=== PATIENT | female | born 1940 | race Caucasian/White ===

== ENCOUNTER 2023-10-29 23:08 | Inpatient (IN) | payer MEDICARE, OTHER, SELFPAY ==
[2023-10-29] VITALS (8 sets, daily range): BP systolic 127–162; BP diastolic 53–122; BMI 38.3
[2023-10-29 19:34] LABS: % Basophils 0.4 % (0-2); % Immature Granulocytes 0.6 % (0-0.5); % Monocytes 6.5 % (1.7-9.3); % Neutrophils 83.5 % (42.2-75.2); Absolute Basophils 0.1 10^3/uL (0-0.2); Absolute Eosinophils 0.1 10^3/uL (0-0.7); Absolute Immature Granulocytes 0.1 10^3/uL (0-0.05); Absolute Lymphocytes 1.1 10^3/uL (1.2-3.4); Absolute Monocytes 0.9 10^3/uL (0.1-0.6); Absolute Neutrophils 11.4 10^3/uL (1.4-6.5); Hematocrit 34.7 % (37.0-47.0); Hemoglobin 11.2 g/dL (12.0-16.0); Mean Corp Hgb Conc. 32.3 g/dL (33.0-37.0); Mean Corpuscular Hgb 29.2 pg (27.0-31.0); Mean Corpuscular Volume 90.6 fL (81.0-99.0); Mean Platelet Volume 10.5 fL (7.4-10.4); Nucleated Red Blood Cells % 0 %; Platelet Count 315 10^3/uL (130-400); Red Blood Cell Count 3.83 10^6/uL (4.20-5.40); Red Cell Dist. Width 14.4 % (11.5-14.5); White Blood Cell Count 13.7 10^3/uL (4.8-10.8)
[2023-10-29 19:57] LABS: ALT (SGPT) 23 U/L (0-35); AST (SGOT) 41 U/L (14-36); Albumin 3.6 g/dl (3.5-5.0); Alkaline Phosphatase 74 U/L (38-126); Blood Urea Nitrogen 16 mg/dl (7-17); Calcium 9.4 mg/dl (8.4-10.2); Carbon Dioxide 23 mmol/L (22-30); Chloride 104 mmol/L (98-107); Glucose 206 mg/dl (70-99); Magnesium 1.7 mg/dl (1.6-2.3); Potassium 4.3 mmol/L (3.5-5.1); Sodium 135 mmol/L (135-145); Total Bilirubin 1.5 mg/dl (0.2-1.3); Total Protein 6.9 g/dl (6.3-8.2); eGFR 50.48
--- NOTE | 2023-10-29 20:02 | ED.GENMED ---
History of Present Illness
General
Chief Complaint: Heart Rate Problem
Source: patient and family
Time Seen by Provider: 10/29/23 19:47
Travel History
Have you had any contact with someone who has COVID-19?: No
Do you have any symptoms of coronavirus? Fever > 100 degrees, chills, cough, shortness of breath, sore throat, loss of taste or smell, muscle aches, or headache?: No
History of Present Illness
History of Present Illness:
82-year-old female presents to the emergency room for evaluation of generalized weakness. Patient states she has not been out of bed for the past 2 days because she just feels poorly and has no energy. She denies having any fever. He denies any
sore throat or cough. Patient denies headache. Denies any focal weakness numbness or tingling
Past History
Past History
ED Past Medical History: Arrthythmia, Asthma, CAD, HTN, NIDDM and Other (TIA)
ED Past Surgical History: Cardiac, Cholecystectomy, Gynecological and Orthopedic
Social History
Tobacco: Non-smoker
Alcohol: None
Drug: None
Personal:
Living: with family
Employment: Retired
Family History
Family History: Diabetes
Phy Exam
Physical Exam
Physical Exam:
General: Awake, Alert, Oriented X3. No acute distress.
Vitals: Tachycardic
Head: Atraumatic
Eyes: Pupils equal, EOMI
Throat: Airway intact, no exudates
Neck: Trachea midline
Lungs: Clear and equal b/l
Heart: Tachycardic, irregular rate, no murmurs
Abd: Soft, Nontender, No pulsatile mass
Neuro: Nonfocal
Skin: Warm, dry, no rash
Extremities: pulses equal b/l, no edema
Course
Orders/Labs/Results
Orders:
Orders
10/29/23 19:15
Electrocardiogram (*1) Urgent
Reason for Study: Fatigue / Weakness
EKG- Treatment ONCE
CR Chest - 2 Views Urgent
Comment:
Reason For Exam: fatigue
10/29/23 19:29
Complete Blood Count/With Diff Urgent
Comprehensive Metabolic Panel Urgent
Magnesium Urgent
TSH Reflex To Free T4 Urgent
10/29/23 19:58
Urinalysis Reflex To Culture Urgent
0.9% Sodium Chloride 500 ml [Nss] 500 ml IV BOLUS
10/29/23 20:22
COVID-19 Antigen Urgent
Source: Nasal Swab
10/29/23 20:31
Diltiazem HCl [Cardizem] 15 mg IV NOW STA
10/29/23 20:32
CT Head W/o Iv Contrast Urgent
Comment:
Reason For Exam: altered mental status
10/29/23 22:37
Diltiazem 125 mg/125 ml Nss [Cardizem] 125 mg in 125 ml IV NOW
Initial dose in mg/hr, then titrate:: 5
Titrate to keep:: Heart rate 80-100 bpm
Titrate by mg/hr:: 5 mg/hr
Frequency of titrations (minutes):: 15
Maximum dose in mg/hr:: 15
Diltiazem HCl [Cardizem] 15 mg IV NOW STA
10/29/23 23:08
Admit/Transfer Patient As Directed
Co-Sign Provider:
Level of Care: Inpatient admission
Assign to:: IMU- Intermediate Care
Physician / Group: shanta العراقي
Diagnosis: hemorrghagic stroke
Reason for Hospitalization: hemorrhagic stroke
Expected length of stay greater than two midnights?: Yes
ELOS- Estimated Length of Stay in days: 3
I certify the patient meets the requirements for IP care: Yes
10/29/23 23:09
Code Status As Directed
Resuscitation Status: Do not resuscitate
Reached after discussion with pt or family/Healthcare POA: Yes
10/29/23 23:10
DNR Bracelet Application ONCE
Abnormal Lab Results
10/29/23
19:29
WBC 13.7 H 10^3/uL
(4.8-10.8)
RBC 3.83 L 10^6/uL
(4.20-5.40)
Hgb 11.2 L g/dL
(12.0-16.0)
Hct 34.7 L %
(37.0-47.0)
MCHC 32.3 L g/dL
(33.0-37.0)
MPV 10.5 H fL
(7.4-10.4)
Abs Immat Gran (auto) 0.1 H 10^3/uL
(0-0.05)
Absolute Neuts (auto) 11.4 H 10^3/uL
(1.4-6.5)
Absolute Lymphs (auto) 1.1 L 10^3/uL
(1.2-3.4)
Absolute Monos (auto) 0.9 H 10^3/uL
(0.1-0.6)
Immature Gran % 0.6 H %
(0-0.5)
Neutrophils % 83.5 H %
(42.2-75.2)
Lymphocytes % 8.0 L %
(20.5-51.1)
Creatinine 1.1 H mg/dL
(0.6-1.0)
Glucose 206 H mg/dl
(70-99)
Total Bilirubin 1.5 H mg/dl
(0.2-1.3)
AST 41 H U/L
(14-36)
10/29/23 19:29
10/29/23 19:29
Vital Signs
Initial and Last Documented VS:
Initial Vital Signs
Temp Pulse Resp BP Pulse Ox
98.4 F 117 20 127/64 96
10/29/23 19:12 10/29/23 19:12 10/29/23 19:12 10/29/23 19:12 10/29/23 19:12
Last Documented Vital Signs
Temp Pulse Resp BP Pulse Ox
98.4 F 129 19 154/96 95
10/29/23 19:12 10/29/23 23:22 10/29/23 23:15 10/29/23 23:22 10/29/23 23:15
MDM/Problems Addressed
Differential Diagnosis Includes:
COVID, influenza, UTI, electrode abnormality, CVA
MDM/Problems Addressed:
Patient's labs show mild elevation of her white blood cell count. Remainder of her labs are fairly reassuring. CT of the head was performed and shows a small intraparenchymal hemorrhage in the right thalamus. Patient is prescribed Eliquis however
she states that because she is been in bed for the past 2 days she has not taken any of her medications. This is substantiated by her heart rate which is uncontrolled A-fib. Discussed with Dr. Corona Lebron who is on-call for neurosurgery. He feels
patient can safely be monitored here at [facility]. Very very low chance of any surgical intervention. He recommends repeat CT tomorrow. Patient's atrial fibrillation with rapid ventricular response treated with Cardizem.
*Radiology
Radiology exam reviewed: radiology read reviewed
*Pulse Oximetry
Patient hypoxic: no
*EKG
Interpreted by ED Provider?: Yes
Interpretation: abnormal
Heart Rate: 127
Rate: tachycardiac
Rhythm: a-fib
QRS Pattern: right bundle branch block and other (Left anterior hemifascicular block)
Ischemia: non-specific ST changes
*Critical Care Note
Total Time (30-74mins, 75-104mins- exclusive of procedures): 40 min
comment:
Critical care statement: A total of 40 minutes of critical care time was provided for this patient. This includes management of unstable vital signs, evaluation of the patient at bedside, reviewing the patient's pertinent medical records, discussion
with consultants, review of old EKGs and review of pertinent medical records. This time with separate from time utilized to perform the aforementioned documented procedures
Patient Management
Social determinants of health affecting care: Strong social support
ED Attending Note
-
Portions of this chart may have been created with voice recognition software.� Occasional wrong word or��sound alike� substitutions may have occurred due to the inherent limitations of voice recognition software.
Discharge Plan
Departure
Patient Disposition: Admit
Date of Disposition: 10/29/23
Time of Disposition: 22:46
Admit to: IMU
Presentation/result/management discussed w/ accepting MD/DO: Hospitalist
Condition: Fair
Discharge Problem:
Thalamic hemorrhage with stroke, Atrial fibrillation with rapid ventricular response
Prescriptions:
No Action
duloxetine 30 MG capsule,delayed release(DR/EC)
30 mg PO DAILY
atorvastatin 80 MG tablet
80 mg PO QPM
Eliquis 5 MG tablet
5 mg PO BID
loratadine 10 MG tablet
10 mg PO DAILY
furosemide 40 MG tablet
40 mg PO Q48H
acetaminophen [Tylenol Extra Strength] 500 mg Tablet
1,000 mg PO Q6H PRN (Reason: mild pain)
pantoprazole 40 mg Tablet,Delayed Release (Dr/Ec)
40 mg PO QPM
ferrous sulfate [iron] 325 mg (65 mg iron) Tablet
325 mg PO DAILY
insulin lispro protamin-lispro [Humalog Mix 75-25 KwikPen] 100 unit/mL (75-25) Insulin Pen
30 unit SC DAILY
insulin lispro protamin-lispro [Humalog Mix 75-25 KwikPen] 100 unit/mL (75-25) Insulin Pen
25 unit SC QPM
folic acid 0.8 mg Capsule
0.8 mg PO DAILY
cholecalciferol (vitamin D3) 25 mcg (1,000 unit) Tablet
25 mcg PO BID
cranberry 450 mg Tablet
450 mg PO BID Qty: 0
Vision Shield
2 tab PO DAILY
dofetilide 125 MCG capsule
125 mcg PO Q12
metoprolol tartrate 100 MG tablet
100 mg PO BID
diltiazem HCl 240 mg Capsule,Extended Release 24hr
240 mg PO DAILY Qty: 30 0RF
prednisone 2.5 mg Tablet
2.5 mg PO Q2D Qty: 30 0RF
levalbuterol HCl 0.63 mg/3 mL Solution For Nebulization
0.63 mg inhalation R Q6HPRN PRN (Reason: shortness of breath/wheezing) Qty: 90 0RF
Referrals:
Kulwinder Briseno MD [Family Provider] -
Interventions
Interventions:
*Risk Screen - Suicide Last Done: 10/29/23 19:12
*General Assessment Last Done: 10/29/23 19:12
*Neglect/Abuse Screening Last Done: 10/29/23 19:12
ED- Fall Risk Assessment Last Done: 10/29/23 23:13
*ED COVID-19 Vaccine History Last Done: 10/29/23 23:13
ED- Cardiac Assessment Last Done: 10/29/23 23:13
ED- Pulmonary Assessment Last Done: 10/29/23 23:13
[2023-10-29] MEDS: NSS 500 IV (20:27)
[2023-10-29 20:31] LABS: TSH Reflex To Free T4 1.15 uIU/ml (0.47-4.68)
[2023-10-29 21:15] LABS: COVID-19 Antigen Negative (Negative)
[2023-10-29] MEDS: CARDIZEM 15 MG IV ×2 (21:41→23:22)
--- NOTE | 2023-10-29 22:47 | HPS.HSE ---
Addendum entered and electronically signed by Gaby Mc MD 10/29/23 23:53:
I saw and examined the patient.
The DUST COLLECTOR ATTENDANT's note was reviewed and I agree with the note.
Comment:
Ms. Sherice Delgado is a 82 yo woman with hx atrial fibrillation, CAD, DM presents to the ER for fatigue over past several days with CT Head showing small intraparenchymal hemorrhage in the right thalamus. Presented to the ER today because son
brought her to her PCP who recommended it. She continues to feel fatigued but mildly improved. Triage vitals stable, BP 127/64. Pulse 117. EKG with afib with RVR to 127, RBBB. Labs with WBC 13.7, Hg 11.2, creatinine 1.1 (baseline), glucose 206.
On exam patient is in no acute distress, CV S1, S2 irregular rhythm and tachycardic. She is awake, conversant, lifts all 4 extremities off bed > 5 seconds; no pronator drift. RADHA, EOMI, no facial asymmetry, speech normal.
CT HEAD
IMPRESSION:
Small intraparenchymal hemorrhage in the right thalamus as described above.
Mild atrophy
Critical value: Intracranial hemorrhage.
Patient will be admitted to IMU with plan for repeat head CT tomorrow AM. Neuro checks overnight. Hold Eliquis. Formal neurology consult tomorrow morning.
Regarding Afib, she was started on a diltiazem gtt in the ER. Will resume home metoprolol and Tikosyn this evening and home oral diltiazem tomorrow AM and hopefully wean dilt gtt to off.
Original Note:
Family Physician
-
Family Physician: Kulwinder Briseno
Chief Complaint
-
weakness
History of Present Illness
82-year-old female with PMH for atrial fib, asthma, CAD, Tn, DM, TIA presents to the emergency room for evaluation of generalized weakness.� Patient states she has not been out of bed for the past 3 days because she just feels poorly and has no
energy.�she is too weak to be out of the bed. she slept most of the time. she barely drink and ate anything. denied FAULKNER, dizzy or syncopal episode. denied fever, chills, chest pain, sob. denied abdominal pain, n,v, d. denied dysuria or hematuria.
CT with hemorrhagic stroke. admitting for further management.
Medical History
Past Medical History
Past Medical History: Reports Other
Additional Past Medical History:
TIA
A-fib
asthma
Coronary artery disease
Hypertension
Type 2 diabetes
TIA
Past Surgical History: Reports Other
Additional Past Surgical History:
Cholecystectomy
Left chest wall pacemaker
CABG x 4
Bilateral knee replacements
Social History
Tobacco: Non-smoker
Alcohol: None
Drug: None
Personal: Single
Living: Alone
Family History
Family History: Not pertinent
Allergies / Home Medications
Allergies reflects when Allergies were last updated in [employer].
Home Medications with original date entered in [employer]
Allergy/Medication List:
Allergies
Allergy/AdvReac Type Severity Reaction Status Date / Time
Cephalosporins Allergy SOB from Verified 10/29/23 19:12
?med vs
afib/RVR
doxycycline Allergy Shortness Verified 10/29/23 19:12
of Breath
mold Allergy throat Verified 10/29/23 19:12
swells;difficulty
breathing
Penicillins Allergy hives;difficulty Verified 10/29/23 19:12
breathing;
perfume Allergy SOB/DIFFICULTY Verified 10/29/23 19:12
BREATHING
Home Medications
duloxetine 30 mg capsule,delayed release 30 mg PO DAILY Mental Health 11/17/13
apixaban 5 mg tablet (Eliquis) 5 mg PO BID Blood clot prevention/tx 11/25/19
atorvastatin 80 mg tablet 80 mg PO QPM High cholesterol 11/25/19
loratadine 10 mg tablet 10 mg PO DAILY Allergies 04/20/20
furosemide 40 mg tablet 40 mg PO Q48H Fluid retention/Swelling 06/21/20
Vision Shield 2 tab PO DAILY Supplement 09/24/23
acetaminophen 500 mg tablet (Tylenol Extra Strength) 1,000 mg PO DAILYPRN PRN mild pain 09/24/23
cholecalciferol (vitamin D3) 25 mcg (1,000 unit) tablet 25 mcg PO BID Supplement 09/24/23
cranberry 1 tab PO BID Supplement 09/24/23
dofetilide 125 mcg capsule 125 mcg PO Q12 Arrhythmia 09/24/23
ferrous sulfate 325 mg (65 mg iron) tablet (iron) 325 mg PO DAILY Supplement 09/24/23
folic acid 0.8 mg capsule 0.8 mg PO DAILY Supplement 09/24/23
insulin lispro protamine-lispro 100 unit/mL (75-25) subcutaneous pen (Humalog Mix 75-25 KwikPen) 25 unit SC QPM Diabetes 09/24/23
insulin lispro protamine-lispro 100 unit/mL (75-25) subcutaneous pen (Humalog Mix 75-25 KwikPen) 30 unit SC DAILY Diabetes 09/24/23
metoprolol tartrate 100 mg tablet 100 mg PO BID Blood Pressure 09/24/23
pantoprazole 40 mg tablet,delayed release 40 mg PO QPM Gastrointestinal Issue 09/24/23
diltiazem HCl 240 mg capsule,extended release 24 hr 240 mg PO DAILY #30 caps 10/05/23
levalbuterol HCl 0.63 mg/3 mL solution for nebulization 0.63 mg (3 mL) inhalation R Q6HPRN PRN shortness of breath/wheezing #90 mL 10/05/23
prednisone 2.5 mg tablet 2.5 mg PO Q2D #30 tabs 10/05/23
Review of Systems
-
Constitutional: Reports No Symptoms and Fatigue
EENT: Reports No Symptoms
Respiratory: Reports No Symptoms
Cardiac: Reports No Symptoms
Abdomen/GI: Reports No Symptoms
: Reports No Symptoms
Musculoskeletal: Reports No Symptoms
Skin: Reports No Symptoms
Neurological: Reports Weakness
Endocrine: Reports No Symptoms
Hematologic/Lymphatic: Reports No Symptoms
Psych: Reports No Symptoms
Physical Exam
Vital Signs
Vital Signs
Temp Pulse Resp BP Pulse Ox
98.4 F 114 20 155/57 96
10/29/23 19:12 10/29/23 21:41 10/29/23 19:12 10/29/23 21:41 10/29/23 19:12
Physical Exam
General: Well Developed, Well Nourished and No Apparent Distress
HEENT: NormoCephalic, Moist mucous membranes and Atraumatic
Respiratory: Clear
Cardiac: S1/S2 and Regular Rhythm; No Murmur or Rub
GI: Soft, Non Tender, Non Distended and Normal Bowel Sounds; No Organomegaly
Rectal: Deferred by Provider
Musculoskeletal: No Clubbing, No Cyanosis and No Edema
Skin: No Rash
Neuro: AO x 3 and Nonfocal/grossly intact
Psych: Calm
Laboratory Results
-
10/29/23 19:29
10/29/23 19:29
Laboratory Results
Total Bilirubin 1.5 mg/dl (0.2-1.3) H 10/29/23 19:29
AST 41 U/L (14-36) H 10/29/23 19:29
ALT 23 U/L (0-35) 10/29/23 19:29
Alkaline Phosphatase 74 U/L (38-126) 10/29/23 19:29
Data Reviewed
-
CT Scan: Report Reviewed by me
Lab Data: Labs Reviewed by me
Impression/Plan
-
#lethargic likely from hemorrhagic infarct in the right thalamus
-Head CT with impression of Small intraparenchymal hemorrhage in the right thalamus as described above.Mild atrophy
-repeat CT in am
-neurology, neuro surgeon consulted
-Hold Eliquis
-Atorvastatin continued
-Stroke protocol
-Obtain A1c, lipid profile
-Neurology consult
#atrial fib with RVR
-Cardizem continued
-Tikosyn continued
-Metoprolol continued
# Leukocytosis likely stress reaction/ on steroids
-WBC 13.7
-Obtain UA
-Chest x-ray with impression of No acute disease of the chest.
# Anemia of chronic disease
-Hemoglobin 11.2
-Ferrous sulfate continued
-Continue to monitor
# Chronic kidney disease stage IIIA
-Creatinine 1.1
-Continue to monitor
Inflammatory arthritis
-Continue prednisone
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
# Coronary artery disease status post CABG
-Continue statin
#Essential hypertension
#Type 2 diabetes
-Insulin sliding scale
-CHO diet
-Lispro 30 units daily and 25 units every p.m.
#Hyperlipidemia
-On statin
#Obesity
#Depression
-Continue duloxetine
# DNR
[2023-10-29] MEDS: CARDIZEM 125 IV (23:22)
[2023-10-30] VITALS (25 sets, daily range): BP systolic 89–151; BP diastolic 52–140; PULSE 81; O2SAT 95–96; BMI 35.0
[2023-10-30] MEDS: LOPRESSOR 100 MG PO ×3 (00:28→20:31)
[2023-10-30] MEDS: TIKOSYN 125 MCG PO ×3 (00:58→20:31)
[2023-10-30] MEDS: LASIX 40 MG PO (03:37)
[2023-10-30] MEDS: DELTASONE 2.5 MG PO (03:39)
--- NOTE | 2023-10-30 04:16 | PTCARENOTE ---
Rec'd pt from ED on 15 cardizem gtt. Upon assessment, pt in NSR with prolonged QT and BBB, rate 70s. Gtt titrated to 10 per protocol. This RN noted that medication order status discontinued, but an incomplete order is present for nursing to wean
cardizem gtt to 5 one hour after PO medication this AM. SIDDHARTHA Carter consulted via TT to renew gtt order for this shift, declined to renew gtt order. Dr. Mc consulted regarding status of medication order and incomplete order with gtt
instructions. Dr. Mc ordered this RN to stop the cardizem gtt abruptly without weaning, since pt is in SR. Gtt stopped by this RN.
[2023-10-30 04:26] LABS: Hematocrit 32.8 % (37.0-47.0); Hemoglobin 10.4 g/dL (12.0-16.0); Mean Corp Hgb Conc. 31.7 g/dL (33.0-37.0); Mean Corpuscular Hgb 29.5 pg (27.0-31.0); Mean Corpuscular Volume 92.9 fL (81.0-99.0); Mean Platelet Volume 11.1 fL (7.4-10.4); Platelet Count 284 10^3/uL (130-400); Red Blood Cell Count 3.53 10^6/uL (4.20-5.40); Red Cell Dist. Width 14.5 % (11.5-14.5); White Blood Cell Count 12.8 10^3/uL (4.8-10.8)
--- NOTE | 2023-10-30 04:39 | PTCARENOTE ---
Upon receiving pt from ED, NIH was 0. Pt was AAO, exhibited no weakness, sensory deficit, aphasia. Did present with forgetfulness, but was able to hold oriented conversation with staff w/o difficulty. Very occasionally having trouble finding the
right word. Upon secondary assessment, pt is now disoriented to place, but remains able to state name, , month, and year. Pt demonstrates expressive aphasia, having difficulty finding the words she is looking for during conversation. Pt is still
able to hold oriented conversation, but spends a lot of time searching for the words she is trying to say. Pt states she does not know where she is or how she got here. Pt reoriented to situation. Bed alarm in place for pt safety. Call sykes within
reach.
[2023-10-30 04:49] LABS: Blood Urea Nitrogen 22 mg/dl (7-17); Calcium 9.3 mg/dl (8.4-10.2); Carbon Dioxide 24 mmol/L (22-30); Chloride 104 mmol/L (98-107); Estimated Creatinine Clearance 39 ml/min; Glucose 102 mg/dl (70-99); HDL Cholesterol 35 mg/dl; LDL Cholesterol, Calculated 42 mg/dl; Potassium 4.1 mmol/L (3.5-5.1); Sodium 139 mmol/L (135-145); Total Cholesterol 95 mg/dl (50-199); Triglyceride 90 mg/dl (10-149); Very Low Density Lipoprotein 18 mg/dl (0-30); eGFR 50.48
--- NOTE | 2023-10-30 05:01 | W.PN.UPDATE ---
Update Note
Progress Note Update
At 0445 RN notified SENIOR TECHNICAL ANALYST change in NIH from zero to 1, with expressive aphasia, disorientation to place otherwise Oriented. Will order CT scan early for any changes.
At 05 CT scan report noted, advised RN continue NIH, neurologist consult in place
--- NOTE | 2023-10-30 07:13 | CON.NEURO4 ---
Consultation - Neurology 4
-
CONSULTING PHYSICIAN: Elsa Jerez
REFERRING PHYSICIAN: Hospitalist
DICTATED BY: Elsa Jerez
DATE/TIME OF REQUEST: 10/30/23
DATE/TIME OF CONSULTATION: 10/30/23
Reason for Consultation: Right thalamic ICH
History of Present Illness:
Patient is an 82-year-old woman with a past medical history of atrial fibrillation on anticoagulation presenting the hospital with generalized weakness, fatigue poor energy starting over the past couple of days is approximately 2/5. Patient has
been compliant with apixaban with no recent bleeding issues denies any headache unilateral weakness speech difficulty or vision difficulty. She does reports that she thought she had to have a TIA or stroke years in the past but cannot give further
details and says that she did not have any residual effects from it.
She has had no history of bleeding in the brain to her knowledge has not had a neck trauma or head trauma recently.
CT head noncontrast performed the ER did show right basal ganglia intracranial hemorrhage.
Past Medical History: Atrial fibrillation, TIA, asthma, CAD s/p CABG, pacemaker
Surgical History: Pacemaker, CABG 4x, cholecystectomy
Family History: Non-contributory
Social History: Retired, lives alone, no tobacco or alcohol
Review of Symptoms:
Patient denies any fever, headache, chest pain, shortness of breath, GI or symptoms.
Physical Exam:
Elderly woman no acute distress no signs of head or neck trauma eyes are clear oropharynx is clear neck with no masses, heart rate regular breathing unlabored abdomen soft nontender no lower extremity edema
Neurologic Examination:
The patient is awake, alert and oriented x 3. (He/She) is able to follow commands and answer questions appropriately. There is no aphasia or dysarthria. On cranial nerve assessment, pupils are 3 mm bilateral, round and reactive to light and
accommodation. Visual bush are full. Extraocular movements are intact. Facial sensations are intact and bilaterally symmetrical, there is no facial asymmetry. Hearing is intact bilaterally to normal conversation volume. Tongue palate and uvula
are midline. Sternocleidomastoid strengths are full bilaterally. Motor strengths are 5/5 bilateral upper and lower extremities on medical research Elem scale. There is no drift or involuntary movement noted. Deep tendon reflexes are 2+ bilateral
upper and lower extremities and Babinski is absent bilaterally. Sensations of pain, touch, temperature and vibration are intact and bilaterally symmetrical. There was no extinction noted on double simultaneous stimulation. Coordination is intact by
finger to nose bilaterally.
Neuro Imaging:
Impressions
Right-sided basal ganglia intracranial hemorrhage occurring while on apixaban. Etiology is most likely due to small vessel disease given the location and past medical conditions with vascular disease. Amyloid angiopathy would also be a
consideration with her age although this is more often associated with cortical location of hemorrhage.
Recommendations:
1. NIH stroke scales and neurologic check
2. Hold anticoagulant antiplatelet and to prophylaxis products currently
3. Patient will be acceptable for starting heparin DVT prophylaxis heparin products tomorrow morning if she continues to remain stable with neurologic symptoms
4. Anticipate that she can be started on aspirin 81 mg daily on 11/03.
5. Check brain MRI without contrast which may help to evaluate if she has signs of amyloid angiopathy as this can aid in decisions on whether or not to pursue continued anticoagulation in the long-term for the patient and
6. Recommend systolic blood pressure goal less than 1 6
7. Speech physical Occupational Therapy evaluations
8. Not recommending any seizure prophylaxis medication
9. Minimize sedating medications
Will
Discussed patient care with: Patient, nursing
Allergies
-
Allergies
Allergy/AdvReac Type Severity Reaction Status Date / Time
Cephalosporins Allergy SOB from Verified 10/29/23 19:12
?med vs
afib/RVR
doxycycline Allergy Shortness Verified 10/29/23 19:12
of Breath
mold Allergy throat Verified 10/29/23 19:12
swells;difficulty
breathing
Penicillins Allergy hives;difficulty Verified 10/29/23 19:12
breathing;
perfume Allergy SOB/DIFFICULTY Verified 10/29/23 19:12
BREATHING
NIH Stroke Score
Subsequent NIH Scale
Date of Subsequent NIH Scale: 10/30/23
Time of Subsequent NIH Scale: 12:35
NIH Stroke Score
Level of Consciousness: 0 - Alert
LOC Questions: 1-Answers one correctly
LOC Commands: 0-Performs both correctly
Best Horizontal Gaze: 0-Normal
Visual Bush: 0=Normal, no visual loss
Facial Palsy: 0=Normal, symmetrical
Motor - Right Arm: 0=No drift 10 seconds
Motor - Left Arm: 0=No drift 10 seconds
Motor - Right Le-No drift 5 seconds
Motor - Left Le-No drift 5 seconds
Limb Ataxia: 0-Absent
Sensation: 0-Normal
Best Language: 0-No aphasia
Dysarthria: 0-Normal
Extinction and Inattention: 0-No abnormality
Total Score:: 1
Home Medications
-
Home Medications
duloxetine 30 mg capsule,delayed release 30 mg PO DAILY Mental Health 11/17/13
apixaban 5 mg tablet (Eliquis) 5 mg PO BID Blood clot prevention/tx 11/25/19
atorvastatin 80 mg tablet 80 mg PO QPM High cholesterol 11/25/19
loratadine 10 mg tablet 10 mg PO DAILY Allergies 04/20/20
furosemide 40 mg tablet 40 mg PO Q48H Fluid retention/Swelling 06/21/20
Vision Shield 2 tab PO DAILY Supplement 09/24/23
acetaminophen 500 mg tablet (Tylenol Extra Strength) 1,000 mg PO Q6H PRN mild pain 09/24/23
cholecalciferol (vitamin D3) 25 mcg (1,000 unit) tablet 25 mcg PO BID Supplement 09/24/23
cranberry fruit 450 mg tablet (cranberry) 450 mg PO BID Supplement ##0 09/24/23
dofetilide 125 mcg capsule 125 mcg PO Q12 Arrhythmia 09/24/23
ferrous sulfate 325 mg (65 mg iron) tablet (iron) 325 mg PO DAILY Supplement 09/24/23
folic acid 0.8 mg capsule 0.8 mg PO DAILY Supplement 09/24/23
insulin lispro protamine-lispro 100 unit/mL (75-25) subcutaneous pen (Humalog Mix 75-25 KwikPen) 25 unit SC QPM Diabetes 09/24/23
insulin lispro protamine-lispro 100 unit/mL (75-25) subcutaneous pen (Humalog Mix 75-25 KwikPen) 30 unit SC DAILY Diabetes 09/24/23
metoprolol tartrate 100 mg tablet 100 mg PO BID Blood Pressure 09/24/23
pantoprazole 40 mg tablet,delayed release 40 mg PO QPM Gastrointestinal Issue 09/24/23
diltiazem HCl 240 mg capsule,extended release 24 hr 240 mg PO DAILY #30 caps 10/05/23
levalbuterol HCl 0.63 mg/3 mL solution for nebulization 0.63 mg (3 mL) inhalation R Q6HPRN PRN shortness of breath/wheezing #90 mL 10/05/23
prednisone 2.5 mg tablet 2.5 mg PO Q2D #30 tabs 10/05/23
Vital Signs / Labs
-
Vital Signs and Labs:
Temp Pulse Resp BP Pulse Ox
98.6 F 82 30 100/75 96
10/30/23 03:10 10/30/23 06:38 10/30/23 06:38 10/30/23 06:38 10/30/23 06:38
10/30/23 03:52
10/30/23 03:52
10/29/23 10/30/23
19:29 03:52
WBC 13.7 H 12.8 H
RBC 3.83 L 3.53 L
Hgb 11.2 L 10.4 L
Hct 34.7 L 32.8 L
MCHC 32.3 L 31.7 L
MPV 10.5 H 11.1 H
Abs Immat Gran (auto) 0.1 H
Absolute Neuts (auto) 11.4 H
Absolute Lymphs (auto) 1.1 L
Absolute Monos (auto) 0.9 H
Immature Gran % 0.6 H
Neutrophils % 83.5 H
Lymphocytes % 8.0 L
BUN 22 H
Creatinine 1.1 H 1.1 H
Glucose 206 H 102 H
Total Bilirubin 1.5 H
AST 41 H
[2023-10-30 08:02] LABS: Direct Bilirubin 0.6 mg/dl (0.0-0.4)
[2023-10-30 08:14] LABS: Glucose - Point of Care 120 mg/dl (70-99)
[2023-10-30] MEDS: NOVOLOG FLEXPEN-LOW RESISTANCE SC (08:19)
--- NOTE | 2023-10-30 08:22 | W.PN.HOSP.TC ---
Today's Communication/Plan
-
see A/P
Assessment / Plan
Assessment / Plan
HPI: 82 yo woman with hx atrial fibrillation, CAD, DM presented to the ER for fatigue over past several days with CT Head showing small intraparenchymal hemorrhage in the right thalamus.
Brought in by son per her PCP recommendation.� She continues to feel fatigued but mildly improved.
CT HEAD:
Small intraparenchymal hemorrhage in the right thalamus. Mild atrophy
A/P:
# lethargic likely due to small intraparenchymal hemorrhage in the right thalamus.
# hemorrhagic stroke
repeat CTH with stable small acute right thalamic hemorrhage.
Neurology and neurosurgery to see.
Hold Eliquis
Cont Atorvastatin
Follow A1c
LDL at 42
# Acute hypoxic resp insufficiency
placed on 2L NC , wean as tolerated, pt not on home O2
CXR without acute disease
Pt denies to resp symptoms
# Atrial fib with RVR
Off Cardizem drip
Cont ANIMAL ATTENDANT Cardizem, Lopressor, Tikosyn
Hold ANIMAL ATTENDANT Eliquis
# Mild Leukocytosis likely stress reaction/ on steroids
Follow urine Cx
Chest x-ray without disease of the chest.
# Anemia of chronic disease
Hemoglobin 11.2
Ferrous sulfate continued
Continue to monitor
# Chronic kidney disease stage IIIA
Creatinine 1.1
Continue to monitor
# Inflammatory arthritis
Continue prednisone
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
# Coronary artery disease status post CABG
Continue statin
# Essential hypertension
# Type 2 diabetes
Insulin sliding scale
CHO diet
Cont Insulin 75/25 at decreased dose: 15 units daily (ANIMAL ATTENDANT 30 units), and 12 units HS (ANIMAL ATTENDANT 25 units HS)
# Hyperlipidemia
On statin
# Obesity
# Depression
Continue duloxetine
DVT ppx: SCD
DNR
DW RN
Anticipated Discharge: 24 - 48 hours
Subjective/Interval History
-
Date of Service: October 30, 2023
Objective Data
-
Labs:
Laboratory Results
10/30/23
03:52
WBC 12.8 H
Hgb 10.4 L
Hct 32.8 L
Plt Count 284
Sodium 139
Potassium 4.1
Chloride 104
Carbon Dioxide 24
BUN 22 H
Creatinine 1.1 H
Glucose 102 H
Calcium 9.3
Vital Signs:
Vital Signs
Temp Pulse Resp BP Pulse Ox
36.7 C 82 30 100/75 96
10/30/23 08:07 10/30/23 06:38 10/30/23 06:38 10/30/23 06:38 10/30/23 06:38
I&O
10/29/23 10/30/23 10/31/23
06:59 06:59 06:59
Intake Total 420 / 420
Balance 420 / 420
Review of Systems
-
All other systems: Reviewed and negative
Physical Exam
-
General: Well Developed, Well Nourished, No Apparent Distress, Comfortable and Conversant; Negative Respiratory Distress
HEENT: Normocephalic, Atraumatic, Nose Appears Normal and Ears Appear Normal; Negative Oxygen
Respiratory: Clear to Auscultation and Non Labored Respirations; Negative Accessory Resp Muscle Use
Cardiac: Regular Rhythm and S1/S2
GI: Soft, Nontender, Nondistended and Normal Bowel Sounds
Skin: Warm and Dry
Neuro: Awake, Alert, Oriented, AO x 3, No Motor Deficits and Nonfocal/Grossly Intact; Negative Slurred Speech or Facial Droop
Psych: Calm and Intact Judgement/Insight
Data Reviewed
-
CT Scan: Report Reviewed by me
Labs: Labs Reviewed by me
[2023-10-30] MEDS: CARDIZEM CD 240 MG PO (08:30)
[2023-10-30] MEDS: FEOSOL 325 MG PO (08:31)
[2023-10-30] MEDS: CLARITIN 10 MG PO (08:31)
[2023-10-30] MEDS: CYMBALTA DELAYED RELEASE 30 MG PO (08:31)
[2023-10-30] MEDS: FOLVITE 0.800000000000000044 MG PO (08:31)
[2023-10-30] MEDS: NOVOLOG MIX 70/30 FLEXPEN 15 UNITS SC (08:32)
--- NOTE | 2023-10-30 10:13 | VNURNOTE ---
Patient is current with [facility] since 10/06 w/ SN/PT, will monitor progress and plan at discharge.
--- NOTE | 2023-10-30 11:22 | PTOTSP ---
Dysphagia and Speech/Language Evaluation
Oral stage functional. Suspect pharyngeal stage WFL based on clinical bedside swallowing evaluation. A single delayed throat clear was noted after solids. Dry cough also noted in absence of PO. Patient endorsed chronic cough at baseline and has
a history of asthma. Suspect throat clear unrelated - though cannot fully rule this out at the bedside. Continue Regular, thin liquid diet with swallowing precautions below.
Quick Aphasia Battery Form 1 completed. QAB overall score was 8.49 which is indicative of a mild expressive aphasia. Patient also had WFL-mild dysphonia with reduced volume and minimal hoarse quality. She has baseline cognitive changes after a
stroke in 2016 per chart review.
Recommend:
1. Regular, Thin Liquids
2. Medications as best tolerated
3. Strategies: single sips/bites, slow rate
4. Continued speech/language therapy at the acute care level and after D/C at this time. Further cognitive linguistic screen warranted.
[2023-10-30 12:19] LABS: Glucose - Point of Care 232 mg/dl (70-99)
[2023-10-30] MEDS: NOVOLOG FLEXPEN-LOW RESISTANCE 2 UNITS SC ×2 (12:35→17:42)
--- NOTE | 2023-10-30 12:45 | CM ---
Addendum entered by Lashanda Garrett 10/30/23 15:48:
i met with son jennifer who is leaning towards taking patient home with [facility] through [facility] and hiring additional help for patient in the home.
Original Note:
met with patient who lives alone at [facility] [place] in modular home with 3 steps to enter.it is one story dwelling.she ambulates with a rolling walker and does not drive.she is adm with right thalamus hemorrhage.she is current with
[facility].patient's pcp is dr chris reynolds.she uses [facility] in [place] for her meds.patient was seen by richard who recs acute rehab if she is unable functionally to return home.patient is speaking with her son jennifer kyle to determine whether
she van return home with [facility] and additional help in the son. patient did have some work finding difficulty when i met with her.
Plan:home with help vs acute rehab stay.
--- NOTE | 2023-10-30 16:25 | CON.NS ---
Chief Complaint
-
ICH
History of Present Illness
This is a 82 yo female admitted yesterday for 'not feeling right'. CT head showed small right thalamic ICH, CT repeated and is stable. On eliquis for afib. Has been held, not reversed due to her not taking for atleast 2 days.
Review of Systems
-
10 pt ROS completed and negative except as stated
Medication and Allergies
Home Medications
Home Medications
Medication Instructions Recorded
duloxetine 30 mg capsule,delayed 30 mg PO DAILY Mental Health 11/17/13
release
apixaban 5 mg tablet (Eliquis) 5 mg PO BID Blood clot 11/25/19
prevention/tx
atorvastatin 80 mg tablet 80 mg PO QPM High cholesterol 11/25/19
loratadine 10 mg tablet 10 mg PO DAILY Allergies 04/20/20
furosemide 40 mg tablet 40 mg PO Q48H Fluid 06/21/20
retention/Swelling
Vision Shield 2 tab PO DAILY Supplement 09/24/23
acetaminophen 500 mg tablet 1,000 mg PO Q6H PRN mild pain 09/24/23
(Tylenol Extra Strength)
cholecalciferol (vitamin D3) 25 25 mcg PO BID Supplement 09/24/23
mcg (1,000 unit) tablet
cranberry fruit 450 mg tablet 450 mg PO BID Supplement ##0 09/24/23
(cranberry)
dofetilide 125 mcg capsule 125 mcg PO Q12 Arrhythmia 09/24/23
ferrous sulfate 325 mg (65 mg 325 mg PO DAILY Supplement 09/24/23
iron) tablet (iron)
folic acid 0.8 mg capsule 0.8 mg PO DAILY Supplement 09/24/23
insulin lispro protamine-lispro 25 unit SC QPM Diabetes 09/24/23
100 unit/mL (75-25) subcutaneous
pen (Humalog Mix 75-25 KwikPen)
insulin lispro protamine-lispro 30 unit SC DAILY Diabetes 09/24/23
100 unit/mL (75-25) subcutaneous
pen (Humalog Mix 75-25 KwikPen)
metoprolol tartrate 100 mg tablet 100 mg PO BID Blood Pressure 09/24/23
pantoprazole 40 mg tablet,delayed 40 mg PO QPM Gastrointestinal Issue 09/24/23
release
diltiazem HCl 240 mg 240 mg PO DAILY #30 caps 10/05/23
capsule,extended release 24 hr
levalbuterol HCl 0.63 mg/3 mL 0.63 mg (3 mL) inhalation R Q6HPRN 10/05/23
solution for nebulization PRN shortness of breath/wheezing
#90 mL
prednisone 2.5 mg tablet 2.5 mg PO Q2D #30 tabs 10/05/23
Allergies
Allergies
Allergy/AdvReac Type Severity Reaction Status Date / Time
Cephalosporins Allergy SOB from Verified 10/29/23 19:12
?med vs
afib/RVR
doxycycline Allergy Shortness Verified 10/29/23 19:12
of Breath
mold Allergy throat Verified 10/29/23 19:12
swells;difficulty
breathing
Penicillins Allergy hives;difficulty Verified 10/29/23 19:12
breathing;
perfume Allergy SOB/DIFFICULTY Verified 10/29/23 19:12
BREATHING
Physical Exam
-
Exam:
full UE and LE strength
AAOx3
normal sensation
speech clear and fluent
no dysmetria
some LE spastic movements but no hoffmans or clonus
CT head with small right thalamic ICH stable on repeat
Problems
-
Problem Status Onset Code
Thalamic hemorrhage with stroke I61.9
Atrial fibrillation with rapid ventricular response I48.91
Assessment / Plan
-
ICH
-hold eliequis and restart as per neurology recs
-agree with MRI
-maintain normotension
-no surgical interventions
-ok for DVT prophylaxis tomorrow
-will follow peripherally for MRI result
--- NOTE | 2023-10-30 16:45 | PTCARENOTE ---
Recd pt this AM. OOB x1 assist with walker to bathroom. in Chair most of day. remains NIHSS score 1 for expressive aphasia, mild. forgetful at times, son reports that is not new and has been ongoing for awhile. The aphasia is new. vital signs
stable. pleasant and coopertive.
[2023-10-30 17:13] LABS: Glucose - Point of Care 228 mg/dl (70-99)
[2023-10-30] MEDS: NOVOLOG MIX 70/30 FLEXPEN 12 UNITS SC (17:43)
[2023-10-30] MEDS: PROTONIX 40 MG PO (17:45)
[2023-10-30] MEDS: LIPITOR 80 MG PO (17:45)
[2023-10-30 23:05] LABS: Glucose - Point of Care 202 mg/dl (70-99)
[2023-10-31] VITALS (19 sets, daily range): BP systolic 81–159; BP diastolic 43–115; PULSE 60; O2SAT 98–99; BMI 34.6
--- NOTE | 2023-10-31 03:34 | PTCARENOTE ---
NIHSS remains at 1. Pt is AAOx3 when asked direct questions. Pt at times is confused and forgets where she is thinking she's just doing laundry. Pt easily reoriented. Neuro checks WNL. Pt resting comfortably in bed with call sykes in reach.
[2023-10-31 05:32] LABS: Hematocrit 29.8 % (37.0-47.0); Hemoglobin 9.8 g/dL (12.0-16.0); Mean Corp Hgb Conc. 32.9 g/dL (33.0-37.0); Mean Corpuscular Hgb 29.8 pg (27.0-31.0); Mean Corpuscular Volume 90.6 fL (81.0-99.0); Mean Platelet Volume 10.9 fL (7.4-10.4); Platelet Count 299 10^3/uL (130-400); Red Blood Cell Count 3.29 10^6/uL (4.20-5.40); Red Cell Dist. Width 14.6 % (11.5-14.5); White Blood Cell Count 12.4 10^3/uL (4.8-10.8)
[2023-10-31 05:39] LABS: Blood Urea Nitrogen 47 mg/dl (7-17); Calcium 9.4 mg/dl (8.4-10.2); Carbon Dioxide 22 mmol/L (22-30); Chloride 101 mmol/L (98-107); Estimated Creatinine Clearance 25 ml/min; Glucose 212 mg/dl (70-99); Potassium 3.8 mmol/L (3.5-5.1); Sodium 136 mmol/L (135-145); eGFR 29.94
--- NOTE | 2023-10-31 08:26 | W.PN.NEURO.1 ---
Today's Communication / Plan
-
May restart anticoagulation based on small size of initial lesion and time already passed
Pending brain MRI without contrast
Neuro Assessment/Plan
Assessment
Right-sided basal ganglia intracranial hemorrhage occurring while on apixaban. Etiology is most likely due to small vessel disease given the location and past medical conditions with vascular disease. Amyloid angiopathy would also be a
consideration with her age although this is more often associated with cortical location of hemorrhage.
Plan
Recommendations:
May restart anticoagulation based on small size of initial lesion and time already passed
Pending brain MRI without contrast
Will follow pending results.
Subjective/Objective
Subjective Data
Date of Service: October 31, 2023
Objective Data
Vital Signs
Temp Pulse Resp BP Pulse Ox
36.7 C 65 17 145/58 92
10/31/23 07:30 10/31/23 08:00 10/31/23 08:00 10/31/23 08:00 10/31/23 08:00
Lab Results
10/31/23 04:49
10/31/23 04:49
Sodium 136 mmol/L (135-145) 10/31/23 04:49
Potassium 3.8 mmol/L (3.5-5.1) 10/31/23 04:49
BUN 47 mg/dl (7-17) H 10/31/23 04:49
Glucose 212 mg/dl (70-99) H 10/31/23 04:49
Calcium 9.4 mg/dl (8.4-10.2) 10/31/23 04:49
LDL Cholesterol, Calc 42 mg/dl 10/30/23 03:52
Patient Allergies
Cephalosporins Allergy (Verified 10/29/23 19:12)
SOB from ?med vs afib/RVR
doxycycline Allergy (Verified 10/29/23 19:12)
Shortness of Breath
mold Allergy (Verified 10/29/23 19:12)
throat swells;difficulty breathing
Penicillins Allergy (Verified 10/29/23 19:12)
hives;difficulty breathing;
perfume Allergy (Verified 10/29/23 19:12)
SOB/DIFFICULTY BREATHING
Modified [place]field Score (MRS)
-
MRS Score:
Past History
Past History
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
kidney disease)
ED Past Surgical History: Cardiac (pacemaker), Cholecystectomy, Gynecological and Orthopedic (Bilateral knee replacements)
Social History
Tobacco: Non-smoker
Alcohol: None
Drug: None
Personal:
Living: with family
Employment: Retired
Family History
Family History: Diabetes
Medications
-
Medications:
Generic Name Dose Route Start Last Admin
Trade Name Freq PRN Reason Stop Dose Admin
Acetaminophen 650 mg 10/30/23 02:25
Acetaminophen 650 Mg Rectal Suppository RECTAL 11/27/23 02:24
Q4HPRN PRN
FAULKNER, mild pain, or temp >100.4F
Acetaminophen 650 mg 10/30/23 02:25
Acetaminophen 325 Mg Tablet PO 11/27/23 02:24
Q4HPRN PRN
FAULKNER, mild pain, or temp >100.4F
Atorvastatin Calcium 80 mg 10/30/23 18:00 10/30/23 17:45
Atorvastatin (Lipitor) 80 Mg Tablet PO 11/27/23 17:59 80 mg
QPM MALINDA Administration
Dextrose 12.5 grams 10/30/23 02:25
Dextrose 50% (0.5 Grams/Ml) 50 Ml Syringe IV 11/27/23 02:24
[id number] PRN
hypoglycemia
Protocol
Diltiazem HCl 240 mg 10/30/23 08:00 10/30/23 08:30
Diltiazem 240 Mg Extended Release (24 H) Capsule PO 11/27/23 07:59 240 mg
DAILY MALINDA Administration
Dofetilide 125 mcg 10/30/23 08:00 10/30/23 20:31
Dofetilide 125 Mcg Capsule PO 11/27/23 07:59 125 mcg
Q12 MALINDA Administration
Duloxetine HCl 30 mg 10/30/23 08:00 10/30/23 08:31
Duloxetine Delayed Release 30 Mg Capsule PO 11/27/23 07:59 30 mg
DAILY MALINDA Administration
Ferrous Sulfate 325 mg 10/30/23 08:00 10/30/23 08:31
Ferrous Sulfate 325 Mg Tablet PO 11/27/23 07:59 325 mg
DAILY MALINDA Administration
Folic Acid 0.8 mg 10/30/23 08:00 10/30/23 08:31
Folic Acid 0.4 Mg Tablet PO 11/27/23 07:59 0.8 mg
DAILY MALINDA Administration
Furosemide 40 mg 10/30/23 02:25 10/30/23 03:37
Furosemide 40 Mg Tablet PO 11/27/23 02:24 40 mg
Q48H MALINDA Administration
Glucagon 1 mg 10/30/23 02:25
Glucagon 1 Mg Vial IM 11/27/23 02:24
PRN PRN
hypoglycemia
Protocol
Sodium Chloride 500 mls @ 60 mls/hr 10/31/23 08:00
Nss IV 10/31/23 16:19
.Q8H20M MALINDA
Insulin Aspart 0 units 10/30/23 07:30 10/30/23 17:42
Insulin Aspart Low Resistance 300 Units/3 Ml Pen.Injctr SC 11/27/23 07:29 2 units
AC MALINDA Administration
Protocol
Insulin Aspart Prota 70%/Aspart 30% 15 units 10/30/23 08:00 10/30/23 08:32
Novolog Mix 70/30 (100 Units/Ml) 3 Ml Flexpen SC 11/27/23 07:59 15 units
DAILY MALINDA Administration
Insulin Aspart Prota 70%/Aspart 30% 12 units 10/30/23 18:00 10/30/23 17:43
Novolog Mix 70/30 (100 Units/Ml) 3 Ml Flexpen SC 11/27/23 17:59 12 units
QPM MALINDA Administration
Labetalol HCl 10 mg 10/30/23 09:53
Labetalol Hcl 5 Mg/1 Ml (20 Mg/4 Ml) Injection IV 11/27/23 09:52
Q6HPRN PRN
Mantain SBP less than 160
Levalbuterol HCl 0.63 mg 10/30/23 02:25
Levalbuterol 0.63 Mg/3 Ml Ampul INH 11/27/23 02:24
R Q6HPRN PRN
shortness of breath/wheezing
Protocol
Loratadine 10 mg 10/30/23 08:00 10/30/23 08:31
Loratadine 10 Mg Tablet PO 11/27/23 07:59 10 mg
DAILY MALINDA Administration
Metoprolol Tartrate 100 mg 10/30/23 08:00 10/30/23 20:31
Metoprolol 100 Mg Regular Release Tablet PO 11/27/23 07:59 100 mg
BID MALINDA Administration
Pantoprazole Sodium 40 mg 10/30/23 18:00 10/30/23 17:45
Pantoprazole 40 Mg Delayed Release Tablet PO 11/27/23 17:59 40 mg
QPM MALINDA Administration
Prednisone 2.5 mg 10/30/23 02:25 10/30/23 03:39
Prednisone 2.5 Mg Tablet PO 11/27/23 02:24 2.5 mg
Q2D MALINDA Administration
Sodium Chloride 0 flush 10/30/23 03:00
Sodium Chloride 0.9% (Flush) Syringe IV 11/27/23 02:59
PER PROTOCOL MALINDA
[2023-10-31] MEDS: NSS 500 IV (08:33)
[2023-10-31] MEDS: FLUSH (NSS) 1 FLUSH IV (08:40)
[2023-10-31] MEDS: NOVOLOG FLEXPEN-LOW RESISTANCE 1 UNITS SC (08:42)
[2023-10-31] MEDS: FOLVITE 0.800000000000000044 MG PO (08:43)
[2023-10-31] MEDS: CLARITIN 10 MG PO (08:43)
[2023-10-31] MEDS: CYMBALTA DELAYED RELEASE 30 MG PO (08:43)
[2023-10-31] MEDS: CARDIZEM CD 240 MG PO (08:43)
[2023-10-31] MEDS: LOPRESSOR 100 MG PO ×2 (08:43→20:29)
[2023-10-31] MEDS: TIKOSYN 125 MCG PO ×2 (08:44→20:29)
[2023-10-31] MEDS: NOVOLOG MIX 70/30 FLEXPEN 15 UNITS SC (08:44)
[2023-10-31] MEDS: FEOSOL 325 MG PO (08:44)
[2023-10-31 08:46] LABS: Glucose - Point of Care 183 mg/dl (70-99)
--- NOTE | 2023-10-31 09:19 | W.PN.HOSP.TC ---
Addendum entered and electronically signed by Sindhu Guzman MD 10/31/23 16:45:
Updated son on the phone
Addendum entered and electronically signed by Sindhu Guzman MD 10/31/23 13:39:
# ICH is related to/associated with/exacerbated by Eliquis use.
# Paroxysmal atrial fibrillation
Original Note:
Today's Communication/Plan
-
see A/P
Assessment / Plan
Assessment / Plan
HPI: 82 yo woman with hx atrial fibrillation, CAD, DM presented to the ER for fatigue over past several days with CT Head showing small intraparenchymal hemorrhage in the right thalamus.
Brought in by son per her PCP recommendation.� She continues to feel fatigued but mildly improved.
CT HEAD:
Small intraparenchymal hemorrhage in the right thalamus. Mild atrophy
A/P:
# lethargic likely due to small intraparenchymal hemorrhage in the right thalamus.
# hemorrhagic stroke
repeat CTH with stable small acute right thalamic hemorrhage.
Pending MRI brain
Hold DRAWING TENDER Eliquis, resume when cleared by Neuro
Cont Atorvastatin, LDL at 42
A1c 7.0%
Appreciate Neurology and neurosurgery input.
PT recc acute rehab
# Acute hypoxic resp insufficiency
placed on 2L NC, wean as tolerated, pt not on home O2
CXR without acute disease
Pt denies to resp symptoms
# Atrial fib with RVR
Off Cardizem drip
Cont DRAWING TENDER Cardizem, Lopressor, Tikosyn
Hold DRAWING TENDER Eliquis
# Mild Leukocytosis likely stress reaction/ on steroids
Follow urine Cx
Chest x-ray without disease of the chest.
# Anemia of chronic disease
Hemoglobin 11.2
Ferrous sulfate continued
Continue to monitor
# FANTASMA on Chronic kidney disease stage III
Creatinine 1.1 -> 1.7
gentle IVF with NSS 500 cc
Follow UA/Cx
Continue to monitor SCr
# Inflammatory arthritis
Continue prednisone
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
# Coronary artery disease status post CABG
Continue statin
# Essential hypertension
# Type 2 diabetes
Insulin sliding scale
CHO diet
Cont Insulin 75/25 at decreased dose: 15 units daily (DRAWING TENDER 30 units), and 12 units HS (DRAWING TENDER 25 units HS)
# Hyperlipidemia
On statin
# Obesity
# Depression
Continue duloxetine
DVT ppx: SCD
DNR
Dispo: Acute rehab vs HH
DW RN
Anticipated Discharge: Within 24 hours
Subjective/Interval History
-
Date of Service: October 31, 2023
Objective Data
-
Labs:
Laboratory Results
10/31/23
04:49
WBC 12.4 H
Hgb 9.8 L
Hct 29.8 L
Plt Count 299
Sodium 136
Potassium 3.8
Chloride 101
Carbon Dioxide 22
BUN 47 H
Creatinine 1.7 H
Glucose 212 H
Calcium 9.4
Vital Signs:
Vital Signs
Temp Pulse Resp BP Pulse Ox
36.7 C 65 17 145/58 94
10/31/23 07:30 10/31/23 08:00 10/31/23 08:00 10/31/23 08:00 10/31/23 09:07
I&O
10/30/23 10/31/23 11/01/23
06:59 06:59 06:59
Intake Total 420 / 420 480 / 480
Balance 420 / 420 480 / 480
Review of Systems
-
All other systems: Reviewed and negative
Physical Exam
-
General: Well Developed, Well Nourished, No Apparent Distress, Comfortable and Conversant; Negative Respiratory Distress
HEENT: Normocephalic, Atraumatic, Nose Appears Normal and Ears Appear Normal; Negative Oxygen
Respiratory: Clear to Auscultation and Non Labored Respirations; Negative Accessory Resp Muscle Use
Cardiac: Regular Rhythm and S1/S2
GI: Soft, Nontender, Nondistended and Normal Bowel Sounds
Skin: Warm and Dry
Neuro: Awake, Alert and Nonfocal/Grossly Intact; Negative Slurred Speech or Facial Droop
Psych: Calm and Apparent Dementia
Data Reviewed
-
CT Scan: Report Reviewed by me
Labs: Labs Reviewed by me
[2023-10-31 09:36] LABS: Urine Albumin Trace (Neg - Trace); Urine Bilirubin Negative (Negative); Urine Character Very Cloudy (Clear); Urine Color Yellow; Urine Glucose Negative (Negative); Urine Ketone Negative (Negative); Urine Leukocyte 2+ (Negative); Urine Nitrite Positive (Negative); Urine Occult Blood Trace (Negative); Urine Urobilinogen Negative (Neg - 1+)
--- NOTE | 2023-10-31 10:08 | PN.CDI ---
CDI
- -
CDI:
Physician Documentation Request
Admit Date: 10/29/23 23:08
Dear Doctor Megan,
Clinical Indicators:
Patient admitted with hemorrhagic stroke.
Home medications include: Apixaban 5 mg tablet (Eliquis) 5 mg PO BID
10/29 Neuro consult: 'Right-sided basal ganglia intracranial hemorrhage occurring while on apixaban...'
10/29 PN, 'Hold Eliquis'
Please clarify if there is a relationship between the ICH and Eliquis use:
Yes, ICH is related to/associated with/exacerbated by Eliquis use.
No, ICH is not related to/associated with/exacerbated by Eliquis used but it is due to ___. (Please specify)
Unable to determine
Use of terms such as suspected, likely, concern for, or probable (associated with a specific diagnosis that is being evaluated, monitored, or treated as if it exists) are acceptable and can be coded in the inpatient setting, when documented at the
time of discharge.
Thank you,
MARY Shields RN
CDI Specialist
available via tiger text
Please use your independent medical judgment in providing your response.
--- NOTE | 2023-10-31 10:24 | PN.CDI ---
CDI
- -
CDI:
Physician Documentation Request
Admit Date: 10/29/23 23:08
Dear Doctor Megan,
Clinical Indicators:
Patient admitted with hemorrhagic stroke.
2/8 Normal sinus rhythm documented in vital signs.
2/8 PN, 'Atrial fib with RVR'
If possible, please provide further specificity regarding atrial fibrillation, such as:
Paroxysmal atrial fibrillation - terminates spontaneously or with intervention within 7 days of onset
Other - please specify
Unable to further specify
Use of terms such as suspected, likely, concern for, or probable (associated with a specific diagnosis that is being evaluated, monitored, or treated as if it exists) are acceptable and can be coded in the inpatient setting, when documented at the
time of discharge.
Thank you,
MARY Shields RN
CDI Specialist
available via tiger text
Please use your independent medical judgment in providing your response.
[2023-10-31 10:51] LABS: Urine Amorphous Seen; Urine Mucus Few
[2023-10-31 10:52] LABS: Urine Granular Cast 0-2 /LPF (0); Urine Squamous Cell >30 /LPF (Few)
[2023-10-31 10:53] LABS: Urine Red Blood Cell 0-2 /HPF (0-2)
[2023-10-31 10:56] LABS: Urine Bacteria Many (Negative); Urine White Cell 50-60 /HPF (0-5)
--- NOTE | 2023-10-31 10:58 | CM ---
Addendum entered by Adeline Acevedo RN 10/31/23 16:35:
Spoke with Amelia Pope; they are waiving the need for the PM&R Consult as patient has straight Medicare. She spoke with the patient's son who agreed to [facility]. [facility] can take her 11/03 if BP is stable and anticoagulation has been
restarted. T
Spoke with patient's son Manuel; he agrees with [facility] Friday or whenever medically ready. Son has started the process to secure a caregiver for his mother at home. He will take the lead on the d/c planning to help out his sister.
Plan [facility] 11/03 if medically ready.
Original Note:
Patient with Dx small intraparenchymal hemorrhage right thalamus, hemorrgagic stroke. MRI Brain pending. Room air. PT & OT recommend acute rehab. ST Eval; aphasia, recommends skilled service. Per nurse assessment; both oriented and
confused/forgetful at times. Physiatry Consult pending.
Spoke with Amelia Pope; patient is an appropriate referral for [facility]. She was made aware of Physiatry Consult.
Spoke with patient's daughter Sasha; daughter agrees to considering acute rehab for her mother and will speak with her brother in that regard. She was made aware that the scallop dredger will see her mother.
Plan follow up after Physiatry Eval.
--- NOTE | 2023-10-31 11:44 | PTOTSP ---
Speech/Language Therapy
SLUMS administered to screen cognitive linguistic skills. Patient scored 6/30 which is concerning for a significant cognitive impairment. Suspect her expressive aphasia may have negatively impacted overall score. However, signs concerning for
significant deficits with attention, memory, and executive function were noted during formal and informal tasks.
Continued speech/language therapy warranted at the acute care level to target expressive language, further assess reading comprehension, and cognitive linguistic skills (i.e., attention, memory, executive function). Therapy warranted after D/C from
acute care at this time.
[2023-10-31] MEDS: NOVOLOG FLEXPEN-LOW RESISTANCE 3 UNITS SC (12:54)
[2023-10-31 13:08] LABS: Glucose - Point of Care 281 mg/dl (70-99)
--- NOTE | 2023-10-31 15:09 | PTCARENOTE ---
Patient back from MRI of brain. Patient seems more confused from the morning. She can answer most questions appropriately but she forgets she is in the hospital. At times is hallucinating, seeing people on the roof. Vital signs stable.
Currently OOB to chair with chair alarm on. Will monitor frequently.
[2023-10-31] MEDS: ROCEPHIN 1000 MG IV (16:46)
[2023-10-31] MEDS: STERILE WATER FOR INJECTION 10 ML IV (16:47)
[2023-10-31] MEDS: LIPITOR 80 MG PO (16:50)
[2023-10-31] MEDS: XOPENEX 0.63 MG INHALANT SOLUTION 0.630000000000000004 MG INH (17:05)
[2023-10-31 18:10] LABS: Glucose - Point of Care 225 mg/dl (70-99)
--- NOTE | 2023-10-31 18:30 | PTCARENOTE ---
Patient received antibiotics this afternoon. IV fluids infusing as ordered. Patient confused. Pulling off pulse ox and BP cuff. INC of urine or can use commode with assistance x1. OOB to chair with alarm on. Vital signs continue to be stable.
Patient's son Manuel in room.
[2023-10-31] MEDS: PROTONIX 40 MG PO (18:40)
[2023-10-31] MEDS: NOVOLOG MIX 70/30 FLEXPEN 12 UNITS SC (18:40)
[2023-10-31] MEDS: NOVOLOG FLEXPEN-LOW RESISTANCE 2 UNITS SC (18:41)
[2023-10-31] MEDS: TYLENOL 650 MG PO (20:28)
[2023-10-31 22:20] LABS: Glucose - Point of Care 116 mg/dl (70-99)
[2023-11-01] VITALS (13 sets, daily range): BP systolic 104–173; BP diastolic 51–102; PULSE 61; BMI 35.2
--- NOTE | 2023-11-01 02:07 | PTCARENOTE ---
nih is 1 for aphasia- moves all extremities, follows commands but is confused and agitated at times. sinus bp wnl afebrile. inc of urine- wearing attends.
[2023-11-01] MEDS: DELTASONE 2.5 MG PO (03:19)
--- NOTE | 2023-11-01 03:56 | PTCARENOTE ---
a-paced . pt finally sleeping after long night of anxiety and confusion. bp wnl afebrile
[2023-11-01 05:32] LABS: Hematocrit 28.1 % (37.0-47.0); Hemoglobin 9.3 g/dL (12.0-16.0); Mean Corp Hgb Conc. 33.1 g/dL (33.0-37.0); Mean Corpuscular Hgb 29.3 pg (27.0-31.0); Mean Corpuscular Volume 88.6 fL (81.0-99.0); Mean Platelet Volume 11.3 fL (7.4-10.4); Platelet Count 272 10^3/uL (130-400); Red Blood Cell Count 3.17 10^6/uL (4.20-5.40); Red Cell Dist. Width 14.4 % (11.5-14.5); White Blood Cell Count 9.8 10^3/uL (4.8-10.8)
[2023-11-01 05:51] LABS: Blood Urea Nitrogen 32 mg/dl (7-17); Calcium 9.2 mg/dl (8.4-10.2); Carbon Dioxide 22 mmol/L (22-30); Chloride 110 mmol/L (98-107); Estimated Creatinine Clearance 39 ml/min; Glucose 135 mg/dl (70-99); Potassium 4.2 mmol/L (3.5-5.1); Sodium 137 mmol/L (135-145); eGFR 50.48
--- NOTE | 2023-11-01 08:25 | W.PN.HOSP.TC ---
Today's Communication/Plan
-
see A/P
Assessment / Plan
Assessment / Plan
HPI: 82 yo woman with hx atrial fibrillation, CAD, DM presented to the ER for fatigue over past several days with CT Head showing small intraparenchymal hemorrhage in the right thalamus.
Brought in by son per her PCP recommendation.� She continues to feel fatigued but mildly improved.
CT HEAD:
Small intraparenchymal hemorrhage in the right thalamus. Mild atrophy
A/P:
# lethargic likely due to small intraparenchymal hemorrhage in the right thalamus.
# hemorrhagic stroke
repeat CTH with stable small acute right thalamic hemorrhage.
MRI brain with corresponding signal abnormality in the right thalamus as seen on CT head
Ok to restart CARRIAGE RIDER Eliquis per neuro
Cont Atorvastatin, LDL at 42
A1c 7.0%
Appreciate Neurology and neurosurgery input.
PT recc acute rehab
# Acute hypoxic resp insufficiency, resolved
weaned to RA
Pt denies to resp symptoms
CXR without acute disease
# Atrial fib with RVR
Off Cardizem drip
Cont CARRIAGE RIDER Cardizem, Lopressor, Tikosyn
resume CARRIAGE RIDER Eliquis
# Mild Leukocytosis likely stress reaction/ on steroids, resolved
Chest x-ray without disease of the chest.
Follow urine Cx
Started empiric ceftriaxone
# Anemia of chronic disease
Hemoglobin 11.2
Ferrous sulfate continued
Continue to monitor
# FANTASMA on Chronic kidney disease stage III
Creatinine 1.7 -> 1.1
Follow urine Cx
Started empiric ceftriaxone
# Inflammatory arthritis
Continue prednisone
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
# Coronary artery disease status post CABG
Continue statin
# Essential hypertension
# Type 2 diabetes
Insulin sliding scale
CHO diet
Cont Insulin 75/25 at decreased dose: 15 units daily (CARRIAGE RIDER 30 units), and 12 units HS (CARRIAGE RIDER 25 units HS)
# Hyperlipidemia
On statin
# Obesity
# Depression
Continue duloxetine
DVT ppx: resume CARRIAGE RIDER Eliquis
DNR
Dispo: Acute rehab
DW RN
Anticipated Discharge: 24 - 48 hours
Subjective/Interval History
-
Date of Service: November 01, 2023
Objective Data
-
Labs:
Laboratory Results
11/01/23
04:22
WBC 9.8
Hgb 9.3 L
Hct 28.1 L
Plt Count 272
Sodium 137
Potassium 4.2
Chloride 110 H
Carbon Dioxide 22
BUN 32 H
Creatinine 1.1 H
Glucose 135 H
Calcium 9.2
Vital Signs:
Vital Signs
Temp Pulse Resp BP Pulse Ox
36.6 C 70 23 129/87 99
11/01/23 07:21 11/01/23 06:00 11/01/23 06:00 11/01/23 06:00 10/31/23 21:35
I&O
10/31/23 11/01/23 11/02/23
06:59 06:59 06:59
Intake Total 480 / 480 2200 / 2200
Output Total 360 / 360
Balance 480 / 480 1840 / 1840
Review of Systems
-
Unable to obtain full review of systems at this time due to: Acuity
Physical Exam
-
General: Well Developed, Well Nourished, No Apparent Distress, Comfortable and Conversant; Negative Respiratory Distress
HEENT: Normocephalic, Atraumatic, Nose Appears Normal and Ears Appear Normal; Negative Oxygen
Respiratory: Clear to Auscultation and Non Labored Respirations; Negative Accessory Resp Muscle Use
Cardiac: Regular Rhythm and S1/S2
GI: Soft, Nontender, Nondistended and Normal Bowel Sounds
Skin: Warm and Dry
Neuro: Awake, Alert and Nonfocal/Grossly Intact; Negative Slurred Speech or Facial Droop
Psych: Calm and Apparent Dementia
Data Reviewed
-
CT Scan: Report Reviewed by me
MRI: Report Reviewed by me
Labs: Labs Reviewed by me
[2023-11-01 08:37] LABS: Glucose - Point of Care 152 mg/dl (70-99)
[2023-11-01] MEDS: NOVOLOG FLEXPEN-LOW RESISTANCE 1 UNITS SC ×2 (09:46→13:00)
[2023-11-01] MEDS: TIKOSYN 125 MCG PO (09:49)
[2023-11-01] MEDS: FEOSOL 325 MG PO (09:49)
[2023-11-01] MEDS: LOPRESSOR 100 MG PO (09:49)
[2023-11-01] MEDS: CYMBALTA DELAYED RELEASE 30 MG PO (09:49)
[2023-11-01] MEDS: CARDIZEM CD 240 MG PO (09:49)
[2023-11-01] MEDS: FOLVITE 0.800000000000000044 MG PO (09:49)
[2023-11-01] MEDS: CLARITIN 10 MG PO (09:49)
[2023-11-01] MEDS: NOVOLOG MIX 70/30 FLEXPEN 15 UNITS SC (09:50)
--- NOTE | 2023-11-01 12:52 | PTCARENOTE ---
Received from nightshift RN. It was reported to me that pt was hallucinating all night. Pt initially confused and drowsy but able to awaken and answer questions/ follow commands without issue. Starting closer to noon, pt became more restless and
paranoid. NIHSS: 1 for aphasia. NSR on tele with BBB, long QT, also has a A paced spikes. 94% on RA, exp wheeze at times. Incontinent of urine. Poor appetite but was able to take pills crushed in applesauce. Skin is intact.
[2023-11-01 13:01] LABS: Glucose - Point of Care 179 mg/dl (70-99)
[2023-11-01] MEDS: XOPENEX 0.63 MG INHALANT SOLUTION 0.630000000000000004 MG INH (14:31)
--- NOTE | 2023-11-01 15:04 | PTCARENOTE ---
right hand +2 edema post med administration for infiltrate to piv on 10/31. attempted to place midline without ability to access vein. pt with piv in right arm. pt resting, primary RN aware
[2023-11-01] MEDS: STERILE WATER FOR INJECTION 10 ML IV (15:55)
[2023-11-01] MEDS: ROCEPHIN 1000 MG IV (15:55)
[2023-11-01 16:57] LABS: Glucose - Point of Care 137 mg/dl (70-99)
[2023-11-01] MEDS: NOVOLOG FLEXPEN-LOW RESISTANCE SC (17:01)
[2023-11-01] MEDS: LIPITOR 80 MG PO (17:38)
[2023-11-01] MEDS: PROTONIX 40 MG PO (17:38)
--- NOTE | 2023-11-01 19:52 | PTCARENOTE ---
Patient easily arousable, falls asleep frequently, then becomes agitated when woken. Able to follow commands for short periods of time, refusing dinner and fluids at this time. Able to turn herself in bed, HOB elevated, patient refused mouth care.
[2023-11-01] MEDS: LOPRESSOR PO (21:12)
[2023-11-01] MEDS: TIKOSYN PO (21:12)
[2023-11-01] MEDS: ELIQUIS PO (21:12)
--- NOTE | 2023-11-01 21:19 | PTCARENOTE ---
Patient with increased agitation/confusion violent, aggressive/agitated trying to bit and hit staff when given incontinence care. Provider notified change in mental status.
[2023-11-01 21:46] LABS: Glucose - Point of Care 152 mg/dl (70-99)
[2023-11-02] VITALS (12 sets, daily range): BP systolic 96–154; BP diastolic 47–99; PULSE 61; BMI 35.3
[2023-11-02] MEDS: NOVOLOG MIX 70/30 FLEXPEN SC
[2023-11-02] MEDS: ELIQUIS 5 MG PO ×3 (00:51→19:41)
--- NOTE | 2023-11-02 00:57 | PTCARENOTE ---
Patient is awake and alert, compliant with mouth care and pericare and took a sip of juice.
[2023-11-02 03:41] LABS: Hematocrit 32.1 % (37.0-47.0); Mean Corp Hgb Conc. 31.2 g/dL (33.0-37.0); Mean Platelet Volume 11.1 fL (7.4-10.4); Platelet Count 278 10^3/uL (130-400); Red Blood Cell Count 3.45 10^6/uL (4.20-5.40); Red Cell Dist. Width 14.4 % (11.5-14.5)
[2023-11-02 04:07] LABS: Blood Urea Nitrogen 21 mg/dl (7-17); Calcium 9.6 mg/dl (8.4-10.2); Carbon Dioxide 25 mmol/L (22-30); Chloride 110 mmol/L (98-107); Estimated Creatinine Clearance 48 ml/min; Glucose 172 mg/dl (70-99); Potassium 4.4 mmol/L (3.5-5.1); Sodium 139 mmol/L (135-145); eGFR > 60.00
[2023-11-02] MEDS: LOPRESSOR 100 MG PO ×2 (08:33→19:40)
[2023-11-02] MEDS: FOLVITE 0.800000000000000044 MG PO (08:33)
[2023-11-02] MEDS: FEOSOL 325 MG PO (08:33)
[2023-11-02] MEDS: CARDIZEM CD 240 MG PO (08:33)
[2023-11-02] MEDS: CYMBALTA DELAYED RELEASE 30 MG PO (08:33)
[2023-11-02] MEDS: CLARITIN 10 MG PO (08:33)
[2023-11-02] MEDS: TIKOSYN 125 MCG PO ×2 (08:33→19:41)
--- NOTE | 2023-11-02 08:57 | W.PN.HOSP.TC ---
Today's Communication/Plan
-
see A/P
Assessment / Plan
Assessment / Plan
HPI: 82 yo woman with hx atrial fibrillation, CAD, DM presented to the ER for fatigue over past several days with CT Head showing small intraparenchymal hemorrhage in the right thalamus.
Brought in by son per her PCP recommendation.� She continues to feel fatigued but mildly improved.
CT HEAD:
Small intraparenchymal hemorrhage in the right thalamus. Mild atrophy
A/P:
# lethargy likely due to small intraparenchymal hemorrhage in the right thalamus.
# hemorrhagic stroke
repeat CTH with stable small acute right thalamic hemorrhage.
MRI brain with corresponding signal abnormality in the right thalamus as seen on CT head
Ok to restart COLOR CHECKER ROVING OR YARN Eliquis per neuro
Cont Atorvastatin, LDL at 42
A1c 7.0%
Appreciate Neurology and neurosurgery input.
PT recc acute rehab
# Acute metabolic encephalopathy, due to acute stroke vs UTI
Monitor MS
urine Cx with E coli and Klebsiella
Will change ceftriaxone to Levaquin
# Acute hypoxic resp insufficiency
weaned to RA
Pt denies to resp symptoms
CXR without acute disease
Noted wheezing on exam, start prednisone 40 mg daily x5 days
# Atrial fib with RVR
Off Cardizem drip
Cont COLOR CHECKER ROVING OR YARN Cardizem, Lopressor, Tikosyn
resume COLOR CHECKER ROVING OR YARN Eliquis
# Anemia of chronic disease
Hemoglobin 11.2
Ferrous sulfate continued
Continue to monitor
# FANTASMA , resolved
Creatinine 1.7 -> ... 0.9
# Inflammatory arthritis
Continue prednisone
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
# Coronary artery disease status post CABG
Continue statin
# Essential hypertension
# Type 2 diabetes
Insulin sliding scale
CHO diet
Cont Insulin 75/25 at decreased dose: 15 units daily (COLOR CHECKER ROVING OR YARN 30 units), and 12 units HS (COLOR CHECKER ROVING OR YARN 25 units HS)
# Hyperlipidemia
On statin
# Obesity
# Depression
Continue duloxetine
DVT ppx: resume COLOR CHECKER ROVING OR YARN Eliquis
DNR
Dispo: Acute rehab
DW RN
DW son on the phone
Anticipated Discharge: Within 24 hours
Subjective/Interval History
-
Date of Service: November 02, 2023
Objective Data
-
Labs:
Laboratory Results
11/02/23
02:58
WBC 10.0
Hgb 10.0 L
Hct 32.1 L
Plt Count 278
Sodium 139
Potassium 4.4
Chloride 110 H
Carbon Dioxide 25
BUN 21 H
Creatinine 0.9
Glucose 172 H
Calcium 9.6
Vital Signs:
Vital Signs
Temp Pulse Resp BP Pulse Ox
37.1 C 67 21 154/68 100
11/02/23 03:05 11/02/23 08:33 11/02/23 06:29 11/02/23 08:33 11/02/23 06:29
I&O
11/01/23 11/02/23 11/03/23
06:59 06:59 06:59
Intake Total 2200 / 2200
Output Total 360 / 360
Balance 1840 / 1840
Review of Systems
-
All other systems: Reviewed and negative
Physical Exam
-
General: Well Developed, Well Nourished, No Apparent Distress, Comfortable and Conversant; Negative Respiratory Distress
HEENT: Normocephalic, Atraumatic, Nose Appears Normal and Ears Appear Normal; Negative Oxygen
Respiratory: Clear to Auscultation, Wheezes and Non Labored Respirations; Negative Accessory Resp Muscle Use
Cardiac: Regular Rhythm and S1/S2
GI: Soft, Nontender, Nondistended and Normal Bowel Sounds
Skin: Warm and Dry
Neuro: Awake, Alert and Nonfocal/Grossly Intact; Negative Slurred Speech or Facial Droop
Psych: Calm and Apparent Dementia
Data Reviewed
-
CT Scan: Report Reviewed by me
MRI: Report Reviewed by me
Labs: Labs Reviewed by me
[2023-11-02] MEDS: XOPENEX 0.63 MG INHALANT SOLUTION 0.630000000000000004 MG INH ×2 (09:17→16:01)
[2023-11-02 09:44] LABS: Glucose - Point of Care 150 mg/dl (70-99)
[2023-11-02] MEDS: NOVOLOG FLEXPEN-LOW RESISTANCE 1 UNITS SC (10:22)
[2023-11-02] MEDS: LEVAQUIN 150 IV (10:22)
[2023-11-02] MEDS: NOVOLOG MIX 70/30 FLEXPEN 15 UNITS SC (10:23)
[2023-11-02] MEDS: DELTASONE 40 MG PO (10:28)
--- NOTE | 2023-11-02 10:51 | PTCARENOTE ---
Pt much more awake this morning. Responding appropriately, Ox3 with some confusion and forgetfulness. NIHSS: 1. Pt complains of some shortness of breath, also has an audible exp wheeze. Xopenex tx given, started on PO steroids. Much better
appetite today, pt ate 80% of her breakfast. IV site intact, Levaquin now infusing. Call sykes within reach, pt makes needs known.
[2023-11-02] MEDS: NOVOLOG FLEXPEN-LOW RESISTANCE 2 UNITS SC (12:56)
[2023-11-02 13:06] LABS: Glucose - Point of Care 238 mg/dl (70-99)
[2023-11-02] MEDS: NOVOLOG FLEXPEN-LOW RESISTANCE 5 UNITS SC (17:28)
[2023-11-02] MEDS: LIPITOR 80 MG PO (17:28)
[2023-11-02] MEDS: PROTONIX 40 MG PO (17:28)
[2023-11-02] MEDS: NOVOLOG MIX 70/30 FLEXPEN 12 UNITS SC (17:29)
[2023-11-02 17:38] LABS: Glucose - Point of Care 369 mg/dl (70-99)
[2023-11-02 22:54] LABS: Glucose - Point of Care 306 mg/dl (70-99)
[2023-11-03] VITALS (14 sets, daily range): BP systolic 100–156; BP diastolic 45–138; PULSE 60; O2SAT 98
--- NOTE | 2023-11-03 00:13 | PTCARENOTE ---
Patient alert and cooperative, unable to stay asleep. Assist to bathroom, patient was able to perform ADLS with standby assist.
[2023-11-03 05:13] LABS: Hematocrit 30.9 % (37.0-47.0); Hemoglobin 9.7 g/dL (12.0-16.0); Mean Corp Hgb Conc. 31.4 g/dL (33.0-37.0); Mean Corpuscular Hgb 28.7 pg (27.0-31.0); Mean Corpuscular Volume 91.4 fL (81.0-99.0); Platelet Count 321 10^3/uL (130-400); Red Blood Cell Count 3.38 10^6/uL (4.20-5.40); Red Cell Dist. Width 14.3 % (11.5-14.5); White Blood Cell Count 13.1 10^3/uL (4.8-10.8)
[2023-11-03 05:34] LABS: Blood Urea Nitrogen 30 mg/dl (7-17); Carbon Dioxide 19 mmol/L (22-30); Chloride 105 mmol/L (98-107); Estimated Creatinine Clearance 44 ml/min; Glucose 283 mg/dl (70-99); Potassium 4.4 mmol/L (3.5-5.1); Sodium 137 mmol/L (135-145)
--- NOTE | 2023-11-03 08:22 | W.PN.HOSP.TC ---
Today's Communication/Plan
-
Anticipated discharge after better blood pressure control
Maintain SBP less than 140 mmHg
Assessment / Plan
Assessment / Plan
Physical Exam
General: Well Developed, Well Nourished, No Apparent Distress, Comfortable and Conversant; Negative Respiratory Distress
HEENT: Normocephalic, Atraumatic, Nose Appears Normal and Ears Appear Normal; Negative Oxygen
Respiratory: Clear to Auscultation, Wheezes and Non Labored Respirations; Negative Accessory Resp Muscle Use
Cardiac: Regular Rhythm and S1/S2
GI: Soft, Nontender, Nondistended and Normal Bowel Sounds
Skin: Warm and Dry
Neuro: Awake, Alert and Nonfocal/Grossly Intact; Negative Slurred Speech or Facial Droop
Psych: Calm and Apparent Dementia
Assessment/Plan
HPI: 82 yo woman with hx atrial fibrillation, CAD, DM presented to the ER for fatigue over past several days with CT Head showing small intraparenchymal hemorrhage in the right thalamus.
Brought in by son per her PCP recommendation.� She continues to feel fatigued but mildly improved.
CT HEAD:
Small intraparenchymal hemorrhage in the right thalamus. Mild atrophy
A/P:
# lethargy likely due to small intraparenchymal hemorrhage in the right thalamus.
# hemorrhagic stroke with small bleed in the right thalamus
# Concern for mild dementia
repeat CTH with stable small acute right thalamic hemorrhage.
MRI brain with corresponding signal abnormality in the right thalamus as seen on CT head
Okay to continue FRETTED INSTRUMENT MAKER HAND Eliquis per neuro
Cont Atorvastatin, LDL at 42
A1c 7.0%
Appreciate Neurology and neurosurgery input.
Maintain SBP less than 140 mmHg: added Losartan 25 mg daily on 11/03/23 to existing antihypertensive regimen
PT recc acute rehab
# Acute metabolic encephalopathy, due to acute stroke vs UTI
# Concern for Mild Dementia
Monitor MS
urine Cx with E coli and Klebsiella
Status post Ceftriaxone
Status post Levaquin
Consulted ID, recommendations appreciated, due to resistance pattern of organisms above as well as for best option given patient is on Tikosyn: Macrobid 100 mg BID x 7 days started as per ID
# Acute hypoxic resp insufficiency
weaned to RA
Pt denies to resp symptoms
CXR without acute disease
Noted wheezing on exam, start prednisone 40 mg daily x5 days (11/02/23 was Day 1)
# Atrial fib with RVR
Off Cardizem drip
Cont FRETTED INSTRUMENT MAKER HAND Cardizem, Lopressor, Tikosyn
ContinuePTA Eliquis
# Anemia of chronic disease
Ferrous sulfate continued
Continue to monitor
# FANTASMA , resolved
Creatinine 1.7 -> ... 0.9--->1.0
# Inflammatory arthritis
Continue prednisone
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
# Coronary artery disease status post CABG
Continue statin
# Essential hypertension
# Type 2 diabetes
# Hyperglycemia
Insulin sliding scale
CHO diet
Insulin 75/25 at 15 units daily (FRETTED INSTRUMENT MAKER HAND 30 units), and 12 units HS (FRETTED INSTRUMENT MAKER HAND 25 units HS)
Consulted Diabetes RESERVATIONS AND TICKETING AGENT, recommendations appreciated: Insulin titrated up
# Hyperlipidemia
On statin
# Obesity
# Depression
Continue duloxetine
DVT ppx: resume FRETTED INSTRUMENT MAKER HAND Eliquis
DNR
Dispo: Acute rehab
Anticipated Discharge: Within 24 hours
Subjective/Interval History
-
Date of Service: November 03, 2023
Patient was seen and examined. She reported doing okay, denied any new complaints. Patient's nurse reported that patient displayed some hallucinations and still has some degree of confusion.
Objective Data
-
Labs:
Laboratory Results
11/03/23
04:54
WBC 13.1 H
Hgb 9.7 L
Hct 30.9 L
Plt Count 321
Sodium 137
Potassium 4.4
Chloride 105
Carbon Dioxide 19 L
BUN 30 H
Creatinine 1.0
Glucose 283 H
Calcium 10.0
Vital Signs:
Vital Signs
Temp Pulse Resp BP Pulse Ox
99.2 F 62 15 120/54 99
11/03/23 03:45 11/03/23 06:00 11/03/23 06:00 11/03/23 06:00 11/03/23 04:49
I&O
11/02/23 11/03/23 11/04/23
06:59 06:59 06:59
Intake Total 960 / 960
Balance 960 / 960
[2023-11-03 08:39] LABS: Glucose - Point of Care 237 mg/dl (70-99)
--- NOTE | 2023-11-03 08:56 | PN.DE.MGMTRT ---
Insulin Management
- -
11/03/2023: Diabetes Management Consult
82 year old female admitted on 10/30/23 for a small intraparenchymal hemorrhage in the right thalamus.
PMH includes: HTN, A-Fib, CAD and T2DM, current A1C 7.0%, improved from 7.9% on .
Pt was taking Humalog 75/25 mix, 30units in AM and 25 units in PM.
Pt developed acute hypoxic Resp insufficiency on 11/02 and was started on oral steroids- Pred 40mg daily-->Hyperglycemia.
Current Insulin regimen includes: 70/30 BID, 15 units in AM and 12 units in PM.
Glucose has remained elevated, FBG 283 this AM, Premeal 150-369, requiring 1-5 units of additional corrective insulin.
Pt has received 15 units of her AM dose, will give additional 10 units NOW and increase AM dose to 25 units.
Increase PM dose to 20 units. Will closely follow and adjust insulin regimen as necessary
Diabetes History
- -
Type of Diabetes: 2
Pre-Admission Diabetes Regimen
11/03/23
04:54
Creatinine 1.0
Lab Results
Hemoglobin A1c 7.0 % (4.0-5.6) H 10/30/23 03:52
Insulin Pump Settings
IP Diabetes Regimen
11/02/23 11/02/23 11/02/23
09:33 12:55 17:27
Glucose
POC Glucose 150 H 238 H 369 H
11/02/23 11/03/23 11/03/23
22:43 04:54 08:28
Glucose 283 H
POC Glucose 306 H 237 H
Meal type: Dinner
Meal type: Breakfast
Amount consumed: 100%
Amount consumed: 80%
Patient Education
[2023-11-03] MEDS: NOVOLOG FLEXPEN-LOW RESISTANCE 2 UNITS SC (09:12)
[2023-11-03] MEDS: ELIQUIS 5 MG PO ×2 (09:14→20:23)
[2023-11-03] MEDS: FOLVITE 0.800000000000000044 MG PO (09:15)
[2023-11-03] MEDS: DELTASONE 40 MG PO (09:15)
[2023-11-03] MEDS: FEOSOL 325 MG PO (09:16)
[2023-11-03] MEDS: CLARITIN 10 MG PO (09:16)
[2023-11-03] MEDS: CYMBALTA DELAYED RELEASE 30 MG PO (09:17)
[2023-11-03] MEDS: TIKOSYN 125 MCG PO ×2 (09:17→20:21)
[2023-11-03] MEDS: LOPRESSOR 100 MG PO ×2 (09:17→20:22)
[2023-11-03] MEDS: NOVOLOG MIX 70/30 FLEXPEN 15 UNITS SC (09:18)
[2023-11-03] MEDS: CARDIZEM CD 240 MG PO (09:29)
[2023-11-03] MEDS: NOVOLOG MIX 70/30 FLEXPEN 10 UNITS SC (10:46)
[2023-11-03] MEDS: NOVOLOG FLEXPEN-LOW RESISTANCE 4 UNITS SC (12:46)
[2023-11-03] MEDS: COZAAR 25 MG PO (12:48)
[2023-11-03 12:57] LABS: Glucose - Point of Care 314 mg/dl (70-99)
--- NOTE | 2023-11-03 15:38 | PTCARENOTE ---
Patient has some mild expressive aphagia. She is alert and oriented with some intermittent confusion/hallucinations. This morning she had oriented conversation with the RN and then said that her hospital room got repainted this AM. Patient
ambulated to BR with walker and assistance x1. She had a BM and urinated. She also is INC of urine with pull ups from home. Vital signs stable. Appetite good.
--- NOTE | 2023-11-03 16:22 | CON.ID ---
Consultation
-
Date/Time Consultation Requested: 11/03/2023 1151
Date/Time Consultation Performed: 11/03/2023 1552
Requesting Provider: Dr. Anna
Performing Provider: Dr. Nguyễn
Reason for Consultation: Complicated urinary tract infection
Chief Complaint / Past History
History of Present Illness
Sherice Fontaine is an 82-year-old female being evaluated at the request of Dr. Anna regarding a complicated urinary tract infection. History is obtained from chart review, along with patient interview. The patient has a significant past
medical history of atrial fibrillation, CAD and DM and presented to [facility] on 10/29 secondary to generalized weakness. At that point in time she had reported that she was not out of bed for the prior 2 days secondary to fatigue and
generalized weakness. She denies any dysuria. She denied any pharyngitis or cough. No reported dysuria.
Workup in the ER included CT imaging of the brain which revealed a small intraparenchymal hemorrhage in the right thalamus along with mild atrophy. She was admitted to the IMU with neurochecks.
At present, she reports that she continues to feel tired, although it is somewhat improved. She denies any recent fevers or chills. She does report some dysuria at present, although no blood. She denies any flank or back pain.
She is currently on day #3 of antibiotics (ceftriaxone, then levofloxacin). Current cultures revealed growth of Klebsiella aerogenes and E. coli.
Past History
Additional Past Medical History:
HTN
CAD
Chronic vertigo
Hx CVA
Asthma
CHF
Dyslipidemia
Hx UTIs
DM
CKD
Additional Past Surgical History:
CABG (four-vessel)
Bilateral knee replacement
Hysterectomy
Right shoulder surgery
PPM placement
Allergy History:
Cephalosporins Allergy (Verified 10/29/23 19:12)
SOB from ?med vs afib/RVR. Tolerated rocephin 11/01/2023
doxycycline Allergy (Verified 10/29/23 19:12)
Shortness of Breath
mold Allergy (Verified 10/29/23 19:12)
throat swells;difficulty breathing
Penicillins Allergy (Verified 10/29/23 19:12)
hives;difficulty breathing;
perfume Allergy (Verified 10/29/23 19:12)
SOB/DIFFICULTY BREATHING
Medications Reviewed: Yes
Current Antibiotics:
None
Levaquin 211 x1
Rocephin 10/31 - 11/01
Social History
Tobacco: Non-Smoker
Alcohol: None
Drug: None
Living: With Family
Family History
Family History: Not Pertinent
Review of Systems
Vital Signs
Temp Pulse Resp BP Pulse Ox
99.2 F 60 16 156/79 95
11/03/23 03:45 11/03/23 12:00 11/03/23 12:00 11/03/23 12:00 11/03/23 12:16
Physical Exam
Physical Exam
Constitutional: No Acute Distress, Comfortable, Chronically Ill and Non-toxic
Eyes: Pupils Equal, Pupils Round, No Conjunctival Hemorrhage and Sclera Anicteric
Oral: No Thrush and No Ulcers
Cardiovascular: Regular Rate and S1/S2; Negative S3/S4
Pulmonary: Clear and Non Labored; Negative Wheezes, Rales or Rhonchi
Gastrointestinal: Soft, Non Tender, Non Distended, Normal Bowel Sounds, No Rebound and No Guarding
Genito-Urinary: Negative Valenzuela
Extremities: Negative Edema, Cyanosis, Erythema, Splinter Hemorrhage or Janeway Lesions
Musculoskeletal: Negative Joint Swelling or Joint Effusion
Skin: Warm and Dry; Negative Rash or Jaundice
Neurological: Awake and Alert
Psychological: Calm
Lab / Diagnostic Study Results
11/03/23 04:54
11/03/23 04:54
Abs Immat Gran (auto) 0.1 10^3/uL (0-0.05) H 10/29/23 19:29
Absolute Neuts (auto) 11.4 10^3/uL (1.4-6.5) H 10/29/23 19:29
Absolute Lymphs (auto) 1.1 10^3/uL (1.2-3.4) L 10/29/23 19:29
Absolute Monos (auto) 0.9 10^3/uL (0.1-0.6) H 10/29/23 19:
Absolute Basos (auto) 0.1 10^3/uL (0-0.2) 10/29/23 19:
Immature Gran % 0.6 % (0-0.5) H 10/29/23 19:29
Neutrophils % 83.5 % (42.2-75.2) H 10/29/23 19:
Lymphocytes % 8.0 % (20.5-51.1) L 10/29/23 19:29
Monocytes % 6.5 % (1.7-9.3) 10/29/23 19:
Eosinophils % 1.0 % (0-6) 10/29/23:
Basophils % 0.4 % (0-2) 10/29/23 19:
Ur Squamous Epith Cells >30 /LPF (Few) 10/31/23 09:17
Microbiology Results
Micro:
10/31/23 09:17 Urine Culture - Final
Urine Escherichia coli
Klebsiella aerogenes
Imaging:
10/31/2023 MRI brain: Small focus of signal abnormality with susceptibility blooming within the right thalamus compatible with a small acute hemorrhage involving the right thalamus. Moderate diffuse atrophy noted. Mild periventricular leukomalacia
Assessment / Plan
Complicated urinary tract infection
- Cultures with E. coli and Klebsiella aerogenes
Leukocytosis
- Suspect steroid effect
HTN
CAD
Chronic vertigo
Hx CVA
Asthma
CHF
Dyslipidemia
Hx UTIs
DM
CKD
Recommendations:
Therapy somewhat complicated secondary to patient's allergy list which includes PCN, doxycycline and cephalosporins (although patient did tolerate 2 doses of ceftriaxone this admission which calls into question that particular allergy)
Additionally fluoroquinolones may interact with Tikosyn causing QTc prolongation. Current QTc = 506 ms
Will begin Macrobid 100 mg p.o. twice daily for 7 days.
Patient should have follow-up urinalysis and urine culture approximately 2 weeks following the completion of her antibiotic therapy.
--- NOTE | 2023-11-03 17:14 | PTCARENOTE ---
Stroke packet given to patient.
--- NOTE | 2023-11-03 17:19 | CM ---
Patient with Dx small intraparenchymal hemorrhage right thalamus, hemorrhagic stroke, Concern for mild dementia, NATHALY, rapid Afib, UTI. Room air. PT & OT recommend acute rehab. Per nurse notes; A/O with some intermittent confusion/hallucinations.
Message from Dr Anna; not ready for d/c to [facility] as patient's BP is still too high and she needs to have antibiotics adjusted.
Spoke with [facility]; not ready for d/c to [facility] today. The for report [phone], fax [phone].
Plan [facility] when medically ready.
[2023-11-03] MEDS: NOVOLOG FLEXPEN-LOW RESISTANCE 5 UNITS SC (17:21)
[2023-11-03] MEDS: PROTONIX 40 MG PO (17:23)
[2023-11-03] MEDS: NOVOLOG MIX 70/30 FLEXPEN 20 UNITS SC (17:23)
[2023-11-03] MEDS: LIPITOR 80 MG PO (17:23)
[2023-11-03 17:38] LABS: Glucose - Point of Care 381 mg/dl (70-99)
[2023-11-03] MEDS: MACROBID 100 MG PO (20:21)
[2023-11-03 22:13] LABS: Glucose - Point of Care 389 mg/dl (70-99)
[2023-11-03] MEDS: NOVOLOG FLEXPEN 10 UNITS SC (23:35)
[2023-11-04] VITALS (9 sets, daily range): BP systolic 108–168; BP diastolic 53–101; PULSE 68; BMI 35.7
[2023-11-04 03:00] LABS: Glucose - Point of Care 254 mg/dl (70-99)
[2023-11-04 05:09] LABS: % Basophils 0.1 % (0-2); % Eosinophils 0.1 % (0-6); % Immature Granulocytes 1.5 % (0-0.5); % Lymphocytes 8.4 % (20.5-51.1); % Monocytes 5.7 % (1.7-9.3); % Neutrophils 84.2 % (42.2-75.2); Absolute Immature Granulocytes 0.2 10^3/uL (0-0.05); Absolute Lymphocytes 1.1 10^3/uL (1.2-3.4); Absolute Monocytes 0.7 10^3/uL (0.1-0.6); Hematocrit 30.5 % (37.0-47.0); Hemoglobin 9.8 g/dL (12.0-16.0); Mean Corp Hgb Conc. 32.1 g/dL (33.0-37.0); Mean Corpuscular Hgb 29.3 pg (27.0-31.0); Mean Platelet Volume 11.1 fL (7.4-10.4); Nucleated Red Blood Cells % 0 %; Platelet Count 263 10^3/uL (130-400); Red Blood Cell Count 3.35 10^6/uL (4.20-5.40); Red Cell Dist. Width 14.4 % (11.5-14.5)
[2023-11-04 05:41] LABS: ALT (SGPT) 28 U/L (0-35); AST (SGOT) 36 U/L (14-36); Albumin 3.2 g/dl (3.5-5.0); Alkaline Phosphatase 67 U/L (38-126); Blood Urea Nitrogen 40 mg/dl (7-17); Calcium 9.7 mg/dl (8.4-10.2); Carbon Dioxide 21 mmol/L (22-30); Chloride 110 mmol/L (98-107); Estimated Creatinine Clearance 37 ml/min; Glucose 239 mg/dl (70-99); Potassium 4.5 mmol/L (3.5-5.1); Sodium 136 mmol/L (135-145); Total Bilirubin 0.5 mg/dl (0.2-1.3); Total Protein 6.3 g/dl (6.3-8.2); eGFR 45.48
--- NOTE | 2023-11-04 06:03 | PTCARENOTE ---
Pt having a restless night, uncooperative and agitated at times, redirected with verbal emotional support. Setting off bed alarm multiple times. Pt slept broken 2 hours total. She is alert and oriented with some intermittent confusion/hallucinations.
--- NOTE | 2023-11-04 07:45 | CON.MD ---
Consultation - Medical
-
Referring Provider: Dr. Sindhu Guzman
Chief Complaint: Stroke
History of Present Illness: 82-year-old R handed female with PMH (as below) presented to [facility] on 10/29/2023 with generalized weakness, inability to get out of bed, barely able to eat or drink. CT of the head noting a small
intraparenchymal hemorrhage in the right thalamus. Monitored with repeat imaging. Restarted on Eliquis per neuro with goal blood pressure less than 140. Also with FANTASMA on CKD. With acute metabolic encephalopathy with urine culture showing E. coli
and Klebsiella. Started on antibiotics. Seen by infectious disease and started on Macrobid 100 mg twice a day for 7 days with plan for repeat urinalysis and culture 2 weeks following completion of antibiotic therapy.
Past Medical History: CVA, A-fib with RVR, asthma, CAD, HTN, HLD, obesity, depression, DM II, CKD 3A, inflammatory arthritis, anemia of chronic disease, UTIs, chronic vertigo
Procedure History: Cholecystectomy, left chest wall pacemaker, CABG x 4, bilateral knee replacements, bilateral cataract replacement
Family History: None pertinent
Social History:
Functional Level Premorbidly: Independent with all activities
Functional Level Currently:�� Supervision for bed mobility, supervision for transfers. Ambulating 80 feet min assist with rolling walker.
Tobacco: Denies
Alcohol: Denies
Drug use: Denies
Lives with: Alone
24-hour assistance available: No
Number of floors: 1
# steps to enter: 3
Driving: No because of cataracts
Occupation: Retired
�
Allergies:
Allergy/AdvReac Type Severity Reaction Status Date / Time
Cephalosporins Allergy SOB from Verified 10/29/23 19:12
?med vs
afib/RVR
doxycycline Allergy Shortness Verified 10/29/23 19:12
of Breath
mold Allergy throat Verified 10/29/23 19:12
swells;difficulty
breathing
Penicillins Allergy hives;difficulty Verified 10/29/23 19:12
breathing;
perfume Allergy SOB/DIFFICULTY Verified 10/29/23 19:12
BREATHING
Review of Systems:
Constitutional: (x) abNormal _fatigue
Eye: (x) Normal _
Ear/Nose/Throat: (x) Normal _
Respiratory: (x) Normal _
Cardiovascular: (x) Normal _
Gastrointestinal: (x) Normal _
Genitourinary: (x) abNormal _UTI
Musculoskeletal: (x) Normal _
Integumentary: (x) Normal _
Neurologic: (x) abNormal _stroke with difficulty walking
Psychiatric: (x) Normal _
Endocrine: (x) Normal _
Hematologic/Lymphatic: (x) Normal _
Allergic/Immunologic: (x) Normal _
Medications:
Active Current Visit Medication List
Category Date Time Status
Acetaminophen [Tylenol/Feverall] Med 10/30/23 02:25 Active
650 mg RECTAL Q4HPRN PRN
Acetaminophen [Tylenol] Med 10/30/23 02:25 Active
650 mg PO Q4HPRN PRN
Apixaban [Eliquis] Med 11/01/23 20:00 Active
5 mg PO BID
Atorvastatin [Lipitor] Med 10/30/23 18:00 Active
80 mg PO QPM
Dextrose 50%-Water [Dextrose 50% Syringe] Med 10/30/23 02:25 Active
12.5 grams IV [id number] PRN
Diltiazem Extended Release [Cardizem Cd] Med 10/30/23 08:00 Active
240 mg PO DAILY
Dofetilide [Tikosyn] Med 10/30/23 08:00 Active
125 mcg PO Q12
Duloxetine Delayed Release [Cymbalta Delayed Release] Med 10/30/23 08:00 Active
30 mg PO DAILY
FOLic ACID [Folvite] Med 10/30/23 08:00 Active
0.8 mg PO DAILY
Ferrous Sulfate [Feosol] Med 10/30/23 08:00 Active
325 mg PO DAILY
Flush (0.9% Sodium Chloride) [Flush (Nss)] Med 10/30/23 03:00 Active
See Dose Instructions IV PER PROTOCOL
Furosemide [Lasix] Med 10/30/23 02:25 Hold
40 mg PO Q48H
Glucagon [GlucaGen] Med 10/30/23 02:25 Active
1 mg IM PRN PRN
Insulin Aspart Corrective Low [Novolog Flexpen-Low Med 10/30/23 07:30 Active
Resistance]
See Protocol SC AC
Insulin Aspart/Asp Protamine [Novolog Mix 70/30 Flexpen Med 11/04/23 16:30 Ordered
]
26 units SC QPM
Insulin Aspart/Asp Protamine [Novolog Mix 70/30 Flexpen Med 11/04/23 08:53 Ordered
]
30 units SC DAILY@0800
Labetalol HCl [Trandate] Med 10/30/23 09:53 Active
10 mg IV Q6HPRN PRN
Levalbuterol [Xopenex 0.63 mg Inhalant Solution] Med 10/30/23 02:25 Active
0.63 mg INH R Q6HPRN PRN
Loratadine [Claritin] Med 10/30/23 08:00 Active
10 mg PO DAILY
Losartan [Cozaar] Med 11/03/23 12:00 Active
25 mg PO DAILY
Metoprolol [Lopressor] Med 10/30/23 08:00 Active
100 mg PO BID
Nitrofurantoin Monohydrate [Macrobid] Med 11/03/23 20:00 Active
100 mg PO BID
Pantoprazole [Protonix] Med 10/30/23 18:00 Active
40 mg PO QPM
Prednisone [Deltasone] Med 11/02/23 10:00 Active
40 mg PO DAILY
Vitals:
Temp Pulse Resp BP Pulse Ox
97.5 F 65 17 146/84 96
11/04/23 07:46 11/04/23 08:54 11/04/23 08:00 11/04/23 08:54 11/04/23 07:46
Height 5 ft 1 in
Actual Weight 85.7 kg
Body Mass Index (BMI) 35.7
Physical Exam:
General Appearance/Observation: Well-developed, well-nourished female in no apparent distress.
Pain/Comfort Assessment: Denies
Mood/Affect: Appropriate
Integumentary/Operative Site:
�� Pressure Ulcer Evaluation: absent over heels.
Eyes: Conjunctiva/Lids: normal ��� Pupils: pupils equal round and reactive to light and Accommodation
Ears/Nose/Throat: oral mucosa moist,� throat clear.������������ Lips/Teeth/Gums: normal
Cardiovascular: Heart: regular, no murmur
Pulses: dorsalis pedis 2+ bilaterally
Respiratory: Respiratory Effort/Chest Expansion: normal ������ Auscultation: Clear to auscultation bilaterally
Gastrointestinal: abdomen not tender, no distension, normal abdominal bowel sounds
Genitourinary: No Valenzuela
Extremities: Edema: None Cyanosis: None Trophic changes: None
Neurology Exam:
Orientation: Alert, Oriented to self, Time, month and year. Not day of the week or date.
Memory: Intact for recent medical concerns
Repetition: Intact
Comprehension: Intact
Two step command: Impaired
Naming: Intact
Cranial Nerves:
�� CNII: Pupillary light reflex: Intact��� Visual Field: Intact
�� CN III, IV, : Extraocular muscles: Intact
�� CN V: Facial Sensation at Forehead: Intact, Maxilla: Intact, Mandible: Intact
�� CN VII: Facial movement: Symmetric
�� CN VIII: Hearing: Normal
�� CN IX/X: Speech & swallow: Normal, Position of Uvula: Midline
�� CN XI: Shoulder shrug: Symmetric
�� CN XII: Tongue protrusion: Midline
Sensory:
�� Light touch: Intact in bilateral upper and lower extremities
Reflexes:
�� Biceps: 2+ bilaterally
�� Brachioradialis: 2+ bilaterally
�� Triceps: 2+ bilaterally
�� Patellar: 2+ bilaterally
�� Achilles: 2+ bilaterally
�� Babinski: Down going bilaterally
�� Clonus: None
�� Stephanie: Negative bilaterally
Cerebellar: Dysmetria/Ataxia: None
Musculoskeletal: Motor: (Manual muscle scale 0-5)
Muscle SA EF WE EE FF FA HF KE DF EHL PF
Right� 4 5 5 5 5 5 4 5 5 5 5
Left 4 5 5 5 5 5 4 5 5 5 5
Tone: Normal in all extremities
Range of Motion: Passively within normal limits in all extremities
Lab Results
Laboratory Data
11/04/23 04:56
11/04/23 04:56
Total Bilirubin 0.5 mg/dl (0.2-1.3) 11/04/23 04:56
Direct Bilirubin 0.6 mg/dl (0.0-0.4) H 10/29/23 19:29
AST 36 U/L (14-36) 11/04/23 04:56
ALT 28 U/L (0-35) 11/04/23 04:56
Alkaline Phosphatase 67 U/L (38-126) 11/04/23 04:56
Total Protein 6.3 g/dl (6.3-8.2) 11/04/23 04:56
Albumin 3.2 g/dl (3.5-5.0) L 11/04/23 04:56
�
Diagnostic Results: as per HPI
Assessment
82-year-old right-handed F with PMH (CVA, A-fib with RVR, asthma, CAD, HTN, HLD, obesity, depression, DM II, CKD 3A, inflammatory arthritis, anemia of chronic disease, UTIs, chronic vertigo) with 10/29/2023 with generalized weakness from small
intraparenchymal hemorrhage in the right thalamus, UTI, and FANTASMA on CKD with ADL and ambulatory dysfunction.
Plan
PM&R PT/OT to increase independence with ADLs, improve balance, coordination, endurance, strength, mobility, community reintegration, decreased burden of care on others and family education.
CVA history now with intraparenchymal hemorrhage: Secondary prophylaxis with apixaban, statin, and blood pressure control (SBP less than 140 and diastolic less than 90 to participate with therapy for hemorrhagic stroke). Continue to monitor
neurologic status.
HTN: Diltiazem, losartan, metoprolol, monitor closely
HLD: Statin
Coronary artery disease: Eliquis, statin, beta-josé
Atrial fibrillation:�Eliquis anticoagulation and rate control with diltiazem and metoprolol������������������������������������������
DM II: Accu-Cheks, insulin sliding scale, aspart 70/30.
FANTASMA on CKD: Adjust medications as necessary. FANTASMA, improved, now Trending back up at BUN 40/creatinine 1.2.
Anemia: Has CKD, on iron continue to monitor.
Leukocytosis: Has been in the 12-13 range then back to normal, stable at 13. On steroids for inflammatory arthritis. Also with UTI. Monitor.
UTI: On Macrobid per ID. Will need repeat UA and culture 2 weeks after completing antibiotics per ID.
FEN: Carb controlled diet as discussed
Psych: Psychology consult.� Monitor mood, adjust Cymbalta as needed.
Pain: acetaminophen as needed.
Bowel: Colace and Senna, PRN bisacodyl.
Bladder: Time void, PVRs, PRN straight cath.
GI Prophylaxis: Pantoprazole
DVT Prophylaxis: Mechanical and Eliquis
Pulmonary: Incentive spirometry
Morbid obesity: Continue to adoption counselor patient about diet adjustments to control obesity. Body habitus and increased force to move body and extremities causes further difficulty with functional tasks.
Safety: Continue to reinforce assistance with all transfers.
Code Status:�DNR as discussed.
Dispo (date/plan/equipment needs): Home with family care.
Functional and Medical Goals: Modified Independent with ADL�s, ambulation, transfers
Discharge Destination: Acute inpatient rehabilitation
Summary of recommendations:
- Discharge Destination: Acute inpatient rehabilitation
CVA history now with intraparenchymal hemorrhage: Secondary prophylaxis with apixaban, statin, and blood pressure control (SBP less than 140 and diastolic less than 90 to participate with therapy for hemorrhagic stroke). Continue to monitor
neurologic status.
Anemia: Has CKD, on iron continue to monitor.
Leukocytosis: Has been in the 12-13 range then back to normal, stable at 13. On steroids for inflammatory arthritis. Also with UTI. Monitor.
Thank you for allowing me to care for your patient. Please contact me with any questions or concerns.
[2023-11-04 08:50] LABS: Glucose - Point of Care 236 mg/dl (70-99)
--- NOTE | 2023-11-04 08:53 | PN.DE.MGMTRT ---
Insulin Management
- -
11/03/2023: Diabetes Management Consult
82 year old female admitted on 10/30/23 for a small intraparenchymal hemorrhage in the right thalamus.
PMH includes: HTN, A-Fib, CAD and T2DM, current A1C 7.0%, improved from 7.9% on .
Pt was taking Humalog 75/25 mix, 30units in AM and 25 units in PM.
Pt developed acute hypoxic Resp insufficiency on 11/02 and was started on oral steroids- Pred 40mg daily-->Hyperglycemia.
Current Insulin regimen includes: 70/30 BID, 15 units in AM and 12 units in PM.
Glucose has remained elevated, FBG 283 this AM, Premeal 150-369, requiring 1-5 units of additional corrective insulin.
Pt has received 15 units of her AM dose, will give additional 10 units NOW and increase AM dose to 25 units.
Increase PM dose to 20 units. Will closely follow and adjust insulin regimen as necessary
11/04/2023 Diabetes Management Follow up
Patient now on prednisone 40 mg daily. Home dose of 75/25 recorded in chart as 30 units in AM and 25 units with dinner. 70/30 insulin increased yesterday, glucose remained > 300. Will increase AM 70/30 dose to 30 units and dinner dose to 26
units. Will follow for further needed adjustments
Diabetes History
- -
Type of Diabetes: 2 requiring insulin
Pre-Admission Diabetes Regimen
11/04/23
04:56
Creatinine 1.2 H
Lab Results
Hemoglobin A1c 7.0 % (4.0-5.6) H 10/30/23 03:52
Insulin Pump Settings
IP Diabetes Regimen
11/03/23 11/03/23 11/03/23
12:45 17:20 22:01
Glucose
POC Glucose 314 H 381 H 389 H
11/04/23 11/04/23 11/04/23
02:47 04:56 08:39
Glucose 239 H
POC Glucose 254 H 236 H
Meal type: Lunch
Meal type: Breakfast
Amount consumed: 100%
Amount consumed: 100%
Patient Education
[2023-11-04] MEDS: COZAAR 25 MG PO ×2 (08:54→16:50)
[2023-11-04] MEDS: CARDIZEM CD 240 MG PO (08:54)
[2023-11-04] MEDS: CLARITIN 10 MG PO (08:54)
[2023-11-04] MEDS: LOPRESSOR 100 MG PO ×2 (08:54→21:16)
[2023-11-04] MEDS: FEOSOL 325 MG PO (08:54)
[2023-11-04] MEDS: CYMBALTA DELAYED RELEASE 30 MG PO (08:54)
[2023-11-04] MEDS: TIKOSYN 125 MCG PO ×2 (08:54→21:15)
[2023-11-04] MEDS: DELTASONE 40 MG PO (08:55)
[2023-11-04] MEDS: ELIQUIS 5 MG PO ×2 (08:55→21:15)
[2023-11-04] MEDS: MACROBID 100 MG PO ×2 (08:55→21:15)
[2023-11-04] MEDS: NOVOLOG FLEXPEN-LOW RESISTANCE 3 UNITS SC (08:55)
[2023-11-04] MEDS: FOLVITE 0.800000000000000044 MG PO (08:55)
[2023-11-04] MEDS: NOVOLOG MIX 70/30 FLEXPEN 25 UNITS SC (08:56)
--- NOTE | 2023-11-04 09:38 | PTCARENOTE ---
Report given to Mary Jane DUNCAN. Patient transferred to rm [id number] in bed. All belongings with the patient.
--- NOTE | 2023-11-04 09:48 | W.PN.HOSP.TC ---
Today's Communication/Plan
-
Anticipated discharge tomorrow
Assessment / Plan
Assessment / Plan
Physical Exam
General: Well Developed, Well Nourished, No Apparent Distress, Comfortable and Conversant; Negative Respiratory Distress
HEENT: Normocephalic, Atraumatic, Nose Appears Normal and Ears Appear Normal; Negative Oxygen
Respiratory: Clear to Auscultation, Wheezes and Non Labored Respirations; Negative Accessory Resp Muscle Use
Cardiac: Regular Rhythm and S1/S2
GI: Soft, Nontender, Nondistended and Normal Bowel Sounds
Skin: Warm and Dry
Neuro: Awake, Alert and Nonfocal/Grossly Intact; Negative Slurred Speech or Facial Droop
Psych: Calm and Apparent Dementia
Assessment/Plan
HPI: 82 yo woman with hx atrial fibrillation, CAD, DM presented to the ER for fatigue over past several days with CT Head showing small intraparenchymal hemorrhage in the right thalamus.
Brought in by son per her PCP recommendation.� She continues to feel fatigued but mildly improved.
CT HEAD:
Small intraparenchymal hemorrhage in the right thalamus. Mild atrophy
A/P:
# lethargy likely due to small intraparenchymal hemorrhage in the right thalamus.
# hemorrhagic stroke with small bleed in the right thalamus
# Concern for mild dementia
repeat CTH with stable small acute right thalamic hemorrhage.
MRI brain with corresponding signal abnormality in the right thalamus as seen on CT head
Okay to continue ROUTER TENDER Eliquis per neuro
Cont Atorvastatin, LDL at 42
A1c 7.0%
Appreciate Neurology and neurosurgery input.
Maintain SBP less than 140 mmHg: added Losartan 25 mg daily on 11/03/23 to existing antihypertensive regimen --> change to Losartan 25 mg BID
PT recc acute rehab
# Acute metabolic encephalopathy, due to acute stroke vs UTI
# Concern for Mild Dementia
Monitor MS
urine Cx with E coli and Klebsiella
Status post Ceftriaxone
Status post Levaquin
Consulted ID, recommendations appreciated, due to resistance pattern of organisms above as well as for best option given patient is on Tikosyn: Macrobid 100 mg BID x 7 days started as per ID
# Acute hypoxic resp insufficiency
weaned to RA
Pt denies to resp symptoms
CXR without acute disease
Noted wheezing on exam, start prednisone 40 mg daily x5 days (11/02/23 was Day 1)
# Atrial fib with RVR
Off Cardizem drip
Cont ROUTER TENDER Cardizem, Lopressor, Tikosyn 125 mcg twice daily
Consulted cardiology about Tikosyn and QTc prolongation with QTc of 513: per cardiology, with patient's baseline abnormalities of right, bundle branch block, left anterior fascicular block and pacemaker, QT can go up to 550
ContinuePTA Eliquis
# Anemia of chronic disease
Ferrous sulfate continued
Continue to monitor
# FANTASMA , resolved
Creatinine 1.7 -> ... 0.9--->1.0-->1.2
# Inflammatory arthritis
Continue prednisone
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
# Coronary artery disease status post CABG
Continue statin
# Essential hypertension
# Type 2 diabetes
# Hyperglycemia
Insulin sliding scale
CHO diet
Insulin 75/25 at 15 units daily (ROUTER TENDER 30 units), and 12 units HS (ROUTER TENDER 25 units HS)
Consulted [facility], recommendations appreciated: Insulin titrated up
# Hyperlipidemia
On statin
# Obesity
# Depression
Continue duloxetine
DVT ppx: resume ROUTER TENDER Eliquis
DNR
Dispo: Acute rehab
Anticipated Discharge: Within 24 hours
Subjective/Interval History
-
Date of Service: November 04, 2023
Patient was seen and examined. She reported no new complaints or symptoms.
Objective Data
-
Labs:
Laboratory Results
11/04/23
04:56
WBC 13.0 H
Hgb 9.8 L
Hct 30.5 L
Plt Count 263
Sodium 136
Potassium 4.5
Chloride 110 H
Carbon Dioxide 21 L
BUN 40 H
Creatinine 1.2 H
Glucose 239 H
Calcium 9.7
Total Bilirubin 0.5
AST 36
ALT 28
Alkaline Phosphatase 67
Vital Signs:
Vital Signs
Temp Pulse Resp BP Pulse Ox
97.5 F 65 17 146/84 96
11/04/23 07:46 11/04/23 08:54 11/04/23 08:00 11/04/23 08:54 11/04/23 07:46
I&O
11/03/23 11/04/23 11/05/23
06:59 06:59 06:59
Intake Total 960 / 960 1245 / 1245
Balance 960 / 960 1245 / 1245
--- NOTE | 2023-11-04 12:21 | CON.CAR ---
Addendum entered and electronically signed by Blue Gleason MD 11/04/23 15:48:
82-year-old female (known to Dr. Harris, her primary eyeglass fitter), with paroxysmal atrial fibrillation (on dofetilide and apixaban), chronic HFpEF, CAD s/p CABG, hypertension, dyslipidemia, type 2 diabetes mellitus, SSS s/p PPM, and obesity who
presented to the emergency department the chief complaint of weakness She was found to have CVA and UTI. We are asked to comment on ongoing use on Tikosyne as QTc ?500. She is an unreliable historian. Only complaint is being stuck in bed. She has
a bed alarm. I encouraged her to call for help to get out. She had rrr, no mrg, lungs cta, no edema. She has a RBBB, LAFB and pacer present. she has a QTc <550m/s. Continue current dose of Tikosyn. Avoid meds that may prolong QT. (Levaquin has
already been discontinued and now on Macrobid).
Call back if QTc >550 as medication changes would be needed.
Original Note:
Consultation
Consultation Request
Date/Time Consultation Requested: 11/04/23 09:45
Date/Time Consultation Performed: 11/04/23 12:20
Requesting Provider: Dr. Roe
Performing Provider: SIDDHARTHA Corral for Dr. Gleason
Reason for Consultation: Prolonged QTc on dofetilide
Medical History
-
Chief Complaint: Weakness
History of Present Illness:
Sherice Delgado is an 82-year-old female (known to Dr. Harris, her primary eyeglass fitter), with paroxysmal atrial fibrillation (on dofetilide and apixaban), chronic HFpEF, CAD s/p CABG, hypertension, dyslipidemia, type 2 diabetes mellitus, SSS s/p
PPM, and obesity who presented to the emergency department the chief complaint of weakness. She was found to have a small intraparenchymal hemorrhage of the right thalamus. She was evaluated by neurology and neurosurgery. They recommended
continuation of her apixaban. She developed brief atrial fibrillation with rapid ventricular response which was managed with intravenous diltiazem. She also developed acute toxic metabolic encephalopathy due to her stroke versus a UTI. She was
given ceftriaxone and then Levaquin. Infectious disease was consulted and recommended Macrobid given dofetilide and Levaquin interaction. Cardiology has been consulted for prolonged QTc with dofetilide use.
Past Medical History
Past Medical History: Arrhythmias (paroxysmal atrial fibrillation (on dofetilide and apixaban)), CAD, CHF, CVA, HTN, Hypercholesterolemia and NIDDM
Past Surgical History: Cardiac and Orthopedic
Social History
Tobacco: Non-Smoker
Alcohol: None
Drug: None
Personal: Single
Employment: Retired
Family History
Family History: Reviewed & Not Pertinent
Allergies / Home Medications
Allergy/AdvReac Type Severity Reaction Status Date / Time
Cephalosporins Allergy SOB from Verified 10/29/23 19:12
?med vs
afib/RVR
doxycycline Allergy Shortness Verified 10/29/23 19:12
of Breath
mold Allergy throat Verified 10/29/23 19:12
swells;difficulty
breathing
Penicillins Allergy hives;difficulty Verified 10/29/23 19:12
breathing;
perfume Allergy SOB/DIFFICULTY Verified 10/29/23 19:12
BREATHING
Medication Instructions Recorded Confirmed Type
duloxetine 30 mg capsule,delayed 30 mg PO DAILY Mental Health 11/17/13 10/29/23 History
release
apixaban 5 mg tablet (Eliquis) 5 mg PO BID Blood clot 11/25/19 10/29/23 History
prevention/tx
atorvastatin 80 mg tablet 80 mg PO QPM High cholesterol 11/25/19 10/29/23 History
loratadine 10 mg tablet 10 mg PO DAILY Allergies 04/20/20 10/29/23 History
furosemide 40 mg tablet 40 mg PO Q48H Fluid 06/21/20 10/29/23 History
retention/Swelling
Vision Shield 2 tab PO DAILY Supplement 09/24/23 10/29/23 History
acetaminophen 500 mg tablet 1,000 mg PO Q6H PRN mild pain 09/24/23 10/29/23 History
(Tylenol Extra Strength)
cholecalciferol (vitamin D3) 25 25 mcg PO BID Supplement 09/24/23 10/29/23 History
mcg (1,000 unit) tablet
cranberry fruit 450 mg tablet 450 mg PO BID Supplement ##0 09/24/23 10/29/23 History
(cranberry)
dofetilide 125 mcg capsule 125 mcg PO Q12 Arrhythmia 09/24/23 10/29/23 History
ferrous sulfate 325 mg (65 mg 325 mg PO DAILY Supplement 09/24/23 10/29/23 History
iron) tablet (iron)
folic acid 0.8 mg capsule 0.8 mg PO DAILY Supplement 09/24/23 10/29/23 History
insulin lispro protamine-lispro 25 unit SC QPM Diabetes 09/24/23 10/29/23 History
100 unit/mL (75-25) subcutaneous
pen (Humalog Mix 75-25 KwikPen)
insulin lispro protamine-lispro 30 unit SC DAILY Diabetes 09/24/23 10/29/23 History
100 unit/mL (75-25) subcutaneous
pen (Humalog Mix 75-25 KwikPen)
metoprolol tartrate 100 mg tablet 100 mg PO BID Blood Pressure 09/24/23 10/29/23 History
pantoprazole 40 mg tablet,delayed 40 mg PO QPM Gastrointestinal Issue 09/24/23 10/29/23 History
release
diltiazem HCl 240 mg 240 mg PO DAILY #30 caps 10/05/23 10/29/23 Rx
capsule,extended release 24 hr
levalbuterol HCl 0.63 mg/3 mL 0.63 mg (3 mL) inhalation R Q6HPRN 10/05/23 10/29/23 Rx
solution for nebulization PRN shortness of breath/wheezing
#90 mL
prednisone 2.5 mg tablet 2.5 mg PO Q2D #30 tabs 10/05/23 10/29/23 Rx
Physical Exam
Vital Signs
Temp Pulse Resp BP Pulse Ox
97.9 F 61 18 153/72 97
11/04/23 10:07 11/04/23 10:07 11/04/23 10:07 11/04/23 10:07 11/04/23 10:07
Lab Results
11/04/23 04:56
11/04/23 04:56
Physical Exam
General: Well Developed, Well Nourished, No Apparent Distress and Comfortable
HEENT: Normocephalic, Anicteric and Moist Mucous Membranes
Respiratory: Clear and Non Labored Respirations
Cardiac: S1/S2 and Regular Rhythm
Breast: Deferred by me
GI: Soft, Non Tender, Non Distended and Normal Bowel Sounds
Rectal: Deferred by Provider
Genito-urinary: No Costovertebral Tender
Musculoskeletal: No Clubbing, No Cyanosis and No Edema
Skin: Warm and Dry
Neuro: AO x 3
Hematologic/Lymphatic: No Lymphadenopathy
Psych: Confused
Impression / Plan
-
CVA, small intraparenchymal hemorrhage of the right thalamus, per neurology and neurosurgery
Prolonged QTc
-She is on dofetilide 125 mcg twice daily, continue
-She received a dose of Levaquin intravenously 09/01/2024, which can cause a prolonged QT
-EKG in am
Atrial fibrillation with rapid ventricular response, resolved
-In sinus
-Oral Anticoagulation: Eliquis 5mg BID
-[id number]: Score 9 (CHF, HTN, age 75 or more, Diabetes Mellitus, prior Stroke/TIA, Vascular disease, female gender)
FANTASMA, resolved
Prior CVA (2015)
CAD s/p CABG, stable without chest pain
Hypertension, stable
Dyslipidemia, stable on atorvastatin
Type 2 diabetes mellitus
Data Reviewed
-
EKG: Report Reviewed by me (Atrial paced rhythm, bifascicular block, LVH, rate 60)
MRI: Report Reviewed by me (Brain: small acute hemorrhage involving the right thalamus.)
Labs: Labs Reviewed by me
Old Records: Reviewed
[2023-11-04 13:10] LABS: Glucose - Point of Care 244 mg/dl (70-99)
[2023-11-04] MEDS: NOVOLOG FLEXPEN-LOW RESISTANCE 2 UNITS SC ×2 (13:51→17:36)
--- NOTE | 2023-11-04 15:51 | W.PN.ID1 ---
Date of Service
Date of Service: November 04, 2023
Today's Communication
continue macrobid.
Assessment / Plan
Complicated urinary tract infection
- Cultures with E. coli and Klebsiella aerogenes
Leukocytosis
- Suspect steroid effect
HTN
CAD
Chronic vertigo
Hx CVA
Asthma
CHF
Dyslipidemia
Hx UTIs
DM
CKD
Recommendations:
Therapy somewhat complicated secondary to patient's allergy list which includes PCN, doxycycline and cephalosporins (although patient did tolerate 2 doses of ceftriaxone this admission which calls into question that particular allergy)
Additionally fluoroquinolones may interact with Tikosyn causing QTc prolongation. Current QTc = 506 ms
Continue Macrobid 100 mg p.o. twice daily for 7 days.
Patient should have follow-up urinalysis and urine culture approximately 2 weeks following the completion of her antibiotic therapy.
Chief Complaint
-: UTI
Subjective / Review of Systems
Review of Systems: No Fever and No Chills
Vital Signs / Physical Exam
Vital Signs
Vital Signs
Temp Pulse Resp BP Pulse Ox
97.9 F 61 18 153/72 97
11/04/23 10:07 11/04/23 10:07 11/04/23 10:07 11/04/23 10:07 11/04/23 10:07
Physical Exam
Constitutional: No Acute Distress, Comfortable and Non-toxic
Cardiovascular: S1/S2; Negative S3/S4
Pulmonary: Non Labored
Gastrointestinal: Soft and Non Tender
Neurological: Awake and Alert
Psychological: Calm
Objective Data
Lab Data
Lab Results
11/04/23 04:56
11/04/23 04:56
Estimated Creat Clear 37 ml/min 11/04/23 04:56
Total Bilirubin 0.5 mg/dl (0.2-1.3) 11/04/23 04:56
AST 36 U/L (14-36) 11/04/23 04:56
ALT 28 U/L (0-35) 11/04/23 04:56
Alkaline Phosphatase 67 U/L (38-126) 11/04/23 04:56
Most recent labs reviewed.
Micro Results:
10/31/23 09:17 Urine Culture - Final
Urine Escherichia coli
Klebsiella aerogenes
Imaging:
10/31/2023 MRI brain: Small focus of signal abnormality with susceptibility blooming within the right thalamus compatible with a small acute hemorrhage involving the right thalamus. Moderate diffuse atrophy noted. Mild periventricular leukomalacia
[2023-11-04 17:35] LABS: Glucose - Point of Care 228 mg/dl (70-99)
[2023-11-04] MEDS: LIPITOR 80 MG PO (17:37)
[2023-11-04] MEDS: PROTONIX 40 MG PO (17:37)
[2023-11-04] MEDS: NOVOLOG MIX 70/30 FLEXPEN 26 UNITS SC (18:33)
[2023-11-04] MEDS: NOVOLOG MIX 70/30 FLEXPEN SC (18:34)
--- NOTE | 2023-11-04 22:00 | PTCARENOTE ---
Pt out of bed and threatening to 'call the rivet passer' and making attempts to leave her room. Pt is AAOx2 to person and time. Code purple called and pt escorted into Anuradha chair by security. Pt is able to make needs known but remains confused. House PRESCRIPTION CLERK LENSES
Emma Glass notified, order for soft limb restraints and IM Zyprexa ordered stat. Pt is now calm and does not require IM Zyprexa order at this time. Will continue to monitor.
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
--- NOTE | 2023-11-04 23:37 | PTCARENOTE ---
Pt refusing accucheck tonight. House UTILITIES MANAGER Emma Glass notified, no new orders at this time. Will continue to monitor.
[2023-11-05] VITALS (9 sets, daily range): BP systolic 131–168; BP diastolic 57–71; PULSE 61; BMI 35.4
--- NOTE | 2023-11-05 02:16 | PTCARENOTE ---
Pt's restraint order changed from soft limbs with four siderails to Anuradha chair with four side rails by BASEBALL GLOVE STUFFER Emma Glass. Will continue to monitor.
[2023-11-05] MEDS: COZAAR 25 MG PO (03:45)
[2023-11-05 08:21] LABS: % Basophils 0.2 % (0-2); % Eosinophils 0.1 % (0-6); % Lymphocytes 16.1 % (20.5-51.1); % Monocytes 6.5 % (1.7-9.3); % Neutrophils 75.1 % (42.2-75.2); Absolute Immature Granulocytes 0.3 10^3/uL (0-0.05); Absolute Lymphocytes 2.1 10^3/uL (1.2-3.4); Absolute Monocytes 0.9 10^3/uL (0.1-0.6); Absolute Neutrophils 9.9 10^3/uL (1.4-6.5); Hematocrit 30.9 % (37.0-47.0); Hemoglobin 9.6 g/dL (12.0-16.0); Mean Corp Hgb Conc. 31.1 g/dL (33.0-37.0); Mean Corpuscular Hgb 28.2 pg (27.0-31.0); Mean Corpuscular Volume 90.6 fL (81.0-99.0); Nucleated Red Blood Cells % 0 %; Platelet Count 299 10^3/uL (130-400); Red Blood Cell Count 3.41 10^6/uL (4.20-5.40); Red Cell Dist. Width 14.6 % (11.5-14.5); White Blood Cell Count 13.1 10^3/uL (4.8-10.8)
[2023-11-05] MEDS: NOVOLOG FLEXPEN-LOW RESISTANCE 2 UNITS SC ×2 (08:27→16:37)
[2023-11-05] MEDS: MACROBID 100 MG PO ×2 (08:28→21:47)
[2023-11-05] MEDS: ELIQUIS 5 MG PO ×2 (08:28→21:46)
[2023-11-05] MEDS: TIKOSYN 125 MCG PO ×2 (08:28→21:45)
[2023-11-05] MEDS: CARDIZEM CD 240 MG PO (08:28)
[2023-11-05] MEDS: FEOSOL 325 MG PO (08:28)
[2023-11-05] MEDS: LOPRESSOR 100 MG PO ×2 (08:28→21:46)
[2023-11-05] MEDS: CLARITIN 10 MG PO (08:28)
[2023-11-05] MEDS: DELTASONE 40 MG PO (08:28)
[2023-11-05] MEDS: CYMBALTA DELAYED RELEASE 30 MG PO (08:29)
[2023-11-05] MEDS: FOLVITE 0.800000000000000044 MG PO (08:29)
[2023-11-05] MEDS: NOVOLOG MIX 70/30 FLEXPEN 30 UNITS SC (08:30)
[2023-11-05 08:44] LABS: ALT (SGPT) 24 U/L (0-35); AST (SGOT) 32 U/L (14-36); Albumin 3.1 g/dl (3.5-5.0); Alkaline Phosphatase 56 U/L (38-126); Blood Urea Nitrogen 43 mg/dl (7-17); Calcium 10.1 mg/dl (8.4-10.2); Carbon Dioxide 24 mmol/L (22-30); Chloride 107 mmol/L (98-107); Estimated Creatinine Clearance 37 ml/min; Glucose 106 mg/dl (70-99); Sodium 140 mmol/L (135-145); Total Bilirubin 0.6 mg/dl (0.2-1.3); Total Protein 6.1 g/dl (6.3-8.2); eGFR 45.48
--- NOTE | 2023-11-05 09:55 | PN.DE.MGMTRT ---
Insulin Management
- -
11/03/2023: Diabetes Management Consult
82 year old female admitted on 10/30/23 for a small intraparenchymal hemorrhage in the right thalamus.
PMH includes: HTN, A-Fib, CAD and T2DM, current A1C 7.0%, improved from 7.9% on .
Pt was taking Humalog 75/25 mix, 30units in AM and 25 units in PM.
Pt developed acute hypoxic Resp insufficiency on 11/02 and was started on oral steroids- Pred 40mg daily-->Hyperglycemia.
Current Insulin regimen includes: 70/30 BID, 15 units in AM and 12 units in PM.
Glucose has remained elevated, FBG 283 this AM, Premeal 150-369, requiring 1-5 units of additional corrective insulin.
Pt has received 15 units of her AM dose, will give additional 10 units NOW and increase AM dose to 25 units.
Increase PM dose to 20 units. Will closely follow and adjust insulin regimen as necessary
11/04/2023 Diabetes Management Follow up
Patient now on prednisone 40 mg daily. Home dose of 75/25 recorded in chart as 30 units in AM and 25 units with dinner. 70/30 insulin increased yesterday, glucose remained > 300. Will increase AM 70/30 dose to 30 units and dinner dose to 26
units. Will follow for further needed adjustments
11/05/2023 Diabetes Management Follow up
70/30 doses increased yesterday, first dose of 30 units given this AM. Pre dinner 70/30 increased to 26 units, no HS glucose obtained. Fasting glucose this AM 106, 30 units 70/30 administered. Will make no further changes to insulin today. Will
follow.
Diabetes History
- -
Type of Diabetes: 2 requiring insulin
Pre-Admission Diabetes Regimen
11/05/23
07:47
Creatinine 1.2 H
Lab Results
Hemoglobin A1c 7.0 % (4.0-5.6) H 10/30/23 03:52
Insulin Pump Settings
IP Diabetes Regimen
11/04/23 11/04/23 11/05/23
13:08 17:33 07:47
Glucose 106 H
POC Glucose 244 H 228 H
Meal type: Breakfast
Amount consumed: 100%
Patient Education
--- NOTE | 2023-11-05 11:04 | W.PN.HOSP.TC ---
Today's Communication/Plan
-
Lasix restarted with hopefully better control of blood pressure
Watch creatinine/renal function, if continues to get worse will need to consult nephrology
Assessment / Plan
Assessment / Plan
Physical Exam
General: Well Developed, Well Nourished, No Apparent Distress, Comfortable and Conversant
HEENT: Normocephalic, Atraumatic, Nose Appears Normal and Ears Appear Normal
Respiratory: Clear to Auscultation, Wheezes and Non Labored Respirations
Cardiac: Regular Rhythm and S1/S2
GI: Soft, Nontender, Nondistended and Normal Bowel Sounds
Skin: Warm and Dry
Neuro: Awake, Alert and Nonfocal/Grossly Intact
Psych: Calm and Apparent Dementia
Assessment/Plan
HPI: 82 yo woman with hx atrial fibrillation, CAD, DM presented to the ER for fatigue over past several days with CT Head showing small intraparenchymal hemorrhage in the right thalamus.
Brought in by son per her PCP recommendation.� She continues to feel fatigued but mildly improved.
CT HEAD:
Small intraparenchymal hemorrhage in the right thalamus. Mild atrophy
# Lethargy likely due to small intraparenchymal hemorrhage in the right thalamus.
# Hemorrhagic stroke with small bleed in the right thalamus
# Concern for mild dementia
repeat CT Head with stable small acute right thalamic hemorrhage.
MRI brain with corresponding signal abnormality in the right thalamus as seen on CT head
Okay to continue ASSISTANT DIRECTOR OF SECURITY Eliquis per neurology
Cont Atorvastatin, LDL at 42
A1c 7.0%
Appreciate Neurology and neurosurgery input.
Maintain SBP less than 140 mmHg: added Losartan on 11/03/23 to existing antihypertensive regimen
PT recommended acute rehab
-Delirium precautions
-Avoid cerebral hypoperfusion, FRAMING MACHINE TENDER suppressants and anticholinergic medications.
-Check TSH, free T4, vit B12
-Outpatient neuropsychological evaluation
#Prolonged QTc
-Avoid additional QTc-prolonging medications
# Acute metabolic encephalopathy, due to acute stroke vs UTI
# Concern for Mild Dementia
Monitor mental status
Urine culture with E coli and Klebsiella
Status post Ceftriaxone
Status post Levaquin
Patient should have follow-up urinalysis and urine culture approximately 2 weeks following the completion of her antibiotic therapy.
Consulted ID, recommendations appreciated, due to resistance pattern of organisms above as well as for best option given patient is on Tikosyn: Macrobid 100 mg BID x 7 days started as per ID
# Acute hypoxic resp insufficiency
Weaned to RA
Pt denies to resp symptoms
CXR without acute disease
Noted wheezing on exam, continue prednisone 40 mg daily x5 days (11/02/23 was Day 1)
# Atrial fib with rapid ventricular response
Off Cardizem drip
Continue ASSISTANT DIRECTOR OF SECURITY Cardizem, Lopressor, Tikosyn 125 mcg twice daily
Consulted cardiology about Tikosyn and QTc prolongation with QTc of 513: per cardiology, with patient's baseline abnormalities of right, bundle branch block, left anterior fascicular block and pacemaker, QT can go up to 550
Continue ASSISTANT DIRECTOR OF SECURITY Eliquis
# Anemia of chronic disease
Ferrous sulfate continued
Continue to monitor
# FANTASMA , resolved
Creatinine 1.7 -> ... 0.9--->1.0-->1.2-->1.2
# Inflammatory arthritis
Continue prednisone
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
# Coronary artery disease status post CABG
Continue statin
# Essential hypertension
# Type 2 diabetes
# Hyperglycemia
Insulin sliding scale
CHO diet
Consulted Diabetes EVIDENCE SPECIALIST, recommendations appreciated: Insulin titrated up
# Hyperlipidemia
On statin
# Obesity
# Depression
Continue duloxetine
DVT ppx: resume ASSISTANT DIRECTOR OF SECURITY Eliquis
DNR
Dispo: Acute rehab
Anticipated Discharge: 24 - 48 hours
Subjective/Interval History
-
Date of Service: November 05, 2023
Patient was seen and examined. She reported no new symptoms but was agitated last night and more confused this morning.
Objective Data
-
Labs:
Laboratory Results
11/05/23
07:47
WBC 13.1 H
Hgb 9.6 L
Hct 30.9 L
Plt Count 299
Sodium 140
Potassium 4.0
Chloride 107
Carbon Dioxide 24
BUN 43 H
Creatinine 1.2 H
Glucose 106 H
Calcium 10.1
Total Bilirubin 0.6
AST 32
ALT 24
Alkaline Phosphatase 56
Vital Signs:
Vital Signs
Temp Pulse Resp BP Pulse Ox
97.6 F 60 20 168/64 95
11/05/23 07:00 11/05/23 07:00 11/05/23 07:00 11/05/23 08:28 11/05/23 07:00
I&O
11/04/23 11/05/23 11/06/23
06:59 06:59 06:59
Intake Total 1245 / 1245 120 / 120
Balance 1245 / 1245 120 / 120
--- NOTE | 2023-11-05 11:51 | W.PN.CD ---
Addendum entered and electronically signed by Blue Gleason MD 11/05/23 15:06:
I saw and examined the patient.
The INDIRECT SALES EXEC's note was reviewed and I agree with the note.
Comment: She is without complaint, no sob or cp. RRR s1 s2 are normal. Lungs are CTA b/l, no edema. elevated bp noted, agree with adding back lasix. ECG with stal QTC continue to Tikosyn.
Original Note:
Today's Communication / Plan
-
resume Lasix and monitor BP.
Impression / Plan
-
CVA - small intraparenchymal hemorrhage of the right thalamus.
- per neurology and neurosurgery.
Prolonged QTc - stable.
- continue on dofetilide 125 mcg twice daily.
- avoiding meds that prolong the QT interval. received one dose of Levaquin this admit.
- EKG today stable.
HTN - elevated readings here.
- Lasix was held, resume and monitor.
Atrial fibrillation - paroxysmal.
- In sinus.
- Oral Anticoagulation: Eliquis 5mg BID.
- [id number]: Score 9 (CHF, HTN, age 75 or more, Diabetes Mellitus, prior Stroke/TIA, Vascular disease, female gender).
CKD/FANTASMA - resolved.
Prior CVA (2015) - stable.
CAD s/p CABG, stable without chest pain
Dyslipidemia, stable on atorvastatin
Type 2 diabetes mellitus - per hospitalist
Physical Exam
Vital Signs/Labs
Vital Signs
Temp Pulse Resp BP Pulse Ox
97.6 F 60 20 168/64 95
11/05/23 07:00 11/05/23 07:00 11/05/23 07:00 11/05/23 08:28 11/05/23 07:00
11/04/23 11/05/23 11/06/23
06:59 06:59 06:59
Actual Weight 85.7 kg
11/05/23 07:47
11/05/23 07:47
Magnesium 1.7 mg/dl (1.6-2.3) 10/29/23 19:29
Triglycerides 90 mg/dl (10-149) 10/30/23 03:52
LDL Cholesterol, Calc 42 mg/dl 10/30/23 03:52
VLDL Cholesterol, Calc 18 mg/dl (0-30) 10/30/23 03:52
HDL Cholesterol 35 mg/dl 10/30/23 03:52
Physical Exam
Constitutional: No acute distress
EENT: Anicteric and Moist mucous membranes
Cardiovascular: Rhythm & rate is regular
Respiratory: Respiratory effort normal and Lungs clear to auscul.
GI: Soft, Non tender and Normal bowel sounds
Neuro/Psych: AO x 3
Other: Skin (warm, dry)
Data Reviewed
-
Date of Service: November 05, 2023
EKG: Tracing Personally Visualized and interpreted
Labs: Labs Reviewed by me
Old Records: Reviewed
[2023-11-05 12:32] LABS: Glucose - Point of Care 189 mg/dl (70-99)
[2023-11-05] MEDS: NOVOLOG FLEXPEN-LOW RESISTANCE 1 UNITS SC (12:33)
--- NOTE | 2023-11-05 16:27 | W.PN.ID1 ---
Date of Service
Date of Service: November 05, 2023
Today's Communication
Continue macrodantin
Assessment / Plan
Complicated urinary tract infection
- Cultures with E. coli and Klebsiella aerogenes
Leukocytosis
- Suspect steroid effect
HTN
CAD
Chronic vertigo
Hx CVA
Asthma
CHF
Dyslipidemia
Hx UTIs
DM
CKD
Recommendations:
Continue Macrobid 100 mg p.o. twice daily (d#3) to complete 7 days.
Patient should have follow-up urinalysis and urine culture approximately 2 weeks following the completion of her antibiotic therapy.
Chief Complaint
-: UTI
Subjective / Review of Systems
Review of Systems: No Fever
Vital Signs / Physical Exam
Vital Signs
Vital Signs
Temp Pulse Resp BP Pulse Ox
97.6 F 60 16 149/69 95
11/05/23 11:00 11/05/23 11:00 11/05/23 11:00 11/05/23 11:00 11/05/23 11:00
Physical Exam
Physical Exam:
Constitutional: No Acute Distress, Comfortable and Non-toxic
Cardiovascular: S1/S2; Negative S3/S4
Pulmonary: Non Labored
Gastrointestinal: Soft and Non Tender
Neurological: Awake and Alert
Objective Data
Lab Data
Lab Results
11/05/23 07:47
11/05/23 07:47
Estimated Creat Clear 37 ml/min 11/05/23 07:47
Total Bilirubin 0.6 mg/dl (0.2-1.3) 11/05/23 07:47
AST 32 U/L (14-36) 11/05/23 07:47
ALT 24 U/L (0-35) 11/05/23 07:47
Alkaline Phosphatase 56 U/L (38-126) 11/05/23 07:47
Most recent labs reviewed.
Micro Results:
10/31/23 09:17 Urine Culture - Final
Urine Escherichia coli
Klebsiella aerogenes
Imaging:
10/31/2023 MRI brain: Small focus of signal abnormality with susceptibility blooming within the right thalamus compatible with a small acute hemorrhage involving the right thalamus. Moderate diffuse atrophy noted. Mild periventricular leukomalacia
[2023-11-05 16:38] LABS: Glucose - Point of Care 242 mg/dl (70-99)
--- NOTE | 2023-11-05 16:44 | W.PN.NEURO.1 ---
Today's Communication / Plan
-
.
Neuro Assessment/Plan
Assessment
Right-sided basal ganglia intracranial hemorrhage occurring while on apixaban. Etiology is most likely due to small vessel disease given the location and past medical conditions with vascular disease. Amyloid angiopathy would also be a
consideration with her age although this is more often associated with cortical location of hemorrhage.
Plan
Recommendations:
May restart anticoagulation based on small size of initial lesion and time already passed
Pending brain MRI without contrast
Will follow pending results.
Subjective/Objective
Subjective Data
Date of Service: November 05, 2023
CC: none
HPI: This is an 82-year-old woman who presented to [facility] on 10/29/2023 with malaise and was found to have right thalamic ICH
Neurology service was reconsulted for worsening of confusion. MS. Fontaine reports no complaints. According to EMR she was agitated yesterday in the evening.
Labs: WBCs�13.9, glucose�106, creatinine�1.2.
MAR: prednisone
Brain MRI wo tre(10/31/2023)-Small focus of signal abnormality with susceptibility blooming within the right thalamus, corresponding to small focus of increased density on recent CT examinations. This is compatible with a small acute hemorrhage
involving the right thalamus. Several foci of susceptibility blooming on T2 gradient echo sequence, as described, and most suggestive of foci of old microhemorrhage, which are most likely from hypertensive microangiopathy. Amyloid angiopathy is the
main differential consideration, but usually has a cortical and peripheral hemispheric distribution. Moderate diffuse atrophy.
CT head wo contrast(11/05/2023)-slight increase in conspicuity of the focus of increased density in the right thalamus suggesting minimal recurrent hemorrhage. No significant adjacent edema or mass effect.�
PDMP: none
PMH: A-fib, CAD, HTN, DLP, DM CHF, SSS, asthma, fibromyalgia
PSH: PPM, bilateral cataract surgery, CABG, cholecystectomy, Gynecological and Orthopedic
SH: Lives alone, retired nursing high school foreign language tutor, does not drive
All: Penicillins, doxycycline
ROS:Constitutional: Negative. Negative for chills, fever and unexpected weight change.
HENT: Negative for ear pain, hearing loss, tinnitus and trouble swallowing.
Eyes: Negative. Negative for photophobia, pain and visual disturbance.
Respiratory: Negative for cough, choking and shortness of breath.
Cardiovascular: Negative for chest pain, palpitations and leg swelling.
Gastrointestinal: Negative for abdominal pain and vomiting.
Endocrine: Negative. Negative for cold intolerance.
Genitourinary: Positive for dysuria, urinary urgency
Musculoskeletal: Negative for back pain, gait problem, neck pain and neck stiffness.
Skin: Negative for rash.
Allergic/Immunologic: Negative. Negative for immunocompromised state.
Neurological: Positive for confusion, negative for headache
General: Well developed. In no acute distress.
Cardio: Regular rate and rhythm without murmur. Extremities are without cyanosis or edema.
Neuro:
Mental Status: Alert, oriented to person, place, month, not to date. Mild expressive aphasia. Follows simple requests. Poor attention.
Cranial Nerves: Pupils are equally round, surgical. EOMs full. Visual may full to confrontation. No ptosis. No nystagmus. V1-V3 intact to light touch and pinprick bilaterally, symmetric. Face symmetric. Normal hearing AU. The palate
elevated well. SCMs and traps 5/5. Tongue midline. No dysarthria.
Sensory: Normal LT
Coordination: Symmetric action hand tremor. No dysmetria.
Gait: deferred
Assessment and Plan:
I. Multifactorial encephalopathy (vascular, metabolic, infectious) with likely untreated delirium
II. Acute-subacute R thalamic ICH
III. 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
IV. UTI
V. PA A-Fib
-Delirium precautions
-Avoid cerebral hypoperfusion, BLACKTOP SPREADER suppressants and anticholinergic medications.
-please check TSH, free T4, vit B12
-Continue Eliquis
-Outpatient neuropsychological evaluation
-Please recall neurology service with any questions or concerns
I personally reviewed all radiology and labs along with past medical records pertinent to current medical problems.
Thank you for allowing us to participate in the care of this patient. Please do not hesitate to contact us with any questions or concerns.
Objective Data
Vital Signs
Temp Pulse Resp BP Pulse Ox
36.4 C 60 16 149/69 95
11/05/23 11:00 11/05/23 11:00 11/05/23 11:00 11/05/23 11:00 11/05/23 11:00
Lab Results
11/05/23 07:47
11/05/23 07:47
Sodium 140 mmol/L (135-145) 11/05/23 07:47
Potassium 4.0 mmol/L (3.5-5.1) 11/05/23 07:47
BUN 43 mg/dl (7-17) H 11/05/23 07:47
Glucose 106 mg/dl (70-99) H 11/05/23 07:47
Calcium 10.1 mg/dl (8.4-10.2) 11/05/23 07:47
LDL Cholesterol, Calc 42 mg/dl 10/30/23 03:52
Patient Allergies
Cephalosporins Allergy (Verified 10/29/23 19:12)
SOB from ?med vs afib/RVR
doxycycline Allergy (Verified 10/29/23 19:12)
Shortness of Breath
mold Allergy (Verified 10/29/23 19:12)
throat swells;difficulty breathing
Penicillins Allergy (Verified 10/29/23 19:12)
hives;difficulty breathing;
perfume Allergy (Verified 10/29/23 19:12)
SOB/DIFFICULTY BREATHING
[2023-11-05] MEDS: LIPITOR 80 MG PO (17:18)
[2023-11-05] MEDS: PROTONIX 40 MG PO (17:18)
[2023-11-05] MEDS: NOVOLOG MIX 70/30 FLEXPEN 26 UNITS SC (17:18)
[2023-11-05] MEDS: LASIX 40 MG PO (17:58)
[2023-11-05] MEDS: COZAAR 50 MG PO (21:45)
[2023-11-06] VITALS (7 sets, daily range): BP systolic 137–164; BP diastolic 58–86; BMI 34.8
[2023-11-06 00:53] LABS: Glucose - Point of Care 266 mg/dl (70-99)
[2023-11-06 07:55] LABS: Glucose - Point of Care 246 mg/dl (70-99)
[2023-11-06 08:19] LABS: % Basophils 0.2 % (0-2); % Eosinophils 0.1 % (0-6); % Immature Granulocytes 2.8 % (0-0.5); % Lymphocytes 15.3 % (20.5-51.1); % Monocytes 7.7 % (1.7-9.3); % Neutrophils 73.9 % (42.2-75.2); Absolute Immature Granulocytes 0.4 10^3/uL (0-0.05); Absolute Neutrophils 9.6 10^3/uL (1.4-6.5); Hematocrit 33.3 % (37.0-47.0); Hemoglobin 10.6 g/dL (12.0-16.0); Mean Corp Hgb Conc. 31.8 g/dL (33.0-37.0); Mean Corpuscular Hgb 28.1 pg (27.0-31.0); Mean Corpuscular Volume 88.3 fL (81.0-99.0); Mean Platelet Volume 10.7 fL (7.4-10.4); Nucleated Red Blood Cells % 0.2 %; Platelet Count 286 10^3/uL (130-400); Red Blood Cell Count 3.77 10^6/uL (4.20-5.40); Red Cell Dist. Width 14.6 % (11.5-14.5)
[2023-11-06 08:32] LABS: ALT (SGPT) 26 U/L (0-35); AST (SGOT) 31 U/L (14-36); Albumin 3.4 g/dl (3.5-5.0); Alkaline Phosphatase 68 U/L (38-126); Blood Urea Nitrogen 38 mg/dl (7-17); Calcium 9.6 mg/dl (8.4-10.2); Carbon Dioxide 26 mmol/L (22-30); Chloride 106 mmol/L (98-107); Estimated Creatinine Clearance 36 ml/min; Glucose 260 mg/dl (70-99); Potassium 3.9 mmol/L (3.5-5.1); Sodium 138 mmol/L (135-145); Total Bilirubin 0.6 mg/dl (0.2-1.3); Total Protein 6.5 g/dl (6.3-8.2); eGFR 45.48
[2023-11-06] MEDS: FOLVITE 0.800000000000000044 MG PO (08:35)
[2023-11-06] MEDS: DELTASONE 40 MG PO (08:35)
[2023-11-06] MEDS: CYMBALTA DELAYED RELEASE 30 MG PO (08:35)
[2023-11-06] MEDS: COZAAR 50 MG PO ×2 (08:35→20:09)
[2023-11-06] MEDS: CLARITIN 10 MG PO (08:36)
[2023-11-06] MEDS: LOPRESSOR 100 MG PO ×2 (08:36→20:09)
[2023-11-06] MEDS: FEOSOL 325 MG PO (08:36)
[2023-11-06] MEDS: TIKOSYN 125 MCG PO ×2 (08:36→20:08)
[2023-11-06] MEDS: MACROBID 100 MG PO ×2 (08:36→20:08)
[2023-11-06] MEDS: CARDIZEM CD 240 MG PO (08:36)
[2023-11-06] MEDS: ELIQUIS 5 MG PO ×2 (08:36→20:09)
[2023-11-06] MEDS: NOVOLOG MIX 70/30 FLEXPEN 30 UNITS SC ×2 (08:36→17:54)
[2023-11-06] MEDS: NOVOLOG FLEXPEN-LOW RESISTANCE 2 UNITS SC (08:37)
--- NOTE | 2023-11-06 08:47 | W.PN.CD ---
Addendum entered and electronically signed by Margarito Jimenez MD 11/06/23 13:12:
-Upon more thorough review of the patient's blood pressure, she has labile hypertension.
-Must be careful not to be too aggressive, especially in the setting of a brain bleed.
-Blood pressure is actually fairly controlled overall, although not perfect.
-Recommend continuing current medications.
Original Note:
Today's Communication / Plan
-
- Atrial paced on telemetry; stable.
- Will update echocardiogram today for medical optimization.
Impression / Plan
-
CVA - small intraparenchymal hemorrhage of the right thalamus.
- per neurology and neurosurgery.
Prolonged QTc - stable.
- continue on dofetilide 125 mcg twice daily.
- avoiding meds that prolong the QT interval. received one dose of Levaquin this admit.
- Atrial paced on telemetry; stable.
HTN - elevated readings here.
- Lasix was held, resume and monitor.
Atrial fibrillation - paroxysmal.
- In sinus.
- Oral Anticoagulation: Eliquis 5mg BID.
- [id number]: Score 9 (CHF, HTN, age 75 or more, Diabetes Mellitus, prior Stroke/TIA, Vascular disease, female gender).
CAD s/p CABG, stable without chest pain:
- Will update echocardiogram today for medical optimization.
CKD/FANTASMA - resolved.
Prior CVA (2016) - stable.
Dyslipidemia, stable on atorvastatin
Type 2 diabetes mellitus - per hospitalist
Physical Exam
Vital Signs/Labs
Vital Signs
Temp Pulse Resp BP Pulse Ox
98 F 61 16 148/68 95
11/06/23 03:00 11/06/23 03:00 11/06/23 03:00 11/06/23 03:00 11/06/23 03:00
11/05/23 11/06/23 11/07/23
06:59 06:59 06:59
Actual Weight 83.461 kg
11/06/23 08:01
11/06/23 08:01
Magnesium 1.7 mg/dl (1.6-2.3) 10/29/23 19:29
Triglycerides 90 mg/dl (10-149) 10/30/23 03:52
LDL Cholesterol, Calc 42 mg/dl 10/30/23 03:52
VLDL Cholesterol, Calc 18 mg/dl (0-30) 10/30/23 03:52
HDL Cholesterol 35 mg/dl 10/30/23 03:52
Physical Exam
Constitutional: No acute distress and Comfortable
EENT: Anicteric
Cardiovascular: Rhythm & rate is regular, Pedal edema is absent, Systolic murmur absent and S1S2 is normal
Respiratory: Respiratory effort normal and Lungs clear to auscul.
GI: Soft
Neuro/Psych: AO x 3
Other: Skin (Warm, dry, intact)
Data Reviewed
-
Date of Service: November 06, 2023
EKG: Tracing Personally Visualized and interpreted (Telemetry: Atrial paced)
Labs: Labs Reviewed by me
--- NOTE | 2023-11-06 08:49 | PN.DE.MGMTRT ---
Insulin Management
- -
11/03/2023: Diabetes Management Consult
82 year old female admitted on 10/30/23 for a small intraparenchymal hemorrhage in the right thalamus.
PMH includes: HTN, A-Fib, CAD and T2DM, current A1C 7.0%, improved from 7.9% on .
Pt was taking Humalog 75/25 mix, 30units in AM and 25 units in PM.
Pt developed acute hypoxic Resp insufficiency on 11/02 and was started on oral steroids- Pred 40mg daily-->Hyperglycemia.
Current Insulin regimen includes: 70/30 BID, 15 units in AM and 12 units in PM.
Glucose has remained elevated, FBG 283 this AM, Premeal 150-369, requiring 1-5 units of additional corrective insulin.
Pt has received 15 units of her AM dose, will give additional 10 units NOW and increase AM dose to 25 units.
Increase PM dose to 20 units. Will closely follow and adjust insulin regimen as necessary
11/04/2023 Diabetes Management Follow up
Patient now on prednisone 40 mg daily. Home dose of 75/25 recorded in chart as 30 units in AM and 25 units with dinner. 70/30 insulin increased yesterday, glucose remained > 300. Will increase AM 70/30 dose to 30 units and dinner dose to 26
units. Will follow for further needed adjustments
11/05/2023 Diabetes Management Follow up
70/30 doses increased yesterday, first dose of 30 units given this AM. Pre dinner 70/30 increased to 26 units, no HS glucose obtained. Fasting glucose this AM 106, 30 units 70/30 administered. Will make no further changes to insulin today. Will
follow.
11/06/2023 Diabetes Management Follow up
Glucose @ HS 266, fasting this AM 246. Will increase pre dinner 70/30 to 30 units, continue AM dose 30 units. Will continue to follow for further needed adjustments.
Diabetes History
- -
Type of Diabetes: 2 requiring insulin
Pre-Admission Diabetes Regimen
11/06/23
08:01
Creatinine 1.2 H
Lab Results
Hemoglobin A1c 7.0 % (4.0-5.6) H 10/30/23 03:52
Insulin Pump Settings
IP Diabetes Regimen
11/05/23 11/05/23 11/06/23
12:31 16:36 00:52
Glucose
POC Glucose 189 H 242 H 266 H
11/06/23 11/06/23
07:53 08:01
Glucose 260 H
POC Glucose 246 H
Meal type: Dinner
Meal type: Lunch
Amount consumed: 100%
Amount consumed: 100%
Patient Education
--- NOTE | 2023-11-06 12:57 | CM ---
CM spoke with Niko from [facility], would like to see patients blood pressure come down, concerned about rebleed from Head CT scan, plan to accept patient tomorrow, TT sent to Hospitalist to provide update. CM met with patient, discussed plan for [facility] tomorrow. CM will continue to follow for discharge planning needs.
Plan; [facility], d/c tomorrow.
[2023-11-06 13:02] LABS: Glucose - Point of Care 349 mg/dl (70-99)
[2023-11-06] MEDS: NOVOLOG FLEXPEN-LOW RESISTANCE 4 UNITS SC (13:32)
--- NOTE | 2023-11-06 13:41 | W.PN.ID1 ---
Date of Service
Date of Service: November 06, 2023
Today's Communication
Continue antibiotics
Assessment / Plan
Complicated urinary tract infection
- Cultures with E. coli and Klebsiella aerogenes
Leukocytosis
- Suspect steroid effect
HTN
CAD
Chronic vertigo
Hx CVA
Asthma
CHF
Dyslipidemia
Hx UTIs
DM
CKD
Recommendations:
Continue Macrobid 100 mg p.o. twice daily (d#4) to complete 7 days.
Patient should have follow-up urinalysis and urine culture approximately 2 weeks following the completion of her antibiotic therapy.
Chief Complaint
-: UTI
Subjective / Review of Systems
Review of Systems: No Fever, No Chills and No Dysuria
Vital Signs / Physical Exam
Vital Signs
Vital Signs
Temp Pulse Resp BP Pulse Ox
97.8 F 61 16 137/74 96
11/06/23 11:40 11/06/23 11:40 11/06/23 11:40 11/06/23 11:40 11/06/23 11:40
Physical Exam
Physical Exam:
Constitutional: No Acute Distress, Comfortable and Non-toxic
Cardiovascular: S1/S2; Negative S3/S4
Pulmonary: Non Labored
Gastrointestinal: Soft and Non Tender
Neurological: Awake and Alert
Objective Data
Lab Data
Lab Results
11/06/23 08:01
11/06/23 08:01
Estimated Creat Clear 36 ml/min 11/06/23 08:01
Total Bilirubin 0.6 mg/dl (0.2-1.3) 11/06/23 08:01
AST 31 U/L (14-36) 11/06/23 08:01
ALT 26 U/L (0-35) 11/06/23 08:01
Alkaline Phosphatase 68 U/L (38-126) 11/06/23 08:01
Most recent labs reviewed.
Micro Results:
10/31/23 09:17 Urine Culture - Final
Urine Escherichia coli
Klebsiella aerogenes
Imaging:
10/31/2023 MRI brain: Small focus of signal abnormality with susceptibility blooming within the right thalamus compatible with a small acute hemorrhage involving the right thalamus. Moderate diffuse atrophy noted. Mild periventricular leukomalacia
--- NOTE | 2023-11-06 15:21 | W.PN.HOSP.TC ---
Today's Communication/Plan
-
The earliest [facility] will accept patient is tomorrow
Assessment / Plan
Assessment / Plan
Physical Exam
General: Well Developed, Well Nourished, No Apparent Distress, Comfortable and Conversant
HEENT: Normocephalic, Atraumatic, Nose Appears Normal and Ears Appear Normal
Respiratory: Clear to Auscultation, Wheezes and Non Labored Respirations
Cardiac: Regular Rhythm and S1/S2
GI: Soft, Nontender, Nondistended and Normal Bowel Sounds
Skin: Warm and Dry
Neuro: Awake, Alert and Nonfocal/Grossly Intact
Psych: Calm and Apparent Dementia
Assessment/Plan
HPI: 82 yo woman with hx atrial fibrillation, CAD, DM presented to the ER for fatigue over past several days with CT Head showing small intraparenchymal hemorrhage in the right thalamus.
Brought in by son per her PCP recommendation.� She continues to feel fatigued but mildly improved.
CT HEAD:
Small intraparenchymal hemorrhage in the right thalamus. Mild atrophy
# Lethargy likely due to small intraparenchymal hemorrhage in the right thalamus.
# Hemorrhagic stroke with small bleed in the right thalamus
# Concern for mild dementia
repeat CT Head with stable small acute right thalamic hemorrhage.
MRI brain with corresponding signal abnormality in the right thalamus as seen on CT head
Okay to continue CHEMISTRY ACCOUNT MANAGER Eliquis per neurology
Cont Atorvastatin, LDL at 42
A1c 7.0%
Appreciate Neurology and neurosurgery input.
Maintain SBP less than 140 mmHg: added Losartan on 11/03/23 to existing antihypertensive regimen
But patient has labile hypertension: so as per cardiology, must be careful not to be too aggressive, especially in the setting of a brain bleed; blood pressure is actually fairly controlled overall, although not perfect.
Cardiology recommended continuing current medications.
PT recommended acute rehab
-Delirium precautions
-Avoid cerebral hypoperfusion, [employer] SERVICE SPECIALIST suppressants and anticholinergic medications.
-Follow-up TSH, free T4, vit B12
-Outpatient neuropsychological evaluation
#Prolonged QTc
-Avoid additional QTc-prolonging medications
# Acute metabolic encephalopathy, due to acute stroke vs UTI
# Concern for Mild Dementia
Monitor mental status
Urine culture with E coli and Klebsiella
Status post Ceftriaxone
Status post Levaquin
Patient should have follow-up urinalysis and urine culture approximately 2 weeks following the completion of her antibiotic therapy.
Consulted ID, recommendations appreciated, due to resistance pattern of organisms above as well as for best option given patient is on Tikosyn: Macrobid 100 mg BID x 7 days started as per ID
# Acute hypoxic resp insufficiency
Weaned to RA
Pt denies to resp symptoms
CXR without acute disease
Noted wheezing on exam, continue prednisone 40 mg daily x5 days (11/02/23 was Day 1)
Resume patient's home prednisone
# Atrial fib with rapid ventricular response
Off Cardizem drip
Continue CHEMISTRY ACCOUNT MANAGER Cardizem, Lopressor, Tikosyn 125 mcg twice daily
Consulted cardiology about Tikosyn and QTc prolongation with QTc of 513: per cardiology, with patient's baseline abnormalities of right, bundle branch block, left anterior fascicular block and pacemaker, QT can go up to 550
Continue CHEMISTRY ACCOUNT MANAGER Eliquis
# Anemia of chronic disease
Ferrous sulfate continued
Continue to monitor
# FANTASMA , resolved
Creatinine 1.7 -> ... 0.9--->1.0-->1.2-->....-->1.2
Patient's creatinine is at baseline as per nephrology [place] Text conversation on 11/06/23
# Inflammatory arthritis
Continue home prednisone
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
# Coronary artery disease status post CABG
Continue statin
# Essential hypertension
# Type 2 diabetes
# Hyperglycemia
Insulin sliding scale
CHO diet
Consulted Diabetes MEDICINE ASSISTANT, recommendations appreciated: Insulin titrated up
Need to be careful and watch for hypoglycemia as patient's higher dose prednisone is now stopped
# Hyperlipidemia
On statin
# Obesity
# Depression
Continue duloxetine
DVT ppx: resume CHEMISTRY ACCOUNT MANAGER Eliquis
DNR
Dispo: Acute rehab
Anticipated Discharge: 24 - 48 hours
Subjective/Interval History
-
Date of Service: November 06, 2023
Patient was seen and examined. She reported no new symptoms or complaints.
Objective Data
-
Labs:
Laboratory Results
11/06/23
08:01
WBC 13.0 H
Hgb 10.6 L
Hct 33.3 L
Plt Count 286
Sodium 138
Potassium 3.9
Chloride 106
Carbon Dioxide 26
BUN 38 H
Creatinine 1.2 H
Glucose 260 H
Calcium 9.6
Total Bilirubin 0.6
AST 31
ALT 26
Alkaline Phosphatase 68
Vital Signs:
Vital Signs
Temp Pulse Resp BP Pulse Ox
97.8 F 61 16 137/74 96
11/06/23 11:40 11/06/23 11:40 11/06/23 11:40 11/06/23 11:40 11/06/23 11:40
I&O
11/05/23 11/06/23 11/07/23
06:59 06:59 06:59
Intake Total 1320 / 1320
Balance 1320 / 1320
[2023-11-06 17:18] LABS: Glucose - Point of Care 452 mg/dl (70-99)
[2023-11-06 17:52] LABS: Glucose 447 mg/dl (70-99)
[2023-11-06] MEDS: LIPITOR 80 MG PO (17:54)
[2023-11-06] MEDS: PROTONIX 40 MG PO (17:54)
[2023-11-06] MEDS: NOVOLOG FLEXPEN-LOW RESISTANCE 6 UNITS SC (17:54)
[2023-11-06 19:16] LABS: Glucose - Point of Care 471 mg/dl (70-99)
[2023-11-06 19:55] LABS: Glucose 445 mg/dl (70-99)
[2023-11-06] MEDS: NOVOLOG FLEXPEN 15 UNITS SC (20:44)
[2023-11-06 23:00] LABS: Glucose - Point of Care 210 mg/dl (70-99)
[2023-11-07] VITALS (7 sets, daily range): BP systolic 125–171; BP diastolic 54–86; PULSE 63; O2SAT 98; BMI 34.5
[2023-11-07 07:49] LABS: Glucose - Point of Care 138 mg/dl (70-99)
[2023-11-07] MEDS: NOVOLOG FLEXPEN-LOW RESISTANCE SC (07:50)
[2023-11-07] MEDS: FOLVITE 0.800000000000000044 MG PO (07:54)
[2023-11-07] MEDS: FEOSOL 325 MG PO (07:54)
[2023-11-07] MEDS: ELIQUIS 5 MG PO ×2 (07:54→20:59)
[2023-11-07] MEDS: CYMBALTA DELAYED RELEASE 30 MG PO (07:54)
[2023-11-07] MEDS: CLARITIN 10 MG PO (07:54)
[2023-11-07] MEDS: TIKOSYN 125 MCG PO ×2 (07:54→21:01)
[2023-11-07] MEDS: MACROBID 100 MG PO ×2 (07:54→21:01)
[2023-11-07] MEDS: NOVOLOG MIX 70/30 FLEXPEN SC (07:55)
[2023-11-07] MEDS: LOPRESSOR 100 MG PO (07:55)
[2023-11-07] MEDS: CARDIZEM CD 240 MG PO (07:56)
[2023-11-07] MEDS: COZAAR 50 MG PO ×2 (07:56→20:59)
[2023-11-07] MEDS: DELTASONE 2.5 MG PO (07:57)
[2023-11-07 08:09] LABS: % Basophils 0.2 % (0-2); % Eosinophils 0.1 % (0-6); % Immature Granulocytes 3.7 % (0-0.5); % Lymphocytes 12.9 % (20.5-51.1); % Monocytes 7.1 % (1.7-9.3); Absolute Immature Granulocytes 0.5 10^3/uL (0-0.05); Absolute Lymphocytes 1.9 10^3/uL (1.2-3.4); Absolute Neutrophils 10.9 10^3/uL (1.4-6.5); Hematocrit 32.8 % (37.0-47.0); Hemoglobin 10.4 g/dL (12.0-16.0); Mean Corp Hgb Conc. 31.7 g/dL (33.0-37.0); Mean Corpuscular Hgb 28.4 pg (27.0-31.0); Mean Corpuscular Volume 89.6 fL (81.0-99.0); Mean Platelet Volume 11.3 fL (7.4-10.4); Nucleated Red Blood Cells % 0.1 %; Platelet Count 273 10^3/uL (130-400); Red Blood Cell Count 3.66 10^6/uL (4.20-5.40); Red Cell Dist. Width 14.3 % (11.5-14.5); White Blood Cell Count 14.3 10^3/uL (4.8-10.8)
[2023-11-07 08:13] LABS: ALT (SGPT) 20 U/L (0-35); AST (SGOT) 22 U/L (14-36); Albumin 3.1 g/dl (3.5-5.0); Alkaline Phosphatase 61 U/L (38-126); Blood Urea Nitrogen 40 mg/dl (7-17); Calcium 9.8 mg/dl (8.4-10.2); Carbon Dioxide 28 mmol/L (22-30); Chloride 104 mmol/L (98-107); Estimated Creatinine Clearance 36 ml/min; Glucose 145 mg/dl (70-99); Potassium 3.8 mmol/L (3.5-5.1); Sodium 139 mmol/L (135-145); Total Bilirubin 0.6 mg/dl (0.2-1.3); eGFR 45.48
--- NOTE | 2023-11-07 08:29 | PN.DE.MGMTRT ---
Insulin Management
- -
11/03/2023: Diabetes Management Consult
82 year old female admitted on 10/30/23 for a small intraparenchymal hemorrhage in the right thalamus.
PMH includes: HTN, A-Fib, CAD and T2DM, current A1C 7.0%, improved from 7.9% on .
Pt was taking Humalog 75/25 mix, 30units in AM and 25 units in PM.
Pt developed acute hypoxic Resp insufficiency on 11/02 and was started on oral steroids- Pred 40mg daily-->Hyperglycemia.
Current Insulin regimen includes: 70/30 BID, 15 units in AM and 12 units in PM.
Glucose has remained elevated, FBG 283 this AM, Premeal 150-369, requiring 1-5 units of additional corrective insulin.
Pt has received 15 units of her AM dose, will give additional 10 units NOW and increase AM dose to 25 units.
Increase PM dose to 20 units. Will closely follow and adjust insulin regimen as necessary
11/04/2023 Diabetes Management Follow up
Patient now on prednisone 40 mg daily. Home dose of 75/25 recorded in chart as 30 units in AM and 25 units with dinner. 70/30 insulin increased yesterday, glucose remained > 300. Will increase AM 70/30 dose to 30 units and dinner dose to 26
units. Will follow for further needed adjustments
11/05/2023 Diabetes Management Follow up
70/30 doses increased yesterday, first dose of 30 units given this AM. Pre dinner 70/30 increased to 26 units, no HS glucose obtained. Fasting glucose this AM 106, 30 units 70/30 administered. Will make no further changes to insulin today. Will
follow.
11/06/2023 Diabetes Management Follow up
Glucose @ HS 266, fasting this AM 246. Will increase pre dinner 70/30 to 30 units, continue AM dose 30 units. Will continue to follow for further needed adjustments.
11/07/2023: Diabetes Management F/U:
Steroids tapered down to home dose of 2.5mg Q2D yesterday. Glucose improved overnight, FBG 145 this AM.
Will reduce evening 70/30 dose to her OP dose of 25units. Cont AM dose of 30 units.
Will closely follow and make further adjustment if necessary
Diabetes History
- -
Type of Diabetes: 2 requiring insulin
Pre-Admission Diabetes Regimen
11/06/23 11/07/23
08:01 07:26
Creatinine 1.2 H 1.2 H
Lab Results
Hemoglobin A1c 7.0 % (4.0-5.6) H 10/30/23 03:52
Insulin Pump Settings
IP Diabetes Regimen
11/06/23 11/06/23 11/06/23
08:01 13:01 17:16
Glucose 260 H
POC Glucose 349 H 452 H*
11/06/23 11/06/23 11/06/23
17:30 19:15 19:30
Glucose 447 H 445 H
POC Glucose 471 H*
11/06/23 11/07/23 11/07/23
22:57 07:26 07:48
Glucose 145 H
POC Glucose 210 H 138 H
Meal type: Lunch
Meal type: Breakfast
Amount consumed: 100%
Amount consumed: 100%
Patient Education
[2023-11-07] MEDS: NOVOLOG MIX 70/30 FLEXPEN 30 UNITS SC (08:52)
--- NOTE | 2023-11-07 08:57 | W.PN.CD ---
Today's Communication / Plan
-
-Patient has labile hypertension.
-Will add hydralazine 25 mg TID to try to better achieve recommended blood pressure as per Neurology (SBP less than 140 mmHg); can uptitrate as needed to desired effect.
-Continue diltiazem CD, losartan, and Lasix.
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
-Recommend outpatient ischemic evaluation (stress test).
-Continue atorvastatin.
-Will change to metoprolol succinate 100 mg daily.
-Will add will add Jardiance 10 mg daily.
-Further GDMT is limited by renal dysfunction.
-Will make appointment for patient to follow-up with Cardiology as an outpatient; no further recommendation at this time.
Impression / Plan
-
CVA - small intraparenchymal hemorrhage of the right thalamus.
- per neurology and neurosurgery.
Prolonged QTc - remains stable.
- continue on dofetilide 125 mcg twice daily.
- avoiding meds that prolong the QT interval. received one dose of Levaquin this admit.
- Atrial paced on telemetry; remains stable.
HTN - Patient has labile hypertension.
-Will add hydralazine 25 mg TID to try to better achieve recommended blood pressure as per Neurology (SBP less than 140 mmHg); can uptitrate as needed to desired effect.
-Continue diltiazem CD, metoprolol tartrate, losartan, and Lasix.
Atrial fibrillation - paroxysmal.
- Oral Anticoagulation: Continue Eliquis 5 mg BID.
- [id number]: Score 9 (CHF, HTN, age 75 or more, Diabetes Mellitus, prior Stroke/TIA, Vascular disease, female gender).
CAD s/p CABG:
-Currently stable.
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
-Recommend outpatient ischemic evaluation (stress test).
-Continue atorvastatin.
-Will change to metoprolol succinate 100 mg daily.
-Will add will add Jardiance 10 mg daily.
-Further GDMT is limited by renal dysfunction.
CKD/FANTASMA -creatinine is relatively stable at baseline.
Prior CVA (2016) - stable.
Dyslipidemia, stable on atorvastatin
Type 2 diabetes mellitus -management as per hospitalist
Physical Exam
Vital Signs/Labs
Vital Signs
Temp Pulse Resp BP Pulse Ox
97.5 F 62 18 150/69 96
11/07/23 03:20 11/07/23 03:20 11/07/23 03:20 11/07/23 03:20 11/07/23 03:20
11/06/23 11/07/23 11/08/23
06:59 06:59 06:59
Actual Weight 83.461 kg 82.781 kg
11/07/23 07:26
11/07/23 07:26
Magnesium 1.7 mg/dl (1.6-2.3) 10/29/23 19:29
Triglycerides 90 mg/dl (10-149) 10/30/23 03:52
LDL Cholesterol, Calc 42 mg/dl 10/30/23 03:52
VLDL Cholesterol, Calc 18 mg/dl (0-30) 10/30/23 03:52
HDL Cholesterol 35 mg/dl 10/30/23 03:52
Physical Exam
Constitutional: No acute distress and Comfortable
EENT: Anicteric
Cardiovascular: Rhythm & rate is regular, Pedal edema is absent, Systolic murmur present (09/27) and S1S2 is normal
Respiratory: Respiratory effort normal and Lungs clear to auscul.
GI: Soft
Neuro/Psych: AO x 3
Other: Skin (Warm, dry, intact)
Data Reviewed
-
Date of Service: November 07, 2023
EKG: Tracing Personally Visualized and interpreted (A-paced rhythm)
Echo: Report Reviewed by me (EF 40-45%)
Labs: Labs Reviewed by me
[2023-11-07] MEDS: SENOKOT 8.59999999999999964 MG PO ×2 (10:16→20:59)
[2023-11-07] MEDS: JARDIANCE 10 MG PO (10:17)
[2023-11-07] MEDS: COLACE 100 MG PO ×2 (10:17→20:59)
[2023-11-07] MEDS: APRESOLINE 25 MG PO ×3 (10:17→21:00)
[2023-11-07] MEDS: MIRALAX 17 GRAMS PO (10:17)
--- NOTE | 2023-11-07 10:41 | CM ---
CM met with patient, discussed plan for [facility] today. Per [facility], patient needs to have BM before coming, TT sent to nurse. CM spoke with patients son, Manuel, JIMMIE reviewed, will email to [email or web address]. CM will update son with time patient is
going to [facility]. CM will continue to follow for discharge planning needs.
Plan; [facility], needs BM.
[2023-11-07 12:28] LABS: Glucose - Point of Care 199 mg/dl (70-99)
[2023-11-07] MEDS: NOVOLOG FLEXPEN-LOW RESISTANCE 1 UNITS SC (13:41)
--- NOTE | 2023-11-07 14:59 | W.PN.HOSP.TC ---
Today's Communication/Plan
-
Awaiting patient to have a bowel movement before [facility] dejuan take her
Assessment / Plan
Assessment / Plan
Physical Exam
General: Well Developed, Well Nourished, No Apparent Distress, Comfortable and Conversant
HEENT: Normocephalic, Atraumatic, Nose Appears Normal and Ears Appear Normal
Respiratory: Clear to Auscultation, Wheezes and Non Labored Respirations
Cardiac: Regular Rhythm and S1/S2
GI: Soft, Nontender, Nondistended and Normal Bowel Sounds
Skin: Warm and Dry
Neuro: Awake, Alert and Nonfocal/Grossly Intact
Psych: Calm and Apparent Dementia
Assessment/Plan
HPI: 82 yo woman with hx atrial fibrillation, CAD, DM presented to the ER for fatigue over past several days with CT Head showing small intraparenchymal hemorrhage in the right thalamus.
Brought in by son per her PCP recommendation.� She continues to feel fatigued but mildly improved.
CT HEAD:
Small intraparenchymal hemorrhage in the right thalamus. Mild atrophy
# Lethargy likely due to small intraparenchymal hemorrhage in the right thalamus.
# Hemorrhagic stroke with small bleed in the right thalamus
# Concern for mild dementia
repeat CT Head with stable small acute right thalamic hemorrhage.
MRI brain with corresponding signal abnormality in the right thalamus as seen on CT head
Okay to continue AVIATION SAFETY INSPECTOR Eliquis per neurology
Cont Atorvastatin, LDL at 42
A1c 7.0%
Appreciate Neurology and neurosurgery input.
Maintain SBP less than 140 mmHg: added Losartan on 11/03/23 to existing antihypertensive regimen
But patient has labile hypertension
Cardiology recommended continuing current medications, and adding: Hydralazine 25 mg TID for better control of blood pressure
PT recommended acute rehab
-Delirium precautions
-Avoid cerebral hypoperfusion, ROOFER APPRENTICE suppressants and anticholinergic medications.
-Follow-up TSH, free T4, vit B12
-Outpatient neuropsychological evaluation
#Prolonged QTc
-Avoid additional QTc-prolonging medications
# Acute metabolic encephalopathy, due to acute stroke vs UTI
# Concern for Mild Dementia
Monitor mental status
Urine culture with E coli and Klebsiella
Status post Ceftriaxone
Status post Levaquin
Patient should have follow-up urinalysis and urine culture approximately 2 weeks following the completion of her antibiotic therapy.
Consulted ID, recommendations appreciated, due to resistance pattern of organisms above as well as for best option given patient is on Tikosyn: Macrobid 100 mg BID x 7 days started as per ID
# Acute hypoxic resp insufficiency
Weaned to RA
Pt denies to resp symptoms
CXR without acute disease
Noted wheezing on exam, status post prednisone 40 mg daily x5 days (11/02/23 was Day 1)
Resumed patient's home prednisone
# Atrial fib with rapid ventricular response
Off Cardizem drip
Continue AVIATION SAFETY INSPECTOR Cardizem, Lopressor, Tikosyn 125 mcg twice daily
Consulted cardiology about Tikosyn and QTc prolongation with QTc of 513: per cardiology, with patient's baseline abnormalities of right, bundle branch block, left anterior fascicular block and pacemaker, QT can go up to 550
Continue AVIATION SAFETY INSPECTOR Eliquis
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
-Found on echocardiogram this admission
-Outpatient ischemic evaluation (stress test)
-Patient's Toprol XL increased to 100 mg daily
-Jardiance 10 mg daily added
# Anemia of chronic disease
Ferrous sulfate continued
Continue to monitor
# FANTASMA , resolved
Creatinine 1.7 -> ... 0.9--->1.0-->1.2-->....-->1.2
Patient's creatinine is at baseline as per nephrology [place] Text conversation on 11/06/23
# Inflammatory arthritis
Continue home prednisone
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
# Coronary artery disease status post CABG
Continue statin
# Essential hypertension
# Type 2 diabetes
# Hyperglycemia
Insulin sliding scale
CHO diet
Consulted Diabetes HOME CARE COORDINATOR, recommendations appreciated: Insulin titrated up
Need to be careful and watch for hypoglycemia as patient's higher dose prednisone is now stopped and home prednisone resumed (see Diabetes HOME CARE COORDINATOR notes)
# Hyperlipidemia
On statin
# Obesity
# Depression
Continue duloxetine
DVT ppx: resume AVIATION SAFETY INSPECTOR Eliquis
DNR
Dispo: Acute rehab
Anticipated Discharge: Within 24 hours
Subjective/Interval History
-
Date of Service: November 07, 2023
Patient was seen and examined. No new symptoms were reported by the patient.
Objective Data
-
Labs:
Laboratory Results
11/07/23
07:26
WBC 14.3 H
Hgb 10.4 L
Hct 32.8 L
Plt Count 273
Sodium 139
Potassium 3.8
Chloride 104
Carbon Dioxide 28
BUN 40 H
Creatinine 1.2 H
Glucose 145 H
Calcium 9.8
Total Bilirubin 0.6
AST 22
ALT 20
Alkaline Phosphatase 61
Vital Signs:
Vital Signs
Temp Pulse Resp BP Pulse Ox
97.6 F 59 18 154/65 95
11/07/23 11:00 11/07/23 11:00 11/07/23 11:00 11/07/23 11:00 11/07/23 11:00
I&O
11/06/23 11/07/23 11/08/23
06:59 06:59 06:59
Intake Total 1320 / 1320 480 / 480
Balance 1320 / 1320 480 / 480
--- NOTE | 2023-11-07 15:52 | W.PN.ID1 ---
Date of Service
Date of Service: November 07, 2023
Today's Communication
Continue antibiotics.
Assessment / Plan
Complicated urinary tract infection
- Cultures with E. coli and Klebsiella aerogenes
Leukocytosis
- Suspect steroid effect
HTN
CAD
Chronic vertigo
Hx CVA
Asthma
CHF
Dyslipidemia
Hx UTIs
DM
CKD
Recommendations:
Continue Macrobid 100 mg p.o. twice daily (d#5) to complete 7 days.
Patient should have follow-up urinalysis and urine culture approximately 2 weeks following the completion of her antibiotic therapy.
����������������������������������������������������������
Chief Complaint
-: UTI
Subjective / Review of Systems
Review of Systems: No Fever and No Chills
Vital Signs / Physical Exam
Vital Signs
Vital Signs
Temp Pulse Resp BP Pulse Ox
97.6 F 59 18 154/65 95
11/07/23 11:00 11/07/23 11:00 11/07/23 11:00 11/07/23 11:00 11/07/23 11:00
Physical Exam
Physical Exam:
Constitutional: No Acute Distress, Comfortable and Non-toxic
Cardiovascular: S1/S2; Negative S3/S4
Pulmonary: Non Labored
Gastrointestinal: Soft and Non Tender
Neurological: Awake and Alert
Objective Data
Lab Data
Lab Results
11/07/23 07:26
11/07/23 07:26
Estimated Creat Clear 36 ml/min 11/07/23 07:26
Total Bilirubin 0.6 mg/dl (0.2-1.3) 11/07/23 07:26
AST 22 U/L (14-36) 11/07/23 07:26
ALT 20 U/L (0-35) 11/07/23 07:26
Alkaline Phosphatase 61 U/L (38-126) 11/07/23 07:26
Most recent labs reviewed.
Micro Results:
10/31/23 09:17 Urine Culture - Final
Urine Escherichia coli
Klebsiella aerogenes
Imaging:
10/31/2023 MRI brain: Small focus of signal abnormality with susceptibility blooming within the right thalamus compatible with a small acute hemorrhage involving the right thalamus. Moderate diffuse atrophy noted. Mild periventricular leukomalacia
[2023-11-07] MEDS: LASIX 40 MG PO (17:36)
[2023-11-07] MEDS: LIPITOR 80 MG PO (17:36)
[2023-11-07] MEDS: PROTONIX 40 MG PO (17:36)
[2023-11-07 18:25] LABS: Glucose - Point of Care 212 mg/dl (70-99)
[2023-11-07] MEDS: NOVOLOG FLEXPEN-LOW RESISTANCE 2 UNITS SC (18:26)
[2023-11-07] MEDS: NOVOLOG MIX 70/30 FLEXPEN 25 UNITS SC (18:26)
[2023-11-07] MEDS: TOPROL XL 100 MG PO (21:01)
[2023-11-07 22:09] LABS: Glucose - Point of Care 171 mg/dl (70-99)
[2023-11-08] VITALS (7 sets, daily range): BP systolic 111–139; BP diastolic 45–71
--- NOTE | 2023-11-08 07:07 | W.PN.HOSP.TC ---
Today's Communication/Plan
-
Holding discharge at this time due to Elevation Cr and White count
cont nitrofurantoin while monitoring renal function
Glycemic control
Blood pressure control
Assessment / Plan
Assessment / Plan
Physical Exam
General: Well Developed, Well Nourished, No Apparent Distress, Comfortable and Conversant
HEENT: Normocephalic, Atraumatic, Nose Appears Normal and Ears Appear Normal
Respiratory: Clear to Auscultation, Wheezes and Non Labored Respirations
Cardiac: Regular Rhythm and S1/S2
GI: Soft, Nontender, Nondistended and Normal Bowel Sounds
Skin: Warm and Dry
Neuro: Awake, Alert and Nonfocal/Grossly Intact
Psych: Calm and Apparent Dementia
Assessment/Plan
HPI: 82 yo woman with hx atrial fibrillation, CAD, DM presented to the ER for fatigue over past several days with CT Head showing small intraparenchymal hemorrhage in the right thalamus.
Brought in by son per her PCP recommendation.� She continues to feel fatigued but mildly improved.
CT HEAD:
Small intraparenchymal hemorrhage in the right thalamus. Mild atrophy
# Lethargy likely due to small intraparenchymal hemorrhage in the right thalamus.
# Hemorrhagic stroke with small bleed in the right thalamus
# Concern for mild dementia
repeat CT Head with stable small acute right thalamic hemorrhage.
MRI brain with corresponding signal abnormality in the right thalamus as seen on CT head
Okay to continue KETTLE OPERATOR HEAD Eliquis per neurology
Cont Atorvastatin, LDL at 42
A1c 7.0%
Appreciate Neurology and neurosurgery input.
Maintain SBP less than 140 mmHg: added Losartan on 11/03/23 to existing antihypertensive regimen
But patient has labile hypertension
Cardiology recommended continuing current medications, and adding: Hydralazine 25 mg TID for better control of blood pressure
PT recommended acute rehab
-Delirium precautions
-Avoid cerebral hypoperfusion, ARCHITECTURAL ADMINISTRATIVE ASSISTANT suppressants and anticholinergic medications.
-TSH B12 wnl
-Outpatient neuropsychological evaluation
#Prolonged QTc
-Avoid additional QTc-prolonging medications
# Acute metabolic encephalopathy, due to acute stroke vs UTI
# Concern for Mild Dementia
Monitor mental status
Urine culture with E coli and Klebsiella
Status post Ceftriaxone
Status post Levaquin
Patient should have follow-up urinalysis and urine culture approximately 2 weeks following the completion of her antibiotic therapy.
Consulted ID, recommendations appreciated, due to resistance pattern of organisms above as well as for best option given patient is on Tikosyn: Macrobid 100 mg BID x 7 days started as per ID
# Acute hypoxic resp insufficiency
Weaned to RA
Pt denies to resp symptoms
CXR without acute disease
Noted wheezing on exam, completed prednisone 40 mg daily x5 days
Resumed patient's home prednisone 2.5 mg Q2D
# Atrial fib with rapid ventricular response
Off Cardizem drip
Continue KETTLE OPERATOR HEAD Cardizem, Lopressor, Tikosyn 125 mcg twice daily
Consulted cardiology about Tikosyn and QTc prolongation with QTc of 513: per cardiology, with patient's baseline abnormalities of right, bundle branch block, left anterior fascicular block and pacemaker, QT can go up to 550
Continue KETTLE OPERATOR HEAD Eliquis
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
-Found on echocardiogram this admission
-Outpatient ischemic evaluation (stress test)
-Patient's Toprol XL increased to 100 mg daily
-Jardiance 10 mg daily added
# Anemia of chronic disease
Ferrous sulfate continued
Continue to monitor
# FANTASMA on CKD III
Creatinine 1.7 since improved to baseline likely 1.0-1.2
slight increase again 1.4
# Inflammatory arthritis
Continue home prednisone
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
# Coronary artery disease status post CABG
Continue statin
# Essential hypertension
# Type 2 diabetes
# Hyperglycemia
Insulin sliding scale
CHO diet
Consulted Diabetes CHILD CARE COOK, recommendations appreciated
cont insulin regimen, titrate as necessary
Jardiance
# Hyperlipidemia
On statin
# Obesity
# Depression
Continue duloxetine
DVT ppx: Eliquis
DNR
Dispo: Acute rehab
discussed with patient and her daughter Sasha
I spent a total of 55 minutes with the patient or on the floor. More than 50% of this time involved counseling and coordination of care.
Anticipated Discharge: 24 - 48 hours
Subjective/Interval History
-
Date of Service: November 08, 2023
Sitting up comfortable in chair. No acute distress. Reports fatigue. Constipation resolved.
Objective Data
-
Labs:
Laboratory Results
11/08/23
06:46
WBC Pending
Hgb Pending
Hct Pending
Plt Count Pending
Sodium Pending
Potassium Pending
Chloride Pending
Carbon Dioxide Pending
BUN Pending
Creatinine Pending
Glucose Pending
Calcium Pending
Total Bilirubin Pending
AST Pending
ALT Pending
Alkaline Phosphatase Pending
Vital Signs:
Vital Signs
Temp Pulse Resp BP Pulse Ox
97.6 F 61 16 119/58 92
11/08/23 03:32 11/08/23 03:32 11/08/23 03:32 11/08/23 03:32 11/08/23 03:32
I&O
11/07/23 11/08/23 11/09/23
06:59 06:59 06:59
Intake Total 480 / 480 960 / 960
Balance 480 / 480 960 / 960
[2023-11-08 07:34] LABS: Glucose - Point of Care 156 mg/dl (70-99)
[2023-11-08 07:54] LABS: % Basophils 0.4 % (0-2); % Eosinophils 1.2 % (0-6); % Immature Granulocytes 3.5 % (0-0.5); % Monocytes 5.5 % (1.7-9.3); % Neutrophils 71.4 % (42.2-75.2); Absolute Basophils 0.1 10^3/uL (0-0.2); Absolute Eosinophils 0.2 10^3/uL (0-0.7); Absolute Immature Granulocytes 0.7 10^3/uL (0-0.05); Absolute Lymphocytes 3.3 10^3/uL (1.2-3.4); Absolute Neutrophils 13.3 10^3/uL (1.4-6.5); Hematocrit 38.4 % (37.0-47.0); Hemoglobin 12.3 g/dL (12.0-16.0); Mean Corpuscular Hgb 28.5 pg (27.0-31.0); Mean Corpuscular Volume 88.9 fL (81.0-99.0); Mean Platelet Volume 11.3 fL (7.4-10.4); Nucleated Red Blood Cells % 0.1 %; Platelet Count 291 10^3/uL (130-400); Red Blood Cell Count 4.32 10^6/uL (4.20-5.40); Red Cell Dist. Width 14.6 % (11.5-14.5); White Blood Cell Count 18.6 10^3/uL (4.8-10.8)
[2023-11-08 08:12] LABS: ALT (SGPT) 24 U/L (0-35); AST (SGOT) 29 U/L (14-36); Albumin 3.6 g/dl (3.5-5.0); Alkaline Phosphatase 77 U/L (38-126); Blood Urea Nitrogen 43 mg/dl (7-17); Calcium 9.8 mg/dl (8.4-10.2); Carbon Dioxide 30 mmol/L (22-30); Chloride 102 mmol/L (98-107); Estimated Creatinine Clearance 31 ml/min; Glucose 155 mg/dl (70-99); Potassium 4.2 mmol/L (3.5-5.1); Sodium 139 mmol/L (135-145); Total Bilirubin 0.7 mg/dl (0.2-1.3); Total Protein 6.8 g/dl (6.3-8.2)
[2023-11-08] MEDS: NOVOLOG MIX 70/30 FLEXPEN 30 UNITS SC (09:43)
[2023-11-08] MEDS: MIRALAX 17 GRAMS PO (09:44)
[2023-11-08] MEDS: CYMBALTA DELAYED RELEASE 30 MG PO (09:44)
[2023-11-08] MEDS: TOPROL XL 100 MG PO (09:45)
[2023-11-08] MEDS: CLARITIN 10 MG PO (09:45)
[2023-11-08] MEDS: MACROBID 100 MG PO ×2 (09:45→20:56)
[2023-11-08] MEDS: TIKOSYN 125 MCG PO ×2 (09:45→20:57)
[2023-11-08] MEDS: SENOKOT 8.59999999999999964 MG PO ×2 (09:45→20:56)
[2023-11-08] MEDS: CARDIZEM CD 240 MG PO (09:46)
[2023-11-08] MEDS: COZAAR 50 MG PO ×2 (09:47→20:47)
[2023-11-08] MEDS: APRESOLINE 25 MG PO ×3 (09:47→21:05)
[2023-11-08] MEDS: JARDIANCE 10 MG PO (09:47)
[2023-11-08] MEDS: FOLVITE 0.800000000000000044 MG PO (09:47)
[2023-11-08] MEDS: FEOSOL 325 MG PO (09:47)
[2023-11-08] MEDS: NOVOLOG FLEXPEN-LOW RESISTANCE 1 UNITS SC ×2 (09:48→17:57)
[2023-11-08] MEDS: COLACE 100 MG PO ×2 (09:48→20:46)
[2023-11-08] MEDS: ELIQUIS 5 MG PO ×2 (09:49→20:47)
[2023-11-08 12:58] LABS: Glucose - Point of Care 298 mg/dl (70-99)
[2023-11-08] MEDS: NOVOLOG FLEXPEN-LOW RESISTANCE 3 UNITS SC (13:43)
[2023-11-08 13:53] LABS: TSH Reflex To Free T4 3.34 uIU/ml (0.47-4.68)
[2023-11-08 14:12] LABS: Vitamin B12 868 pg/ml (239-931)
--- NOTE | 2023-11-08 16:13 | CM ---
Per Hospitalist, patient not stable for discharge to [facility]. CM left voicemail for son, Gabriel, to update. CM sent TT to [facility] Liaison, with update. CM will continue to follow for discharge planning needs.
Plan; [facility] when stable.
[2023-11-08 17:28] LABS: Glucose - Point of Care 151 mg/dl (70-99)
[2023-11-08] MEDS: NOVOLOG MIX 70/30 FLEXPEN 25 UNITS SC (18:00)
[2023-11-08] MEDS: PROTONIX 40 MG PO (18:02)
[2023-11-08] MEDS: LIPITOR 80 MG PO (18:02)
[2023-11-08 21:17] LABS: Glucose - Point of Care 218 mg/dl (70-99)
[2023-11-09] VITALS (9 sets, daily range): BP systolic 97–155; BP diastolic 50–65; PULSE 62; O2SAT 94
[2023-11-09 07:16] LABS: % Basophils 0.3 % (0-2); % Eosinophils 1.8 % (0-6); % Immature Granulocytes 3.5 % (0-0.5); % Lymphocytes 16.7 % (20.5-51.1); % Monocytes 5.1 % (1.7-9.3); % Neutrophils 72.6 % (42.2-75.2); Absolute Basophils 0.1 10^3/uL (0-0.2); Absolute Eosinophils 0.3 10^3/uL (0-0.7); Absolute Immature Granulocytes 0.7 10^3/uL (0-0.05); Absolute Lymphocytes 3.1 10^3/uL (1.2-3.4); Absolute Monocytes 0.9 10^3/uL (0.1-0.6); Absolute Neutrophils 13.4 10^3/uL (1.4-6.5); Hemoglobin 12.4 g/dL (12.0-16.0); Mean Corp Hgb Conc. 31.8 g/dL (33.0-37.0); Mean Corpuscular Hgb 28.3 pg (27.0-31.0); Mean Platelet Volume 11.2 fL (7.4-10.4); Nucleated Red Blood Cells % 0 %; Platelet Count 270 10^3/uL (130-400); Red Blood Cell Count 4.38 10^6/uL (4.20-5.40); Red Cell Dist. Width 14.8 % (11.5-14.5); White Blood Cell Count 18.5 10^3/uL (4.8-10.8)
--- NOTE | 2023-11-09 07:26 | W.PN.HOSP.TC ---
Today's Communication/Plan
-
Holding discharge at this time due to Elevation Cr and White count Episode diarrhea vomiting with associate hypotension, improving with IVF one time hold lasix and hydralazine
IVF support
stool studies if diarrhea repeats
Nitrofurantoin completed
Glycemic control
Blood pressure control, cont antihypertensives with holding parameters
Assessment / Plan
Assessment / Plan
Physical Exam
General: Well Developed, Well Nourished, No Apparent Distress, Comfortable and Conversant
HEENT: Normocephalic, Atraumatic, Nose Appears Normal and Ears Appear Normal
Respiratory: Clear to Auscultation, Wheezes and Non Labored Respirations
Cardiac: Regular Rhythm and S1/S2
GI: Soft, Nontender, Nondistended and Normal Bowel Sounds
Skin: Warm and Dry
Neuro: Awake, Alert and Nonfocal/Grossly Intact
Psych: Calm and Apparent Dementia
Assessment/Plan
HPI: 82 yo woman with hx atrial fibrillation, CAD, DM presented to the ER for fatigue over past several days with CT Head showing small intraparenchymal hemorrhage in the right thalamus.
Brought in by son per her PCP recommendation.� She continues to feel fatigued but mildly improved.
CT HEAD:
Small intraparenchymal hemorrhage in the right thalamus. Mild atrophy
# Lethargy likely due to small intraparenchymal hemorrhage in the right thalamus.
# Hemorrhagic stroke with small bleed in the right thalamus
# Concern for mild dementia
repeat CT Head with stable small acute right thalamic hemorrhage.
MRI brain with corresponding signal abnormality in the right thalamus as seen on CT head
Okay to continue CERTIFIED MEDICAL RECORDS CODER Eliquis per neurology
Cont Atorvastatin, LDL at 42
A1c 7.0%
Appreciate Neurology and neurosurgery input.
Maintain SBP less than 140 mmHg: added Losartan on 11/03/23 to existing antihypertensive regimen
But patient has labile hypertension
Cardiology recommended continuing current medications, and adding: Hydralazine 25 mg TID for better control of blood pressure
PT recommended acute rehab
-Delirium precautions
-Avoid cerebral hypoperfusion, ELECTRONIC SPECIALIST suppressants and anticholinergic medications.
-TSH B12 wnl
-Outpatient neuropsychological evaluation
#Prolonged QTc
-Avoid additional QTc-prolonging medications
# Acute metabolic encephalopathy, due to acute stroke vs UTI
# Concern for Mild Dementia
Monitor mental status
Urine culture with E coli and Klebsiella
Status post Ceftriaxone
Status post Levaquin
Patient should have follow-up urinalysis and urine culture approximately 2 weeks following the completion of her antibiotic therapy.
Consulted ID, recommendations appreciated, due to resistance pattern of organisms above as well as for best option given patient is on Tikosyn: Macrobid 100 mg BID x 7 days started as per ID since completed
# Acute hypoxic resp insufficiency
Weaned to RA
Pt denies to resp symptoms
CXR without acute disease
Noted wheezing on exam, completed prednisone 40 mg daily x5 days
Resumed patient's home prednisone 2.5 mg Q2D
# Atrial fib with rapid ventricular response
Off Cardizem drip
Continue CERTIFIED MEDICAL RECORDS CODER Cardizem, Lopressor, Tikosyn 125 mcg twice daily
Consulted cardiology about Tikosyn and QTc prolongation with QTc of 513: per cardiology, with patient's baseline abnormalities of right, bundle branch block, left anterior fascicular block and pacemaker, QT can go up to 550
Continue CERTIFIED MEDICAL RECORDS CODER Eliquis
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
-Found on echocardiogram this admission
-Outpatient ischemic evaluation (stress test)
-Patient's Toprol XL increased to 100 mg daily
-Jardiance 10 mg daily added
# Anemia of chronic disease
Ferrous sulfate continued
Continue to monitor
# FANTASMA on CKD III
Creatinine 1.7 since improved to baseline likely 1.0-1.2
slight increase again 1.4 1.5
# Inflammatory arthritis
Continue home prednisone
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
# Coronary artery disease status post CABG
Continue statin
# Essential hypertension
# Type 2 diabetes
# Hyperglycemia
Insulin sliding scale
CHO diet
Consulted Diabetes FENDER MECHANIC APPRENTICE, recommendations appreciated
cont insulin regimen, titrate as necessary
Jardiance
# Hyperlipidemia
On statin
# Obesity
# Depression
Continue duloxetine
DVT ppx: Eliquis
DNR
Dispo: Acute rehab
I spent a total of 57 minutes with the patient or on the floor. More than 50% of this time involved counseling and coordination of care.
Anticipated Discharge: Within 24 hours
Subjective/Interval History
-
Date of Service: November 09, 2023
Episode hypotension with associate nausea vomiting diarrhea. Improved with IVF hold Hydralazine and lasix
Objective Data
-
Labs:
Laboratory Results
11/09/23
06:50
WBC 18.5 H
Hgb 12.4
Hct 39.0
Plt Count 270
Sodium Pending
Potassium Pending
Chloride Pending
Carbon Dioxide Pending
BUN Pending
Creatinine Pending
Glucose Pending
Calcium Pending
Total Bilirubin Pending
AST Pending
ALT Pending
Alkaline Phosphatase Pending
Vital Signs:
Vital Signs
Temp Pulse Resp BP Pulse Ox
97.7 F 61 16 131/65 95
11/09/23 03:00 11/09/23 03:00 11/09/23 03:00 11/09/23 03:00 11/09/23 03:00
I&O
11/08/23 11/09/23 11/10/23
06:59 06:59 06:59
Intake Total 960 / 960 1380 / 1380
Balance 960 / 960 1380 / 1380
[2023-11-09 07:27] LABS: ALT (SGPT) 22 U/L (0-35); AST (SGOT) 28 U/L (14-36); Albumin 3.4 g/dl (3.5-5.0); Alkaline Phosphatase 73 U/L (38-126); Blood Urea Nitrogen 46 mg/dl (7-17); Calcium 9.5 mg/dl (8.4-10.2); Carbon Dioxide 26 mmol/L (22-30); Chloride 105 mmol/L (98-107); Estimated Creatinine Clearance 29 ml/min; Glucose 101 mg/dl (70-99); Potassium 3.4 mmol/L (3.5-5.1); Sodium 139 mmol/L (135-145); Total Bilirubin 0.7 mg/dl (0.2-1.3); Total Protein 6.5 g/dl (6.3-8.2); eGFR 34.79
[2023-11-09 08:15] LABS: Glucose - Point of Care 126 mg/dl (70-99)
[2023-11-09] MEDS: MIRALAX 17 GRAMS PO (08:21)
[2023-11-09] MEDS: COLACE 100 MG PO (08:22)
[2023-11-09] MEDS: CLARITIN 10 MG PO (08:23)
[2023-11-09] MEDS: APRESOLINE 25 MG PO ×2 (08:23→22:49)
[2023-11-09] MEDS: TIKOSYN 125 MCG PO ×2 (08:23→20:16)
[2023-11-09] MEDS: CARDIZEM CD 240 MG PO (08:23)
[2023-11-09] MEDS: COZAAR 50 MG PO ×2 (08:23→20:17)
[2023-11-09] MEDS: NOVOLOG FLEXPEN-LOW RESISTANCE SC ×2 (08:24→11:53)
[2023-11-09] MEDS: ELIQUIS 5 MG PO ×2 (08:24→20:16)
[2023-11-09] MEDS: FEOSOL 325 MG PO (08:25)
[2023-11-09] MEDS: SENOKOT 8.59999999999999964 MG PO (08:25)
[2023-11-09] MEDS: CYMBALTA DELAYED RELEASE 30 MG PO (08:37)
[2023-11-09] MEDS: MACROBID 100 MG PO (08:37)
[2023-11-09] MEDS: FOLVITE 0.800000000000000044 MG PO (08:38)
[2023-11-09] MEDS: TOPROL XL 100 MG PO (08:38)
[2023-11-09] MEDS: JARDIANCE 10 MG PO (08:38)
[2023-11-09] MEDS: DELTASONE 2.5 MG PO (08:39)
[2023-11-09] MEDS: NOVOLOG MIX 70/30 FLEXPEN 30 UNITS SC (08:41)
[2023-11-09 11:24] LABS: Glucose - Point of Care 140 mg/dl (70-99)
--- NOTE | 2023-11-09 15:23 | CM ---
Patient seen bedside with son, Gabriel. Gabriel provided CM with POA and Advanced Directive Forms, CM will bring to Medical Records to scan in. IMM signed, placed in patients chart. CM will continue to follow for discharge planning needs.
Plan; [facility] when stable.
[2023-11-09] MEDS: XOPENEX 0.63 MG INHALANT SOLUTION 0.630000000000000004 MG INH (15:47)
[2023-11-09 16:35] LABS: Glucose - Point of Care 260 mg/dl (70-99)
[2023-11-09] MEDS: APRESOLINE PO (16:36)
[2023-11-09] MEDS: NSS 500 IV (17:03)
[2023-11-09] MEDS: NOVOLOG FLEXPEN-LOW RESISTANCE 3 UNITS SC (17:03)
[2023-11-09] MEDS: NOVOLOG MIX 70/30 FLEXPEN 25 UNITS SC (17:15)
[2023-11-09] MEDS: PROTONIX 40 MG PO (17:15)
[2023-11-09] MEDS: LIPITOR 80 MG PO (17:15)
[2023-11-09 18:16] LABS: Lactic Acid 2.2 mmol/L (0.7-2.0)
[2023-11-09] MEDS: NSS 1000 IV (19:04)
[2023-11-09] MEDS: COLACE PO (20:15)
[2023-11-09] MEDS: SENOKOT PO (20:16)
[2023-11-09 21:42] LABS: Glucose - Point of Care 261 mg/dl (70-99)
[2023-11-10] VITALS (7 sets, daily range): BP systolic 129–141; BP diastolic 50–73; PULSE 60; O2SAT 100
[2023-11-10] MEDS: NSS 1000 IV ×2 (04:01→14:07)
--- NOTE | 2023-11-10 06:59 | W.PN.HOSP.TC ---
Today's Communication/Plan
-
cont monitoring for now
possible discharge acute rehab tomorrow if patient remains stable/continues to improve
Assessment / Plan
Assessment / Plan
Physical Exam
General: Well Developed, Well Nourished, No Apparent Distress, Comfortable and Conversant
HEENT: Normocephalic, Atraumatic, Nose Appears Normal and Ears Appear Normal
Respiratory: Clear to Auscultation, Wheezes and Non Labored Respirations
Cardiac: Regular Rhythm and S1/S2
GI: Soft, Nontender, Nondistended and Normal Bowel Sounds
Skin: Warm and Dry
Neuro: Awake, Alert and Nonfocal/Grossly Intact
Psych: Calm and Apparent Dementia
Assessment/Plan
HPI: 82 yo woman with hx atrial fibrillation, CAD, DM presented to the ER for fatigue over past several days with CT Head showing small intraparenchymal hemorrhage in the right thalamus.
Brought in by son per her PCP recommendation.� She continues to feel fatigued but mildly improved.
CT HEAD:
Small intraparenchymal hemorrhage in the right thalamus. Mild atrophy
# Lethargy likely due to small intraparenchymal hemorrhage in the right thalamus.
# Hemorrhagic stroke with small bleed in the right thalamus
# Concern for mild dementia
repeat CT Head with stable small acute right thalamic hemorrhage.
MRI brain with corresponding signal abnormality in the right thalamus as seen on CT head
Okay to continue MANAGER HEAVY DUTY Eliquis per neurology
Cont Atorvastatin, LDL at 42
A1c 7.0%
Appreciate Neurology and neurosurgery input.
Maintain SBP less than 140 mmHg: added Losartan on 11/03/23 to existing antihypertensive regimen
But patient has labile hypertension
Cardiology recommended continuing current medications, and adding: Hydralazine 25 mg TID for better control of blood pressure
PT recommended acute rehab
-Delirium precautions
-Avoid cerebral hypoperfusion, BUYER ASSISTANT suppressants and anticholinergic medications.
-TSH B12 wnl
-Outpatient neuropsychological evaluation
#Prolonged QTc
-Avoid additional QTc-prolonging medications
# Acute metabolic encephalopathy, due to acute stroke vs UTI
# Concern for Mild Dementia
Monitor mental status
Urine culture with E coli and Klebsiella
Status post Ceftriaxone
Status post Levaquin
Patient should have follow-up urinalysis and urine culture approximately 2 weeks following the completion of her antibiotic therapy.
Consulted ID, recommendations appreciated, due to resistance pattern of organisms above as well as for best option given patient is on Tikosyn: Macrobid 100 mg BID x 7 days started as per ID since completed
Discharge to [facility] held due to episode nausea vomiting diarrhea 11/10 with associate hypotension since resolved
suspect viral gastroenteritis self-limited
wbc trending down, kidney function improving
mild lactic acidosis persists
# Acute hypoxic resp insufficiency resolved
Weaned to RA
Pt denies to resp symptoms
CXR without acute disease
Noted wheezing on exam, completed prednisone 40 mg daily x5 days
Resumed patient's home prednisone 2.5 mg Q2D
# Atrial fib with rapid ventricular response
Off Cardizem drip
Continue MANAGER HEAVY DUTY Cardizem, Lopressor, Tikosyn 125 mcg twice daily
Consulted cardiology about Tikosyn and QTc prolongation with QTc of 513: per cardiology, with patient's baseline abnormalities of right, bundle branch block, left anterior fascicular block and pacemaker, QT can go up to 550
Continue MANAGER HEAVY DUTY Eliquis
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
-Found on echocardiogram this admission
-Outpatient ischemic evaluation (stress test)
-Patient's Toprol XL increased to 100 mg daily
-Jardiance 10 mg daily added
# Anemia of chronic disease
Ferrous sulfate continued
Continue to monitor
# FANTASMA on CKD III
Creatinine 1.7 since improved to baseline likely 1.0-1.2
slight increase again 1.4 1.5
# Inflammatory arthritis
Continue home prednisone
# History of CVA in 2015 with residual memory difficulty.
# Coronary artery disease status post CABG
Continue statin
# Essential hypertension
# Type 2 diabetes
# Hyperglycemia
Insulin sliding scale
CHO diet
Consulted Diabetes LEGAL EXECUTIVE, recommendations appreciated
cont insulin regimen, titrate as necessary
Jardiance
# Hyperlipidemia
On statin
# Obesity
# Depression
Continue duloxetine
DVT ppx: Eliquis
DNR
Dispo: Acute rehab
I spent a total of 56 minutes with the patient or on the floor. More than 50% of this time involved counseling and coordination of care.
Anticipated Discharge: Within 24 hours
Subjective/Interval History
-
Date of Service: November 10, 2023
Patient overall seems symptomatically improved. reports feeling better compared to yesterday. No further episodes nausea vomiting diarrhea since yesterday. AOx3
Objective Data
-
Labs:
Laboratory Results
11/10/23
06:00
WBC Pending
Hgb Pending
Hct Pending
Plt Count Pending
Sodium Pending
Potassium Pending
Chloride Pending
Carbon Dioxide Pending
BUN Pending
Creatinine Pending
Glucose Pending
Calcium Pending
Vital Signs:
Vital Signs
Temp Pulse Resp BP Pulse Ox
97.9 F 61 16 141/58 98
11/10/23 03:00 11/10/23 03:00 11/10/23 03:00 11/10/23 03:00 11/10/23 03:00
I&O
11/08/23 11/09/23 11/10/23
06:59 06:59 06:59
Intake Total 960 / 960 1380 / 1380 1320 / 1320
Balance 960 / 960 1380 / 1380 1320 / 1320
[2023-11-10 07:54] LABS: Glucose - Point of Care 97 mg/dl (70-99)
--- NOTE | 2023-11-10 08:15 | PN.DE.MGMTRT ---
Insulin Management
- -
11/03/2023: Diabetes Management Consult
82 year old female admitted on 10/30/23 for a small intraparenchymal hemorrhage in the right thalamus.
PMH includes: HTN, A-Fib, CAD and T2DM, current A1C 7.0%, improved from 7.9% on .
Pt was taking Humalog 75/25 mix, 30units in AM and 25 units in PM.
Pt developed acute hypoxic Resp insufficiency on 11/02 and was started on oral steroids- Pred 40mg daily-->Hyperglycemia.
Current Insulin regimen includes: 70/30 BID, 15 units in AM and 12 units in PM.
Glucose has remained elevated, FBG 283 this AM, Premeal 150-369, requiring 1-5 units of additional corrective insulin.
Pt has received 15 units of her AM dose, will give additional 10 units NOW and increase AM dose to 25 units.
Increase PM dose to 20 units. Will closely follow and adjust insulin regimen as necessary
11/04/2023 Diabetes Management Follow up
Patient now on prednisone 40 mg daily. Home dose of 75/25 recorded in chart as 30 units in AM and 25 units with dinner. 70/30 insulin increased yesterday, glucose remained > 300. Will increase AM 70/30 dose to 30 units and dinner dose to 26
units. Will follow for further needed adjustments
11/05/2023 Diabetes Management Follow up
70/30 doses increased yesterday, first dose of 30 units given this AM. Pre dinner 70/30 increased to 26 units, no HS glucose obtained. Fasting glucose this AM 106, 30 units 70/30 administered. Will make no further changes to insulin today. Will
follow.
11/06/2023 Diabetes Management Follow up
Glucose @ HS 266, fasting this AM 246. Will increase pre dinner 70/30 to 30 units, continue AM dose 30 units. Will continue to follow for further needed adjustments.
11/07/2023: Diabetes Management F/U:
Steroids tapered down to home dose of 2.5mg Q2D yesterday. Glucose improved overnight, FBG 145 this AM.
Will reduce evening 70/30 dose to her OP dose of 25units. Cont AM dose of 30 units.
Will closely follow and make further adjustment if necessary
11/10/2023: Diabetes Management F/U:
Remains on home dose of Steroids 2.5mg Q2D.
Was started on Jardiance 10mg on 11/07 by Cards. Glucose stable with some elevation @HS, though FBG 89 this AM and 97 before breakfast.
Will make no changes to current regimen. Cont 70/30- 25units in PM and 30 units in AM, and Jardiance 10mg daily.
Will closely follow and make further adjustment as necessary
Diabetes History
- -
Type of Diabetes: 2 requiring insulin
Pre-Admission Diabetes Regimen
Lab Results
Hemoglobin A1c 7.0 % (4.0-5.6) H 10/30/23 03:52
Insulin Pump Settings
IP Diabetes Regimen
11/09/23 11/09/23 11/09/23
08:13 11:23 16:33
POC Glucose 126 H 140 H 260 H
11/09/23 11/10/23
21:39 07:53
POC Glucose 261 H 97
Meal type: Dinner
Meal type: Lunch
Meal type: Breakfast
Amount consumed: 50%
Amount consumed: 85%
Amount consumed: Patient refused
Patient Education
[2023-11-10 08:26] LABS: Hemoglobin 11.4 g/dL (12.0-16.0); Mean Corp Hgb Conc. 31.7 g/dL (33.0-37.0); Mean Corpuscular Hgb 28.4 pg (27.0-31.0); Mean Corpuscular Volume 89.6 fL (81.0-99.0); Red Blood Cell Count 4.02 10^6/uL (4.20-5.40); Red Cell Dist. Width 15.1 % (11.5-14.5); White Blood Cell Count 15.6 10^3/uL (4.8-10.8)
[2023-11-10 08:47] LABS: Mean Platelet Volume 11.5 fL (7.4-10.4); Platelet Count 208 10^3/uL (130-400)
[2023-11-10] MEDS: NOVOLOG FLEXPEN-LOW RESISTANCE SC (08:53)
[2023-11-10] MEDS: FEOSOL 325 MG PO (08:56)
[2023-11-10] MEDS: ELIQUIS 5 MG PO ×2 (08:56→20:19)
[2023-11-10] MEDS: COZAAR 50 MG PO ×2 (08:56→20:18)
[2023-11-10] MEDS: CARDIZEM CD 240 MG PO (08:56)
[2023-11-10] MEDS: APRESOLINE 25 MG PO ×3 (08:57→22:41)
[2023-11-10] MEDS: COLACE PO (08:57)
[2023-11-10] MEDS: SENOKOT PO (08:57)
[2023-11-10] MEDS: TIKOSYN 125 MCG PO ×2 (08:57→20:19)
[2023-11-10] MEDS: CLARITIN 10 MG PO (08:57)
[2023-11-10 09:01] LABS: Blood Urea Nitrogen 44 mg/dl (7-17); Calcium 8.8 mg/dl (8.4-10.2); Carbon Dioxide 24 mmol/L (22-30); Chloride 107 mmol/L (98-107); Estimated Creatinine Clearance 31 ml/min; Glucose 89 mg/dl (70-99); Magnesium 2.1 mg/dl (1.6-2.3); Phosphorus 4.1 mg/dl (2.5-4.5); Potassium 3.1 mmol/L (3.5-5.1); Sodium 137 mmol/L (135-145)
[2023-11-10] MEDS: TOPROL XL 100 MG PO (09:03)
[2023-11-10] MEDS: CYMBALTA DELAYED RELEASE 30 MG PO (09:03)
[2023-11-10] MEDS: FOLVITE 0.800000000000000044 MG PO (09:03)
[2023-11-10] MEDS: MIRALAX PO (09:04)
[2023-11-10] MEDS: JARDIANCE 10 MG PO (09:16)
[2023-11-10] MEDS: NOVOLOG MIX 70/30 FLEXPEN 30 UNITS SC (10:05)
[2023-11-10] MEDS: KCL 40 MEQ PO (10:36)
--- NOTE | 2023-11-10 10:44 | PTOTSP ---
ST Follow-Up Note
Pt continues to present with fairly functional oral pharyngeal parameters. Pt demonstrates a mild to moderate cognitive linguistic impairment 2/2 her acute stroke and possible underlying dementia. Pt would continue to benefit from acute in patient
rehabilitation upon discharge.
Recommendations:
- Continue regular solids and thin liquids with meds as tolerated.
- Continue with BOX LIDDER services to monitor diet tolerance and administer cognitive linguistic tx.
--- NOTE | 2023-11-10 11:05 | CM ---
Patient seen bedside.
patient not cleared for transfer to [facility].
[facility] updated.
Plan: [facility] when medically stable. (no auth required)
[2023-11-10 11:10] LABS: Lactic Acid 2.6 mmol/L (0.7-2.0)
[2023-11-10 11:36] LABS: Glucose - Point of Care 169 mg/dl (70-99)
[2023-11-10] MEDS: NSS 500 IV (12:48)
--- NOTE | 2023-11-10 13:23 | W.PN.ID1 ---
Date of Service
Date of Service: November 10, 2023
Today's Communication
Observe off abx.
Assessment / Plan
Complicated urinary tract infection
- Cultures with E. coli and Klebsiella aerogenes
- s/p course of macrodantin
Leukocytosis
- Suspect steroid effect
HTN
CAD
Chronic vertigo
Hx CVA
Asthma
CHF
Dyslipidemia
Hx UTIs
DM
CKD
Recommendations:
Observe off abx.
Patient should have follow-up urinalysis and urine culture approximately 2 weeks following the completion of her antibiotic therapy.
����������������������������������������������������������
Chief Complaint
-: UTI
Subjective / Review of Systems
Review of Systems: No Fever and No Chills
Vital Signs / Physical Exam
Vital Signs
Vital Signs
Temp Pulse Resp BP Pulse Ox
97.7 F 62 16 141/62 98
11/10/23 11:08 11/10/23 11:08 11/10/23 11:08 11/10/23 11:08 11/10/23 11:08
Physical Exam
Constitutional: No Acute Distress and Chronically Ill
Pulmonary: Non Labored
Gastrointestinal: Soft, Non Tender, Non Distended, Normal Bowel Sounds, No Rebound and No Guarding
Neurological: Awake, Alert and Oriented
Psychological: Calm
Objective Data
Lab Data
Lab Results
11/10/23 08:06
11/10/23 08:06
Estimated Creat Clear 31 ml/min 11/10/23 08:06
Lactic Acid 2.6 mmol/L (0.7-2.0) H 11/10/23 10:50
Total Bilirubin 0.7 mg/dl (0.2-1.3) 11/09/23 06:50
AST 28 U/L (14-36) 11/09/23 06:50
ALT 22 U/L (0-35) 11/09/23 06:50
Alkaline Phosphatase 73 U/L (38-126) 11/09/23 06:50
Most recent labs reviewed.
Micro Results:
10/31/23 09:17 Urine Culture - Final
Urine Escherichia coli
Klebsiella aerogenes
1. Escherichia coli
[facility] RX
--------- ---
Amoxicillin/Potas. Clavulanate <=8/4 S
Ampicillin <=8 S
Ampicillin/Sulbactam <=8/4 S
Cefazolin <=2 S
Ertapenem <=0.5 S
Ciprofloxacin <=0.25 S
Gentamicin <=4 S
Levofloxacin <=0.5 S
Meropenem <=1 S
Nitrofurantoin-Urine Only <=32 S
Piperacillin/Tazobactam <=16 S
Tobramycin <=4 S
Trimethoprim/Sulfamethoxazole <=2/38 S
2. Klebsiella aerogenes
[facility] RX
--------- ---
Amoxicillin/Potas. Clavulanate >16/8 R
Ampicillin >16 R
Ampicillin/Sulbactam <=8/4 R
Cefazolin >16 R
Cefepime <=2 S
Ceftazidime 16 R
Ceftriaxone >2 R
Ertapenem <=0.5 S
Ciprofloxacin <=0.25 S
Gentamicin <=4 S
Levofloxacin <=0.5 S
Meropenem <=1 S
Nitrofurantoin-Urine Only <=32 S
Piperacillin/Tazobactam <=16 S
Tobramycin <=4 S
Trimethoprim/Sulfamethoxazole <=2/ S
Imaging:
10/31/2023 MRI brain: Small focus of signal abnormality with susceptibility blooming within the right thalamus compatible with a small acute hemorrhage involving the right thalamus. Moderate diffuse atrophy noted. Mild periventricular leukomalacia
[2023-11-10] MEDS: NOVOLOG FLEXPEN-LOW RESISTANCE 1 UNITS SC ×2 (13:47→18:13)
[2023-11-10] MEDS: SENOKOT-S PO (13:52)
[2023-11-10 17:31] LABS: Glucose - Point of Care 156 mg/dl (70-99)
[2023-11-10] MEDS: LIPITOR 80 MG PO (18:06)
[2023-11-10] MEDS: PROTONIX 40 MG PO (18:06)
[2023-11-10] MEDS: NOVOLOG MIX 70/30 FLEXPEN 25 UNITS SC (18:09)
[2023-11-10] MEDS: SENOKOT-S 1 TABLET PO (20:18)
[2023-11-10] MEDS: KCL 20 MEQ PO (20:19)
[2023-11-10 21:45] LABS: Glucose - Point of Care 143 mg/dl (70-99)
[2023-11-11 03:55] VITALS: BP 118/46
[2023-11-11 06:14] VITALS: BMI 35.2
[2023-11-11 07:21] LABS: Hematocrit 36.1 % (37.0-47.0); Hemoglobin 11.1 g/dL (12.0-16.0); Mean Corp Hgb Conc. 30.7 g/dL (33.0-37.0); Mean Corpuscular Hgb 28.5 pg (27.0-31.0); Mean Corpuscular Volume 92.8 fL (81.0-99.0); Platelet Count 190 10^3/uL (130-400); Red Blood Cell Count 3.89 10^6/uL (4.20-5.40)
--- NOTE | 2023-11-11 07:28 | PN.DE.MGMTRT ---
Insulin Management
- -
11/03/2023: Diabetes Management Consult
82 year old female admitted on 10/30/23 for a small intraparenchymal hemorrhage in the right thalamus.
PMH includes: HTN, A-Fib, CAD and T2DM, current A1C 7.0%, improved from 7.9% on .
Pt was taking Humalog 75/25 mix, 30units in AM and 25 units in PM.
Pt developed acute hypoxic Resp insufficiency on 11/02 and was started on oral steroids- Pred 40mg daily-->Hyperglycemia.
Current Insulin regimen includes: 70/30 BID, 15 units in AM and 12 units in PM.
Glucose has remained elevated, FBG 283 this AM, Premeal 150-369, requiring 1-5 units of additional corrective insulin.
Pt has received 15 units of her AM dose, will give additional 10 units NOW and increase AM dose to 25 units.
Increase PM dose to 20 units. Will closely follow and adjust insulin regimen as necessary
11/04/2023 Diabetes Management Follow up
Patient now on prednisone 40 mg daily. Home dose of 75/25 recorded in chart as 30 units in AM and 25 units with dinner. 70/30 insulin increased yesterday, glucose remained > 300. Will increase AM 70/30 dose to 30 units and dinner dose to 26
units. Will follow for further needed adjustments
11/05/2023 Diabetes Management Follow up
70/30 doses increased yesterday, first dose of 30 units given this AM. Pre dinner 70/30 increased to 26 units, no HS glucose obtained. Fasting glucose this AM 106, 30 units 70/30 administered. Will make no further changes to insulin today. Will
follow.
11/06/2023 Diabetes Management Follow up
Glucose @ HS 266, fasting this AM 246. Will increase pre dinner 70/30 to 30 units, continue AM dose 30 units. Will continue to follow for further needed adjustments.
11/07/2023: Diabetes Management F/U:
Steroids tapered down to home dose of 2.5mg Q2D yesterday. Glucose improved overnight, FBG 145 this AM.
Will reduce evening 70/30 dose to her OP dose of 25units. Cont AM dose of 30 units.
Will closely follow and make further adjustment if necessary
11/10/2023: Diabetes Management F/U:
Remains on home dose of Steroids 2.5mg Q2D.
Was started on Jardiance 10mg on 11/07 by Cards. Glucose stable with some elevation @HS, though FBG 89 this AM and 97 before breakfast.
Will make no changes to current regimen. Cont 70/30- 25units in PM and 30 units in AM, and Jardiance 10mg daily.
Will closely follow and make further adjustment as necessary
11/11/2023 Diabetes Management Follow up
Patient remains on steroids, prednisone 2.5 mg Q 2 days. Glucose stable yesterday, range 97 fasting to 169 pre meal. Will make no change to current regimen 70/30 30 units in AM and 25 units with dinner.
Diabetes History
- -
Type of Diabetes: 2 requiring insulin
Pre-Admission Diabetes Regimen
11/10/23
08:06
Creatinine 1.4 H
Lab Results
Hemoglobin A1c 7.0 % (4.0-5.6) H 10/30/23 03:52
Insulin Pump Settings
IP Diabetes Regimen
11/10/23 11/10/23 11/10/23
07:53 08:06 11:35
Glucose 89
POC Glucose 97 169 H
11/10/23 11/10/23
17:29 21:44
Glucose
POC Glucose 156 H 143 H
Meal type: Dinner
Meal type: Lunch
Meal type: Breakfast
Amount consumed: 100%
Amount consumed: 100%
Amount consumed: 100%
Patient Education
--- NOTE | 2023-11-11 07:28 | W.PN.HOSP.TC ---
Today's Communication/Plan
-
discharge
Assessment / Plan
Assessment / Plan
Physical Exam
General: Well Developed, Well Nourished, No Apparent Distress, Comfortable and Conversant
HEENT: Normocephalic, Atraumatic, Nose Appears Normal and Ears Appear Normal
Respiratory: Clear to Auscultation, Wheezes and Non Labored Respirations
Cardiac: Regular Rhythm and S1/S2
GI: Soft, Nontender, Nondistended and Normal Bowel Sounds
Skin: Warm and Dry
Neuro: Awake, Alert and Nonfocal/Grossly Intact
Psych: Calm and Apparent Dementia
Assessment/Plan
HPI: 82 yo woman with hx atrial fibrillation, CAD, DM presented to the ER for fatigue over past several days with CT Head showing small intraparenchymal hemorrhage in the right thalamus.
Brought in by son per her PCP recommendation.� She continues to feel fatigued but mildly improved.
CT HEAD:
Small intraparenchymal hemorrhage in the right thalamus. Mild atrophy
# Lethargy likely due to small intraparenchymal hemorrhage in the right thalamus.
# Hemorrhagic stroke with small bleed in the right thalamus
# Concern for mild dementia
repeat CT Head with stable small acute right thalamic hemorrhage.
MRI brain with corresponding signal abnormality in the right thalamus as seen on CT head
Okay to continue TIP BANDING MACHINE OPERATOR Eliquis per neurology
Cont Atorvastatin, LDL at 42
A1c 7.0%
Appreciate Neurology and neurosurgery input.
Maintain SBP less than 140 mmHg: added Losartan on 11/03/23 to existing antihypertensive regimen
But patient has labile hypertension
Cardiology recommended continuing current medications, and adding: Hydralazine 25 mg TID for better control of blood pressure
PT recommended acute rehab
-Delirium precautions
-Avoid cerebral hypoperfusion, MUSEUM EDUCATOR suppressants and anticholinergic medications.
-TSH B12 wnl
-Outpatient neuropsychological evaluation
#Prolonged QTc
-Avoid additional QTc-prolonging medications
# Acute metabolic encephalopathy, due to acute stroke vs UTI
# Concern for Mild Dementia
Monitor mental status
Urine culture with E coli and Klebsiella
Status post Ceftriaxone
Status post Levaquin
Patient should have follow-up urinalysis and urine culture approximately 2 weeks following the completion of her antibiotic therapy.
Consulted ID, recommendations appreciated, due to resistance pattern of organisms above as well as for best option given patient is on Tikosyn: Macrobid 100 mg BID x 7 days started as per ID since completed
Discharge to acute [facility] held due to episode nausea vomiting diarrhea 11/10 with associate hypotension since resolved
suspect viral gastroenteritis self-limited
wbc trending down, kidney function improving
mild lactic acidosis resolved
# Acute hypoxic resp insufficiency resolved
Weaned to RA
Pt denies to resp symptoms
CXR without acute disease
Noted wheezing on exam, completed prednisone 40 mg daily x5 days
Resumed patient's home prednisone 2.5 mg Q2D
# Atrial fib with rapid ventricular response
Off Cardizem drip
Continue TIP BANDING MACHINE OPERATOR Cardizem, Lopressor, Tikosyn 125 mcg twice daily
Consulted cardiology about Tikosyn and QTc prolongation with QTc of 513: per cardiology, with patient's baseline abnormalities of right, bundle branch block, left anterior fascicular block and pacemaker, QT can go up to 550
Continue TIP BANDING MACHINE OPERATOR Eliquis
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
-Found on echocardiogram this admission
-Outpatient ischemic evaluation (stress test)
-Patient's Toprol XL increased to 100 mg daily
-Jardiance 10 mg daily added
# Anemia of chronic disease
Ferrous sulfate continued
Continue to monitor
# FANTASMA on CKD III
Creatinine 1.7 since improved to baseline likely 1.0-1.2
slight increase again 1.4 1.5
improving at time of discharge to acute rehab.
# Inflammatory arthritis
Continue home prednisone
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
# Coronary artery disease status post CABG
Continue statin
# Essential hypertension
# Type 2 diabetes
# Hyperglycemia
Insulin sliding scale
CHO diet
Consulted Diabetes FLIGHT CREW TIME CLERK, recommendations appreciated
cont insulin regimen, titrate as necessary
Jardiance
# Hyperlipidemia
On statin
# Obesity
# Depression
Continue duloxetine
DVT ppx: Eliquis
DNR
Dispo: Acute rehab
medically stable for discharge Acute rehab with outpatient follow up recommendations
discussed with patient and her son SRIRAM Rios
Total Time Preparing Discharge ___50____ minutes including examination of the patient, summary of the hospital stay, instructions for continuing care to all relevant caregivers; and preparation of discharge records, prescriptions, and referral
forms if necessary.
Anticipated Discharge: Today
Subjective/Interval History
-
Date of Service: November 11, 2023
Seen and examined at bedside in no acute distress sitting up comfortably in chair. Denies any new acute issues at this time. Reports overall feeling well.
Objective Data
-
Labs:
Laboratory Results
11/11/23
07:04
WBC 15.0 H
Hgb 11.1 L
Hct 36.1 L
Plt Count 190
Sodium Pending
Potassium Pending
Chloride Pending
Carbon Dioxide Pending
BUN Pending
Creatinine Pending
Glucose Pending
Calcium Pending
Vital Signs:
Vital Signs
Temp Pulse Resp BP Pulse Ox
98.1 F 61 16 118/46 96
11/11/23 03:55 11/11/23 03:55 11/11/23 03:55 11/11/23 03:55 11/11/23 03:55
I&O
11/10/23 11/11/23 11/12/23
06:59 06:59 06:59
Intake Total 1320 / 1320 2840 / 2840
Balance 1320 / 1320 3934 / 4080
[2023-11-11 07:35] LABS: Lactic Acid 0.9 mmol/L (0.7-2.0)
[2023-11-11 08:11] LABS: Glucose - Point of Care 78 mg/dl (70-99)
[2023-11-11 08:12] LABS: Blood Urea Nitrogen 35 mg/dl (7-17); Carbon Dioxide 21 mmol/L (22-30); Chloride 114 mmol/L (98-107); Estimated Creatinine Clearance 33 ml/min; Glucose 69 mg/dl (70-99); Phosphorus 3.5 mg/dl (2.5-4.5); Potassium 4.2 mmol/L (3.5-5.1); Sodium 140 mmol/L (135-145); eGFR 41.31
[2023-11-11 08:31] VITALS: BP 140/97
[2023-11-11] MEDS: NOVOLOG FLEXPEN-LOW RESISTANCE SC ×2 (08:46→17:34)
[2023-11-11] MEDS: CYMBALTA DELAYED RELEASE 30 MG PO (08:59)
[2023-11-11] MEDS: FOLVITE 0.800000000000000044 MG PO (08:59)
[2023-11-11] MEDS: CARDIZEM CD 240 MG PO (08:59)
[2023-11-11] MEDS: NSS IV (08:59)
[2023-11-11] MEDS: KCL 20 MEQ PO (09:00)
[2023-11-11] MEDS: CLARITIN 10 MG PO (09:00)
[2023-11-11] MEDS: SENOKOT-S 1 TABLET PO (09:00)
[2023-11-11] MEDS: FEOSOL 325 MG PO (09:00)
[2023-11-11] MEDS: COZAAR 50 MG PO (09:00)
[2023-11-11] MEDS: APRESOLINE 25 MG PO ×2 (09:00→17:52)
[2023-11-11] MEDS: TOPROL XL 100 MG PO (09:00)
[2023-11-11] MEDS: ELIQUIS 5 MG PO (09:00)
[2023-11-11] MEDS: JARDIANCE 10 MG PO (09:00)
[2023-11-11] MEDS: TIKOSYN 125 MCG PO (09:00)
[2023-11-11] MEDS: DELTASONE 2.5 MG PO (09:13)
[2023-11-11] MEDS: NOVOLOG MIX 70/30 FLEXPEN 30 UNITS SC (10:51)
--- NOTE | 2023-11-11 11:23 | CM ---
Patient seen bedside.
Patient for [facility] when medically cleared.
IMM completed.
Plan: [facility]
Report# [phone]
[2023-11-11 12:30] LABS: Glucose - Point of Care 167 mg/dl (70-99)
[2023-11-11 12:32] VITALS: BP 151/62; PULSE 61
[2023-11-11 13:06] VITALS: BP 134/79
[2023-11-11] MEDS: NOVOLOG FLEXPEN-LOW RESISTANCE 1 UNITS SC (13:14)
--- NOTE | 2023-11-11 15:16 | W.DCSUMMARY ---
Discharge Summary
Discharge Data
Date of Admission: 10/29/23
Date of Discharge: 11/11/23
-
Pending Results: No
Hospital Course
82F hx atrial fibrillation, CAD, DM presented to the ER for fatigue over past several days with CT Head showing small intraparenchymal hemorrhage in the right thalamus.
Brought in by son per her PCP recommendation. Lethargy likely due to small intraparenchymal hemorrhage in the right thalamus, Hemorrhagic stroke with small bleed in the right thalamus, concern for mild dementia, repeat CT Head with stable small
acute right thalamic hemorrhage- MRI brain with corresponding signal abnormality in the right thalamus as seen on CT head. Okay to continue PLANT MECHANIC Eliquis per neurology. Losartan was added to existing antihypertensive regimen for goal SBP<140. Later
Cardiology added Hydralazine 25 mg TID for better control of blood pressure. PT evaluated and recommended acute rehab. Hospital course was complicated with UTI, Urine culture positive with E coli and Klebsiella. Patient completed antibiotic
regimen as per ID recommendations, taking account resistance and potential interaction with patient's home medication Tikosyn. Discharge to acute [facility] was briefly held due to episode nausea vomiting diarrhea 11/10 with associate hypotension
since resolved- suspect viral gastroenteritis self-limited. Wbc trending down, kidney function improving, mild lactic acidosis resolved. Hospital course was complicated with acute hypoxic resp insufficiency requiring supplemental oxygen, wheezing
noted on exam. CXR without acute disease. Patient improved with short steroid taper, weaned off oxygen supplementation to room air. Atrial fib with rapid ventricular response resolved with Cardizem drip since discontinued. PLANT MECHANIC Cardizem,
Lopressor, Tikosyn 125 mcg twice daily were continued. HFmrEF (EF 40-45%), outpatient ischemic evaluation (stress test) was recommended. Patient's Toprol XL was increased to 100 mg daily and Jardiance 10 mg daily was added. Medically stable,
patient was discharged to Acute Rehab with outpatient follow up recommendations.
Discharge Plan
-
Patient Disposition: Acute Rehab Facility
Discharge Diagnosis/Procedures: lethargy due to small intraparenchymal hemorrhage in the right thalamus (hemorrhagic stroke), Prolonged QT, possible underlying vascular dementia, acute metabolic encephalopathy due to stroke vs urinary tract
infection vs steroids, atrial fibrillation, acute hypoxic respiratory failure resolved, Acute Heart Failure with mid-range Ejection Fraction 40-45%, Anemia of Chronic Disease, Acute on Chronic Kidney disease stage III, inflammatory arthritis,
history stroke 2016 residual memory difficulty, coronary artery disease status post CABG, Diabetes, Hyperlipidemia, Obesity, Depression
Condition: Fair
Diet: Low Fat, Low Cholesterol, Low Sodium and Diabetic, Carb Controlled
Activity: As tolerated
Driving Restrictions: No driving
Bathing Restrictions: None
Blood Work: Please obtain CBC and BMP with primary care provider in 1 week of discharge
Others Tests: Please repeat urinalysis/urine culture in 2 weeks of discharge.
Other Services: PT, OT and ST
Specialty Instructions: Weigh Daily- Call MD for wt gain/loss 3 lbs overnight/5 lbs in 1 week
Activity Restrictions/Additional Instructions:
Please follow up with primary care provider in less than 1 week of discharge, keep your appointment with Cardiology, and follow up with Neurology and Infectious disease in 1 month of discharge.
For better blood pressure control hydralazine and losartan have been added to your medication regimen
home metoprolol has been converted to 100 mg XR daily for ease of dosing (as oppose to short acting twice a day)
Jardiance has been added for treatment diabetes and heart failure
Scheduled laxatives with holding parameters and as needed laxatives have been prescribed.
Please take medications as prescribed/recommended and follow up with primary care provider and/or other healthcare provider involved in your care for refills and/or further adjustments to your medication regimen as necessary.
duloxetine 30 mg capsule,delayed release 30 mg PO DAILY Mental Health
apixaban 5 mg tablet (Eliquis) 5 mg PO BID Blood clot prevention/tx atrial fibrillation
atorvastatin 80 mg tablet 80 mg PO QPM High cholesterol
loratadine 10 mg tablet 10 mg PO DAILY Allergies 04/20/20
furosemide 40 mg tablet 40 mg PO Q48H Fluid retention/Swelling Heart Failure
Vision Shield 2 tab PO DAILY Supplement
acetaminophen 500 mg tablet (Tylenol Extra Strength) 1,000 mg PO Q6H PRN mild pain
cholecalciferol (vitamin D3) 25 mcg (1,000 unit) tablet 25 mcg PO BID Supplement Nutrition
cranberry fruit 450 mg tablet (cranberry) 450 mg PO BID Supplement
dofetilide 125 mcg capsule 125 mcg PO Q12 Arrhythmia
ferrous sulfate 325 mg (65 mg iron) tablet (iron) 325 mg PO DAILY Supplement
folic acid 0.8 mg capsule 0.8 mg PO DAILY Supplement
insulin lispro protamine-lispro 100 unit/mL (75-25) subcutaneous pen (Humalog Mix 75-25 KwikPen) 25 unit SC QPM Diabetes
insulin lispro protamine-lispro 100 unit/mL (75-25) subcutaneous pen (Humalog Mix 75-25 KwikPen) 30 unit SC DAILY Diabetes
pantoprazole 40 mg tablet,delayed release 40 mg PO QPM Gastrointestinal Issue
diltiazem HCl 240 mg capsule,extended release 24 hr 240 mg PO DAILY hypertension rate control atrial fibrillation
levalbuterol HCl 0.63 mg/3 mL solution for nebulization 0.63 mg (3 mL) inhalation R Q6HPRN PRN shortness of breath/wheezing
prednisone 2.5 mg tablet 2.5 mg PO Q2D inflammatory arthritis
empagliflozin 10 mg tablet (Jardiance) 10 mg PO DAILY Diabetes Heart Failure
hydralazine 25 mg tablet 25 mg PO TID Hypertension
losartan 25 mg tablet 50 mg PO Q12H Hypertension
metoprolol succinate 100 mg tablet,extended release 24 hr 100 mg PO DAILY Heart Failure
polyethylene glycol 3350 17 gram oral powder packet (HealthyLax) 17 g PO DAILYPRN PRN constipation
sennosides 8.6 mg-docusate sodium 50 mg tablet (Stool Softener-Stimulant Laxative) 1 tab PO BID constipation
Referrals:
Kaci Hawthorne MD [Active] - in one month
Margarito Nguyễn DO [Active] - in one month
Rosi Melendez CRNP [Specified Professional Personl] - 11/21/23 9:20 am
Kulwinder Briseno MD [Family Provider] - in less than 1 week
Prescriptions:
New
hydralazine 25 mg Tablet
25 mg PO TID 30 Days Qty: 90 0RF
Rx Instructions:
for 30 days
losartan 25 mg Tablet
50 mg PO Q12H 30 Days Qty: 120 0RF
Jardiance 10 mg Tablet
10 mg PO DAILY 30 Days Qty: 30 0RF
Rx Instructions:
for 30 days
polyethylene glycol 3350 [HealthyLax] 17 gram Powder In Packet
17 g PO DAILYPRN PRN (Reason: constipation) Qty: 100 0RF
sennosides-docusate sodium [Stool Softener-Stimulant Laxat] 8.6-50 mg Tablet
1 tab PO BID 30 Days Qty: 60 0RF
Rx Instructions:
hold if diarrhea
metoprolol succinate 100 mg Tablet Extended Release 24 Hr
100 mg PO DAILY 30 Days Qty: 30 0RF
Continued
duloxetine 30 MG capsule,delayed release(DR/EC)
30 mg PO DAILY
atorvastatin 80 MG tablet
80 mg PO QPM
Eliquis 5 MG tablet
5 mg PO BID
loratadine 10 MG tablet
10 mg PO DAILY
furosemide 40 MG tablet
40 mg PO Q48H
acetaminophen [Tylenol Extra Strength] 500 mg Tablet
1,000 mg PO Q6H PRN (Reason: mild pain)
pantoprazole 40 mg Tablet,Delayed Release (Dr/Ec)
40 mg PO QPM
ferrous sulfate [iron] 325 mg (65 mg iron) Tablet
325 mg PO DAILY
insulin lispro protamin-lispro [Humalog Mix 75-25 KwikPen] 100 unit/mL (75-25) Insulin Pen
30 unit SC DAILY
insulin lispro protamin-lispro [Humalog Mix 75-25 KwikPen] 100 unit/mL (75-25) Insulin Pen
25 unit SC QPM
folic acid 0.8 mg Capsule
0.8 mg PO DAILY
cholecalciferol (vitamin D3) 25 mcg (1,000 unit) Tablet
25 mcg PO BID
cranberry 450 mg Tablet
450 mg PO BID Qty: 0
Vision Shield
2 tab PO DAILY
dofetilide 125 MCG capsule
125 mcg PO Q12
diltiazem HCl 240 mg Capsule,Extended Release 24hr
240 mg PO DAILY Qty: 30 0RF
prednisone 2.5 mg Tablet
2.5 mg PO Q2D Qty: 30 0RF
levalbuterol HCl 0.63 mg/3 mL Solution For Nebulization
0.63 mg inhalation R Q6HPRN PRN (Reason: shortness of breath/wheezing) Qty: 90 0RF
Discontinued
metoprolol tartrate 100 MG tablet
100 mg PO BID
Discharge Orders:
Discharge Patient (As Directed); Ordered 11/11/23
Ordered By: Teodoro Gray
Discharge Date and Time
Discharge Date/Time: 11/11/23 18:46
[2023-11-11 15:34] VITALS: BP 131/72
[2023-11-11 16:09] VITALS: BP 141/53; PULSE 60; O2SAT 97
[2023-11-11 17:14] LABS: Glucose - Point of Care 129 mg/dl (70-99)
[2023-11-11] MEDS: LIPITOR 80 MG PO (17:38)
[2023-11-11] MEDS: PROTONIX 40 MG PO (17:38)
[2023-11-11] MEDS: NOVOLOG MIX 70/30 FLEXPEN 25 UNITS SC (17:52)
[2023-11-12 16:45] LABS: Glucose - Point of Care 187 mg/dl (70-99)
[2023-11-12 16:45] LABS: Glucose - Point of Care 460 mg/dl (70-99)
[2023-11-12 16:45] LABS: Glucose - Point of Care 409 mg/dl (70-99)
== END 2023-11-11 18:46 | DRG 64 ==
LOC: 4 WEST ACU 23:08
PROVIDERS: Emergency Medicine; Hospitalist; Internal Medicine; Registered Nurse; ADMITTING PHYSICIAN Student in an Organized Health Care Education/Training Program; ATTENDING PHYSICIAN Internal Medicine; CONSULT PHYSICIAN Internal Medicine Cardiovascular Disease; CONSULT PHYSICIAN Internal Medicine Infectious Disease; CONSULT PHYSICIAN Physical Medicine & Rehabilitation; EMERGENCY PHYSICIAN Emergency Medicine; FAMILY PHYSICIAN Family Medicine; OTHER PHYSICIAN Neurological Surgery; OTHER PHYSICIAN Student in an Organized Health Care Education/Training Program
DX: I61.8 Other nontraumatic intracerebral hemorrhage (principal); G93.41 Metabolic encephalopathy; I50.21 Acute systolic (congestive) heart failure; I13.0 Hypertensive heart and chronic kidney disease with heart failure and stage 1 through stage 4 chronic kidney disease, or unspecified chronic kidney disease; I25.810 Atherosclerosis of coronary artery bypass graft(s) without angina pectoris; N39.0 Urinary tract infection, site not specified; N17.9 Acute kidney failure, unspecified; I48.0 Paroxysmal atrial fibrillation; Z79.01 Long term (current) use of anticoagulants; J45.909 Unspecified asthma, uncomplicated; N18.31 Chronic kidney disease, stage 3a; D63.1 Anemia in chronic kidney disease; I69.811 Memory deficit following other cerebrovascular disease; M06.4 Inflammatory polyarthropathy; E66.9 Obesity, unspecified; F32.A Depression, unspecified; Z66 Do not resuscitate; Z68.35 Body mass index [BMI] 35.0-35.9, adult; E78.00 Pure hypercholesterolemia, unspecified; B96.20 Unspecified Escherichia coli [E. coli] as the cause of diseases classified elsewhere; B96.1 Klebsiella pneumoniae [K. pneumoniae] as the cause of diseases classified elsewhere; E11.22 Type 2 diabetes mellitus with diabetic chronic kidney disease; Z11.52 Encounter for screening for COVID-19; R29.701 NIHSS score 1; Z87.440 Personal history of urinary (tract) infections; Z95.0 Presence of cardiac pacemaker; Z79.4 Long term (current) use of insulin
CPT/HCPCS: 70450; 70551; 71046; 80048; 80053; 80061; 81003; 81015; 82248; 82607; 82947; 82962; 83036; 83605; 83735; 84100; 84443; 85025; 85027; 87077; 87086; 87186; 87811; 92507; 92523; 92526; 92610; 93005; 93306; 94640; 96361; 96365; 96366; 96376; 97112; 97116; 97129; 97162; 97167; 97530; 97535; 99291

== ENCOUNTER → 2024-01-20 08:27 | Outpatient (REF) | payer MEDICARE, OTHER, SELFPAY | LOC: DHCBC/DCA 08:27 | PROVIDERS: ATTENDING PHYSICIAN Nurse Practitioner; FAMILY PHYSICIAN Family Medicine | DX: I42.9 Cardiomyopathy, unspecified (principal); R94.31 Abnormal electrocardiogram [ECG] [EKG] | CPT/HCPCS: 78452; 93017; A9500; J2785 ==

== ENCOUNTER 2024-02-19 11:04 | Outpatient (RCR) | payer MEDICARE, OTHER, SELFPAY | END 2024-02-19 23:59 | disposition home or self-care (01) | LOC: RPT 11:04 | PROVIDERS: ATTENDING PHYSICIAN Family Medicine | DX: I69.328 Other speech and language deficits following cerebral infarction (principal); I69.398 Other sequelae of cerebral infarction; Z91.81 History of falling; M25.69 Stiffness of other specified joint, not elsewhere classified; R26.2 Difficulty in walking, not elsewhere classified; M62.81 Muscle weakness (generalized); Z73.6 Limitation of activities due to disability | CPT/HCPCS: 96125; 97110; 97112; 97116; 97129; 97130; 97163; 97530 ==

== ENCOUNTER 2024-03-08 13:05 | Outpatient (RCR) | payer MEDICARE, OTHER, SELFPAY | END 2024-03-08 23:59 | disposition home or self-care (01) | LOC: RPT 13:05 | PROVIDERS: ATTENDING PHYSICIAN Family Medicine | DX: I69.328 Other speech and language deficits following cerebral infarction (principal); I69.319 Unspecified symptoms and signs involving cognitive functions following cerebral infarction; Z73.6 Limitation of activities due to disability | CPT/HCPCS: 97110; 97112; 97129; 97130; 97530 ==

== ENCOUNTER 2024-03-10 14:42 | Emergency (ER) | payer MEDICARE, OTHER, SELFPAY ==
[2024-03-10 14:47] VITALS: BP 147/60
--- NOTE | 2024-03-10 15:51 | ED.GENMED ---
History of Present Illness
<Peyton Devine PA-C - Last Filed: 03/10/24 20:41>
General
Chief Complaint: Rectal Bleeding
Source: patient
Exam Limitations: none
Time Seen by Provider: 03/10/24 15:42
Nursing documentation reviewed up to this point in time: agreed with
Travel History
Have you had any contact with someone who has COVID-19?: No
Do you have any symptoms of coronavirus? Fever > 100 degrees, chills, cough, shortness of breath, sore throat, loss of taste or smell, muscle aches, or headache?: No
History of Present Illness
History of Present Illness:
This is a 83-year-old female with a past medical history of A-fib on Eliquis, insulin-dependent diabetes, CHF, CAD, hypertension, hyperlipidemia, diverticular bleed presenting to the emergency department today with concerns of blood she noticed when
wiping. Patient states that she was using the bathroom today and when she wiped, she noticed blood on the toilet paper. This started yesterday with just pink discoloration today is a lot brighter blood. Patient denies any dizziness or
lightheadedness. Patient states that she noticed blood on toilet paper in the past when she had a diverticular bleed, however at that time it was a lot more severe. Patient also has associated pelvic cramping with this. Patient recently finished
an antibiotic for UTI and states that she still has some mild burning with urination. Patient denies abdominal pain, nausea, vomiting, fevers or chills. Patient states that she will occasionally get episodes of diarrhea on and off but
states that this is her baseline. Patient denies any constipation. Patient notes that she is not sure where the bleeding is coming from, not sure if it is coming from her bladder, vagina, or rectum. Patient denies vaginal pain.
Past History
<Peyton Devine PA-C - Last Filed: 03/10/24 20:41>
Past History
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
kidney disease)
ED Past Surgical History: Cardiac (pacemaker), Cholecystectomy, Gynecological and Orthopedic (Bilateral knee replacements)
Social History
Tobacco: Non-smoker
Alcohol: None
Drug: None
Personal:
Living: with family
Employment: Retired
Family History
Family History: Diabetes
Review of Systems
<Peyton Devine PA-C - Last Filed: 03/10/24 20:41>
Review of Systems
All Other Systems: ROS reviewed and negative except as documented in HPI and ROS
Phy Exam
<Peyton Devine PA-C - Last Filed: 03/10/24 20:41>
Physical Exam
Physical Exam:
General: Patient is well appearing and in no acute distress; non-toxic
Skin: Warm and dry, no rashes or lesions
Head: Normocephalic, atraumatic
Eyes: Sclera non-icteric. EOMs intact.
Cardiac: Heart rate is irregularly irregular with no murmur
Peripheral Vascular: No lower extremity swelling or edema
Pulm: Normal respiratory effort, no wheezes, rales, rhonchi
Abdomen: Scattered areas of ecchymosis seen on the lower abdomen from insulin injections. No abdominal tenderness to palpations, no palpable masses.
Genitourinary: No lesions noted on the external genitalia. No bleeding noted at the vaginal introitus. No pain with bimanual pelvic examination. No blood appreciated on exam. On her rectal exam, external hemorrhoids present on exam, but they are
nonthrombosed, nonbleeding. No stool present in rectal vault. No pain on exam. Good sphincter tone
Neuro: CN II-XII intact, no focal neurologic deficits.
Psychiatric: Appropriate mood and affect.
Course
<Peyton Devine PA-C - Last Filed: 03/10/24 20:41>
Orders/Labs/Results
Orders:
Orders
03/10/24 16:21
Basic Metabolic Panel Urgent
Complete Blood Count/With Diff Urgent
03/10/24 17:19
Urinalysis Reflex To Culture Urgent
Date Specimen was Collected: 03/10/24
Time Specimen was Collected: 17:18
03/10/24 17:21
CT Abd/pelvis W Iv Cont Urgent
Comment:
Reason For Exam: pelvic cramping, questionable hematuria
0.9% Sodium Chloride 1000 ml [Nss] 1,000 ml IV BOLUS
Abnormal Lab Results
03/10/24
16:21
WBC 16.4 H 10^3/uL
(4.8-10.8)
RBC 4.12 L 10^6/uL
(4.20-5.40)
Hgb 11.3 L g/dL
(12.0-16.0)
Hct 35.7 L %
(37.0-47.0)
MCHC 31.7 L g/dL
(33.0-37.0)
RDW 15.5 H %
(11.5-14.5)
MPV 11.2 H fL
(7.4-10.4)
Abs Immat Gran (auto) 0.1 H 10^3/uL
(0-0.05)
Absolute Neuts (auto) 14.1 H 10^3/uL
(1.4-6.5)
Absolute Monos (auto) 0.9 H 10^3/uL
(0.1-0.6)
Immature Gran % 0.8 H %
(0-0.5)
Neutrophils % 86.0 H %
(42.2-75.2)
Lymphocytes % 7.4 L %
(20.5-51.1)
Chloride 110 H mmol/L
(98-107)
Carbon Dioxide 20 L mmol/L
(22-30)
BUN 42 H mg/dl
(7-17)
Glucose 233 H mg/dl
(70-99)
03/10/24 16:21
03/10/24 16:21
Vital Signs
Initial and Last Documented VS:
Initial Vital Signs
Temp Pulse Resp BP Pulse Ox
98.0 F 63 16 147/60 97
03/10/24 14:47 03/10/24 14:47 03/10/24 14:47 03/10/24 14:47 03/10/24 14:47
Last Documented Vital Signs
Temp Pulse Resp BP Pulse Ox
98.0 F 65 17 138/55 95
03/10/24 14:47 03/10/24 16:45 03/10/24 16:45 03/10/24 16:25 03/10/24 16:45
<Leighton Rodríguez, DO - Last Filed: 03/10/24 17:19>
Orders/Labs/Results
Orders:
Orders
03/10/24 16:21
Basic Metabolic Panel Urgent
Complete Blood Count/With Diff Urgent
03/10/24 17:19
Urinalysis Reflex To Culture Urgent
Date Specimen was Collected: 03/10/24
Time Specimen was Collected: 17:18
03/10/24 17:21
CT Abd/pelvis W Iv Cont Urgent
Comment:
Reason For Exam: pelvic cramping, questionable hematuria
0.9% Sodium Chloride 1000 ml [Nss] 1,000 ml IV BOLUS
Abnormal Lab Results
03/10/24
16:21
WBC 16.4 H 10^3/uL
(4.8-10.8)
RBC 4.12 L 10^6/uL
(4.20-5.40)
Hgb 11.3 L g/dL
(12.0-16.0)
Hct 35.7 L %
(37.0-47.0)
MCHC 31.7 L g/dL
(33.0-37.0)
RDW 15.5 H %
(11.5-14.5)
MPV 11.2 H fL
(7.4-10.4)
Abs Immat Gran (auto) 0.1 H 10^3/uL
(0-0.05)
Absolute Neuts (auto) 14.1 H 10^3/uL
(1.4-6.5)
Absolute Monos (auto) 0.9 H 10^3/uL
(0.1-0.6)
Immature Gran % 0.8 H %
(0-0.5)
Neutrophils % 86.0 H %
(42.2-75.2)
Lymphocytes % 7.4 L %
(20.5-51.1)
Chloride 110 H mmol/L
(98-107)
Carbon Dioxide 20 L mmol/L
(22-30)
BUN 42 H mg/dl
(7-17)
Glucose 233 H mg/dl
(70-99)
03/10/24 16:21
03/10/24 16:21
Vital Signs
Initial and Last Documented VS:
Initial Vital Signs
Temp Pulse Resp BP Pulse Ox
98.0 F 63 16 147/60 97
03/10/24 14:47 03/10/24 14:47 03/10/24 14:47 03/10/24 14:47 03/10/24 14:47
Last Documented Vital Signs
Temp Pulse Resp BP Pulse Ox
98.0 F 65 17 138/55 95
03/10/24 14:47 03/10/24 16:45 03/10/24 16:45 03/10/24 16:25 03/10/24 16:45
<Peyton Devine PA-C - Last Filed: 03/10/24 20:41>
MDM/Problems Addressed
Differential Diagnosis Includes:
Differentials include atrophic vaginitis, diverticular bleeding, anal fissure, bleeding hemorrhoid, colon polyp, colorectal carcinoma, bladder carcinoma, interstitial cystitis
MDM/Problems Addressed:
Blood with wiping:
This is a 83-year-old female with a past medical history of A-fib on Eliquis, insulin-dependent diabetes, CHF, CAD, hypertension, hyperlipidemia, diverticular bleed presenting to the emergency department today with concerns of blood she noticed when
wiping. This happened once today and once yesterday. Patient did have use bathroom while here in emergency department and did not notice any blood, bleeding seem to have subsided. On physical exam, there is no evidence of any bleeding, lesions,
within the vagina or rectum. Urinalysis negative for any microscopic hematuria. CT negative for any bladder masses or colon masses, did show a 2 cm sigmoid lesion which could represent prominent diverticulum or peridiverticular abscess, however
considering patient has no fever, no significant abdominal pain, and her labs are at baseline, no further workup is indicated. Does have a leukocytosis, but this is her baseline as she takes daily prednisone. Discussed return precautions, stable
for discharge.
Chronic conditions affecting care:
A-fib on Eliquis, insulin-dependent diabetes, heart failure, chronic kidney disease, hyperlipidemia, atherosclerosis, CVA
Acute Exacerbation and/or Progression of Chronic Illness:
Diverticulosis
<Peyton Devine PA-C - Last Filed: 03/10/24 20:41>
*Pulse Oximetry
Patient hypoxic: no
*Critical Care Note
Total Time (30-74mins, 75-104mins- exclusive of procedures): Not Applicable
Data Reviewed
Review of Other/Old Records Reveals: Records (Reviewed discharge summary from 11/11/23) and Discharge Summary (Reviewed discharge summary from 09/28/2023 patient was hospitalized for diverticular bleeding, also had a polyp removed at that time, stopped
Eliquis for the time bleeding, did not require any blood transfusion)
Source: patient and records
Prescriptions/Medications Considered But Not Given:
Considered holding Eliquis however patient's H&H is stable and she is not having any bleeding here in the emergency
ED Attending Note
<Peyton Devine PA-C - Last Filed: 03/10/24 20:41>
-
Portions of this chart may have been created with voice recognition software.� Occasional wrong word or��sound alike� substitutions may have occurred due to the inherent limitations of voice recognition software.
<Leighton Rodríguez DO - Last Filed: 03/10/24 17:19>
ED Attending Note
Patient seen and examined by attending physician: Yes
I performed the substantive portion of visit, reviewed & personally made and approve the management plan that is documented in note by myself or KRISTY.: Yes
Discharge Plan
Departure
Patient Disposition: Home (Routine Discharge)
Date of Disposition: 03/10/24
Time of Disposition: 18:19
Patient with high blood pressure during this ER visit?: Yes
Condition: Good
Discharge Problem:
Bleeding, Pelvic cramping
Instructions: Bloody Stools, Adult (DC), BLOOD PRESSURE
Prescriptions:
No Action
duloxetine 30 MG capsule,delayed release(DR/EC)
30 mg PO DAILY
atorvastatin 80 MG tablet
80 mg PO DAILY@1600
loratadine 10 MG tablet
10 mg PO DAILY
ferrous sulfate [iron] 325 mg (65 mg iron) Tablet
325 mg PO DAILY
cholecalciferol (vitamin D3) 25 mcg (1,000 unit) Tablet
25 mcg PO BID
cranberry 450 mg Tablet
450 mg PO BID Qty: 0
Vision Shield
1 tab PO BID
levalbuterol HCl 0.63 mg/3 mL Solution For Nebulization
0.63 mg INHALATION R Q6HPRN PRN (Reason: sob/wheezing)
prednisone 5 mg Tablet
5 mg PO TID
valsartan 80 mg Tablet
80 mg PO HS
acetaminophen [Tylenol Extra Strength] 500 mg Tablet
1,000 mg PO BIDPRN PRN (Reason: mild pain)
ketoconazole 2 % Cream
1 applic TOPICAL BID
fluticasone propionate [Flonase] 50 mcg/actuation Lopez,Suspension
2 spray INTRANASAL DAILY PRN (Reason: allergies)
diltiazem HCl [DILT-XR] 180 mg Capsule,Ext.Rel 24h Degradable
180 mg PO DAILY
insulin lispro protamin-lispro [Humalog Mix 75-25 KwikPen] 100 unit/mL (75-25) Insulin Pen
28 unit SC DAILY
insulin lispro protamin-lispro [Humalog Mix 75-25 KwikPen] 100 unit/mL (75-25) Insulin Pen
23 unit SC DAILY@1999
folic acid
1 tab PO DAILY
sennosides-docusate sodium [Stool Softener-Stimulant Laxat] 8.6-50 mg tablet
1 tab PO DAILY
dofetilide 125 MCG capsule
125 mcg PO Q12H
pantoprazole 40 mg tablet,delayed release (DR/EC)
40 mg PO DAILY@1600
furosemide 20 mg tablet
20 mg PO BID
metoprolol succinate 100 mg Tablet Extended Release 24 Hr
100 mg PO DAILY 30 Days Qty: 30 0RF
Eliquis 5 MG tablet
5 mg PO BID 30 Days Qty: 30 0RF
Referrals:
Kulwinder Briseno MD [Family Provider] -
Activity Restrictions/Additional Instructions:
Please return to the emergency department should you experience any increasing of your bleeding, dizziness, lightheadedness, chest pain, shortness of breath worsening of your abdominal pain, fevers or chills, or any other signs or symptoms
concerning to you.
Please continue to monitor your symptoms and follow-up with your primary care provider when you return home from your trip
Interventions
Interventions:
*Risk Screen - Suicide Last Done: 03/10/24 16:35
*General Assessment Last Done: 03/10/24 14:47
*Neglect/Abuse Screening Last Done: 03/10/24 16:35
ED- Fall Risk Assessment Last Done: 03/10/24 16:35
*ED COVID-19 Vaccine History Last Done: 03/10/24 14:47
*Nursing Disposition Last Done: 03/10/24 18:27
LZ-Cpulgw-Cyzbpsuhud Assessment Last Done: 03/10/24 16:35
ED- Cardiac Assessment Last Done: 03/10/24 16:35
ED- Pulmonary Assessment Last Done: 03/10/24 16:35
Discharge Date and Time
Discharge Date/Time: 03/10/24 18:28
Print Language: SPANISH
[2024-03-10 16:25] VITALS: BP 138/55
[2024-03-10 16:48] LABS: % Basophils 0.1 % (0-2); % Eosinophils 0.2 % (0-6); % Immature Granulocytes 0.8 % (0-0.5); % Lymphocytes 7.4 % (20.5-51.1); % Monocytes 5.5 % (1.7-9.3); Absolute Immature Granulocytes 0.1 10^3/uL (0-0.05); Absolute Lymphocytes 1.2 10^3/uL (1.2-3.4); Absolute Monocytes 0.9 10^3/uL (0.1-0.6); Absolute Neutrophils 14.1 10^3/uL (1.4-6.5); Hematocrit 35.7 % (37.0-47.0); Hemoglobin 11.3 g/dL (12.0-16.0); Mean Corp Hgb Conc. 31.7 g/dL (33.0-37.0); Mean Corpuscular Hgb 27.4 pg (27.0-31.0); Mean Corpuscular Volume 86.7 fL (81.0-99.0); Mean Platelet Volume 11.2 fL (7.4-10.4); Nucleated Red Blood Cells % 0 %; Platelet Count 206 10^3/uL (130-400); Red Blood Cell Count 4.12 10^6/uL (4.20-5.40); Red Cell Dist. Width 15.5 % (11.5-14.5); White Blood Cell Count 16.4 10^3/uL (4.8-10.8)
[2024-03-10 16:58] LABS: Blood Urea Nitrogen 42 mg/dl (7-17); Calcium 9.3 mg/dl (8.4-10.2); Carbon Dioxide 20 mmol/L (22-30); Chloride 110 mmol/L (98-107); Glucose 233 mg/dl (70-99); Sodium 137 mmol/L (135-145); eGFR 56.25
[2024-03-10] MEDS: NSS 1000 IV (17:30)
[2024-03-10 17:45] LABS: Urine Albumin Negative (Neg - Trace); Urine Bilirubin Negative (Negative); Urine Character Clear (Clear); Urine Color Yellow; Urine Glucose Negative (Negative); Urine Ketone Negative (Negative); Urine Leukocyte Negative (Negative); Urine Nitrite Negative (Negative); Urine Occult Blood Negative (Negative); Urine Urobilinogen Negative (Neg - 1+)
== END 2024-03-10 18:28 | disposition home or self-care (01) ==
LOC: EMR 14:42
PROVIDERS: Physician Assistant; EMERGENCY PHYSICIAN Emergency Medicine; FAMILY PHYSICIAN Family Medicine
DX: K62.5 Hemorrhage of anus and rectum (principal); R10.2 Pelvic and perineal pain; I48.91 Unspecified atrial fibrillation; I13.0 Hypertensive heart and chronic kidney disease with heart failure and stage 1 through stage 4 chronic kidney disease, or unspecified chronic kidney disease; I50.9 Heart failure, unspecified; E11.22 Type 2 diabetes mellitus with diabetic chronic kidney disease; N18.9 Chronic kidney disease, unspecified; E78.00 Pure hypercholesterolemia, unspecified; I25.10 Atherosclerotic heart disease of native coronary artery without angina pectoris; J45.909 Unspecified asthma, uncomplicated; Z79.01 Long term (current) use of anticoagulants; Z83.3 Family history of diabetes mellitus; Z86.73 Personal history of transient ischemic attack (TIA), and cerebral infarction without residual deficits; Z87.440 Personal history of urinary (tract) infections; Z90.49 Acquired absence of other specified parts of digestive tract; Z95.0 Presence of cardiac pacemaker; Z96.653 Presence of artificial knee joint, bilateral
CPT/HCPCS: 99284; 96360; 74177; 80048; 81003; 85025; Q9967

== ENCOUNTER 2024-04-15 11:45 | Outpatient (RCR) | payer MEDICARE, OTHER, SELFPAY | END 2024-04-19 06:26 | disposition home or self-care (01) | LOC: RPT 11:45 | PROVIDERS: ATTENDING PHYSICIAN Family Medicine | DX: I69.328 Other speech and language deficits following cerebral infarction (principal); R41.841 Cognitive communication deficit; I69.398 Other sequelae of cerebral infarction; Z73.6 Limitation of activities due to disability | CPT/HCPCS: 97110; 97112; 97129; 97130; 97530 ==

== ENCOUNTER → 2024-07-27 11:20 | Outpatient (REF) | payer MEDICARE, OTHER, SELFPAY | LOC: HWRCS 11:20 | PROVIDERS: ATTENDING PHYSICIAN Internal Medicine Cardiovascular Disease; FAMILY PHYSICIAN Family Medicine | DX: I48.91 Unspecified atrial fibrillation (principal); I42.9 Cardiomyopathy, unspecified; I10 Essential (primary) hypertension | CPT/HCPCS: 93306 ==